=== PATIENT | female | born 1965 | race Hispanic/Latino ===

== ENCOUNTER 2017-01-29 19:14 | Observation (INO) | payer MEDICAID ==
[2017-01-29 19:27] VITALS: BMI 24.7
[2017-01-29] MEDS ORDERED: Albuterol-Ipratrop 3 mg / 0.5 (3 ml) UD IH STA (19:57)
[2017-01-29] MEDS ORDERED: Sodium Chloride 0.9% 1,000 ML IV STA (19:57)
--- NOTE | 2017-01-29 20:02 | ED PDOC ---
Arrival/HPI - General Chief Complaint: Abdominal Pain Time Seen by Provider: 01/29/17 19:22 Historian: Patient - History of Present Illness Narrative History of Present Illness (Text): 01/29/17 19:59 Pt. to ED PMHX. Gastroparesis,Raynauds Phenomena,restless leg syndrome.copd, osteoprosis with c/o abdominal discomfort,nausea onset this evening.Pt. also describes some chest tightness.No hx. of any V/D. No fever or chills.No SOB. Past Medical History - Provider Review Nursing Documentation Reviewed: Yes - Travel History Have you recently traveled outside [place] w/in the past 3 mons?: No - Infectious Disease Hx of Infectious Diseases: None - Tetanus Immunization Tetanus Immunization: Unknown - Cardiac Hx Hypertension: Yes - Pulmonary Hx Chronic Obstructive Pulmonary Disease (COPD): Yes - Neurological Hx Neurological Disorder: Yes Hx Dizziness: Yes - HEENT Hx HEENT Disorder: Yes (TONSILLECTOMY) - Renal Hx Renal Disorder: No - Endocrine/Metabolic Hx Hypothyroidism: Yes - Hematological/Oncological Hx Blood Disorders: Yes Hx Anemia: Yes - Integumentary Hx Dermatological Disorder: No - Musculoskeletal/Rheumatological Hx Musculoskeletal Disorders: Yes Hx Falls: Yes - Gastrointestinal Hx Gastrointestinal Disorders: Yes (APPENDECTOMY,GASTRITIS,GASTROPARESIS, GASTROENTERITIS,) Hx Gastroesophageal Reflux: Yes - Genitourinary/Gynecological Hx Genitourinary Disorders: No (TUBAL LIGATION,HYSTERECTOMY) - Psychiatric Hx Psychophysiologic Disorder: Yes (RX DRUG ABUSE,ETOH ABUSE,SMOKED CIGARETTES QUIT 2 YRS AGO) Hx Anxiety: Yes Hx Depression: Yes Hx Substance Use: Yes (RX DRUG ABUSE) Other/Comment: ANEMIA - Surgical History Hx Appendectomy: Yes Hx Hysterectomy: Yes Other/Comment: tubal ligation - Anesthesia Hx Anesthesia: Yes Hx Anesthesia Reactions: No Hx Malignant Hyperthermia: No - Suicidal Assessment Feels Threatened In Home Enviroment: No Family/Social History - Physician Review Nursing Documentation Reviewed: Yes Family/Social History: No Known Family HX Smoking Status: Former Smoker Hx Alcohol Use: Yes (DRINKS DAILY 3-4 GLASSES OF WINE AND A BOTTLE OF [employer] FINISH IT IN A WEEK) Hx Substance Use: Yes (RX DRUG ABUSE) Hx Substance Use Treatment: No Allergies/Home Meds Allergies/Adverse Reactions: Allergies No Known Allergies Allergy (Verified 11/03/16 18:38) Home Medications: Home Meds Medication Instructions Recorded Confirmed Omeprazole [PrilOSEC] 20 mg PO DAILY 05/22/12 01/29/17 Alendronate [Fosamax] 70 mg PO QWK 07/01/16 01/29/17 Atorvastatin [Lipitor] 20 mg PO DAILY 07/01/16 01/29/17 Fluticasone/Salmeterol 250/50 1 puff IH BID 07/01/16 01/29/17 [Advair Diskus 250/50] Lubiprostone [Amitiza] 24 mcg PO BID 07/01/16 01/29/17 Ergocalciferol [Drisdol 50,000 50,000 units PO DAILY 11/03/16 01/29/17 Intl Units Cap] Escitalopram [Lexapro] 10 mg PO DAILY 11/03/16 01/29/17 Lorazepam [Ativan] 0.5 mg PO Q8 11/03/16 01/29/17 Metoclopramide [Reglan] 5 mg PO QID 11/03/16 01/29/17 Multivit-Min/Iron/Folic/Lutein 1 tab PO DAILY 11/03/16 01/29/17 [Centrum Silver Women Tablet] Tiotropium Pax[place] Inhaler 1 puff INH DAILY 11/03/16 01/29/17 [Spiriva Inhalation Handihaler Device] Zolpidem [Ambien] 5 mg PO HS PRN 11/03/16 01/29/17 traMADol [Ultram] 50 mg PO TID 11/03/16 01/29/17 Review of Systems - Review of Systems Constitutional: Normal Eyes: Normal ENT: Normal Respiratory: Normal Cardiovascular: Normal Gastrointestinal: Abdominal Pain, Nausea Genitourinary Female: Normal Musculoskeletal: Normal Skin: Normal Neurological: Normal Endocrine: Normal Hemo/Lymphatic: Normal Psychiatric: Normal Physical Exam Vital Signs Temp Pulse Resp BP Pulse Ox 01/30/17 01:04 73 116/85 96 01/29/17 22:57 98.1 F 85 16 129/80 100 01/29/17 19:27 97.7 F 103 H 20 120/84 97 Temperature: Afebrile Blood Pressure: Normal Pulse: Regular Respiratory Rate: Normal Appearance: Positive for: Well-Appearing, Non-Toxic, Comfortable Pain Distress: None Mental Status: Positive for: Alert and Oriented X 3 - Systems Exam Head: Present: Atraumatic, Normocephalic Pupils: Present: PERRL Extroacular Muscles: Present: EOMI Conjunctiva: Present: Normal Ears: Present: NORMAL TM Mouth: Present: Moist Mucous Membranes Neck: Present: Normal Range of Motion Respiratory/Chest: Present: Clear to Auscultation, Good Air Exchange. No: Respiratory Distress, Accessory Muscle Use Cardiovascular: Present: Regular Rate and Rhythm, Normal S1, S2. No: Murmurs Abdomen: Present: Normal Bowel Sounds. No: Tenderness, Distention, Peritoneal Signs Back: Present: Normal Inspection Upper Extremity: Present: Normal Inspection. No: Cyanosis, Edema Lower Extremity: Present: Normal Inspection. No: Edema Neurological: Present: GCS=15, CN II-XII Intact, Speech Normal, Motor Func Grossly Intact, Normal Sensory Function Skin: Present: Warm, Dry, Normal Color. No: Rashes Psychiatric: Present: Alert, Oriented x 3, Normal Insight, Normal Concentration Medical Decision Making ED Course and Treatment: 01/29/17 22:22 Reviewed radiology, CXR shows no active disease. - Lab Interpretations Lab Results: 01/29/17 20:20 01/29/17 20:20 Lab Results 01/29/17 20:20: WBC 9.6, RBC 4.77, Hgb 12.8, Hct 39.0, MCV 81.8, MCH 26.8, MCHC 32.8, RDW 13.4, Plt Count 355, MPV 9.8 01/29/17 20:20: Sodium 139, Potassium 4.2, Chloride 97 L, Carbon Dioxide 29, Anion Gap 17, BUN 19, Creatinine 1.2, Est GFR ( Amer) 57, Est GFR (Non- Af Amer) 47, Random Glucose 87, Calcium 10.5, Total Bilirubin 0.5, AST 34, ALT 22, Alkaline Phosphatase 49, Lactate Dehydrogenase 366, Total Creatine Kinase 44 , Troponin I < 0.01 D, Total Protein 8.9 H, Albumin 4.8, Globulin 4.2, Albumin/ Globulin Ratio 1.1, Lipase 52 01/29/17 20:20: PT 11.1, INR 1.03, APTT 25.7 - RAD Interpretation Radiology Orders: 01/29/17 19:57 CHEST PORTABLE [RAD] Stat 01/29/17 22:55 ABD & PELVIS W/O PO OR IV CONT [CT] Stat - EKG Interpretation EKG Interpretation (Text): EKG shows NSR at 80 BPM with normal intervals. Normal EKG. Interpreted by me. Interpreted by ED Physician: Yes Type: 12 lead EKG - Medication Orders Current Medication Orders: Discontinued Medications Albuterol/Ipratropium (Duoneb 3 Mg/0.5 Mg (3 Ml) Ud) 3 ml IH ONCE STA Stop: 01/29/17 19:58 Last Admin: 01/29/17 20:30 Dose: 3 ml Famotidine (Pepcid) 20 mg IVP STAT STA Stop: 01/29/17 19:58 Last Admin: 01/29/17 20:30 Dose: 20 mg Sodium Chloride (Sodium Chloride 0.9%) 1,000 mls @ 999 mls/hr IV .Q1H1M STA Stop: 01/29/17 20:57 Last Admin: 01/29/17 20:31 Dose: 999 mls/hr Iohexol (Omnipaque 350 100 Ml) Confirm Administered Dose 350 mg .ROUTE .STK-MED ONE Stop: 01/29/17 23:19 Ketorolac Tromethamine (Toradol) 30 mg IVP ONCE ONE Stop: 01/29/17 19:58 Last Admin: 01/29/17 20:31 Dose: 30 mg Metoclopramide HCl (Reglan) 10 mg IVP ONCE ONE Stop: 01/29/17 22:57 Last Admin: 01/29/17 23:39 Dose: 10 mg Morphine Sulfate (Morphine) 2 mg IVP STAT STA Stop: 01/29/17 22:57 Last Admin: 01/29/17 23:39 Dose: 2 mg Ondansetron HCl (Zofran Inj) 4 mg IVP ONCE ONE Stop: 01/29/17 19:58 Last Admin: 01/29/17 20:31 Dose: 4 mg ED OBSERVATION Date of observation admission: 01/29/17 Time of observation admission: 20:00 - Observation admission statement Patient is being placed in observation because:: evaluation of chest/abdominal pain - Goals of Observation Goals of observation are:: treatment of symptoms, determine etiology of symptoms - Progress Note Progress Note: 01/29/17 20:00 EKG shows NSR at 80 BPM with normal intervals. Normal EKG. Interpreted by me. 05/12/17 22:22 Reviewed radiology, CXR shows no active disease. 01/30/17 00:00 Pt in no acute distress, vital signs stable. 01/30/17 01:13 CT Abdomen and Pelvis shows: Lower thorax: There is minimal bibasilar atelectasis. ABDOMEN: Liver: There are no focal liver lesions present. Gallbladder and bile ducts: The gallbladder is contracted but otherwise normal. No calcified stones. No ductal dilation. Pancreas: The pancreas is normal. No ductal dilation. Spleen: The spleen is normal. Adrenals: The adrenal glands are normal. Kidneys and ureters: There is a 5 mm nonobstructing left upper pole renal calculus. There is no evidence of hydronephrosis. Stomach and bowel: The stomach is normal. Colonic constipation is present. There is no evidence of intestinal obstruction. No mucosal thickening. Appendix: No findings to suggest acute appendicitis. PELVIS: Bladder: The bladder is normal. No stones. Reproductive: There has been a hysterectomy. ABDOMEN and PELVIS: Intraperitoneal space: There is no evidence of free intraperitoneal fluid. There is no free intraperitoneal air. Bones/joints: No acute fracture. No dislocation. Soft tissues: Unremarkable. Vasculature: The aorta demonstrates moderate atherosclerotic calcification. No abdominal aortic aneurysm. Lymph nodes: There is no evidence of lymphadenopathy. IMPRESSION: No acute findings. 01/30/17 01:16 Case discussed with medical assistant secretary, who is aware and agrees with plan. Case discussed with Dr. Hernandez, who is aware and agrees with plan. Accepts pt in to hospitalist service. Pt will go to Telemetry observation for chest pain. Pt agreeable with plan. Disposition/Present on Arrival - Present on Arrival Any Indicators Present on Arrival: No History of DVT/PE: No History of Uncontrolled Diabetes: No Urinary Catheter: No History of Decub. Ulcer: No History Surgical Site Infection Following: None - Disposition Have Diagnosis and Disposition been Completed?: Yes Diagnosis: Chest pain, Abdominal pain Disposition: HOSPITALIZED Disposition Time: 01:31 Patient Plan: Observation Patient Problems: Current Active Problems Problem Status Onset Abdominal pain Acute Chest pain Acute Condition: STABLE Discharge Instructions (ExitCare): Chest Pain (ED)
[2017-01-29 20:35] LABS: MEAN CELL VOLUME 81.8 fL (80.0-105.0); MEAN CORPUSCULAR HEMOGLOBIN 26.8 pg (25.0-35.0); MEAN CORPUSCULAR HGB CONC 32.8 g/dl (31.0-37.0); MEAN PLATELET VOLUME 9.8 fl (7.0-11.0); RED CELL DISTRIBUTION WIDTH 13.4 % (11.5-14.5); WHITE BLOOD COUNT 9.6 10^3/ul (4.5-11.0)
[2017-01-29 20:42] LABS: ALB/GLOB RATIO 1.1 (1.1-1.8); ALKALINE PHOSPHATASE 49 U/L (38-133); ALT/SGPT 22 U/L (7-56); AST/SGOT 34 U/L (15-39); BILIRUBIN,TOTAL 0.5 mg/dL (0.2-1.3); BLOOD UREA NITROGEN 19 mg/dL (7-21); CALCIUM 10.5 mg/dL (8.4-10.5); CARBON DIOXIDE 29 mmol/L (21-33); CHLORIDE 97 mmol/L (98-107); GFR AFRICAN-AMERICAN 57; GLUCOSE,RANDOM 87 mg/dL (70-110); INR 1.03 (0.93-1.08); LIPASE 52 U/L (23-300); PARTIAL THROMBOPLASTIN TIME 25.7 Seconds (23.7-30.8); POTASSIUM 4.2 mmol/L (3.6-5.0); SODIUM 139 mmol/L (132-148); TOTAL PROTEIN 8.9 g/dL (5.8-8.3)
[2017-01-29 21:09] LABS: TROPONIN I < 0.01 ng/mL
[2017-01-29] MEDS ORDERED: Morphine 2 mg/ml ISec IVP STA (22:56)
[2017-01-29] MEDS ORDERED: Iohexol 350 MG/100 ML VIAL ONE (23:18)
--- NOTE | 2017-01-30 00:54 | CT ---
EXAM: CT Abdomen and Pelvis Without Intravenous Contrast CLINICAL HISTORY: 51 years old, female; Pain; Abdominal pain; Acute TECHNIQUE: Axial computed tomography images of the abdomen and pelvis without intravenous contrast. This CT exam was performed using one or more of the following dose reduction techniques: automated exposure control, adjustment of the mA and/or kV according to patient size, and/or use of iterative reconstruction technique. Coronal and sagittal reformatted images were created and reviewed. COMPARISON: CT - ABD PELVIS PO CONTRAST ONLY 08/10/2016 5:19:04 PM FINDINGS: Lower thorax: There is minimal bibasilar atelectasis. ABDOMEN: Liver: There are no focal liver lesions present. Gallbladder and bile ducts: The gallbladder is contracted but otherwise normal. No calcified stones. No ductal dilation. Pancreas: The pancreas is normal. No ductal dilation. Spleen: The spleen is normal. Adrenals: The adrenal glands are normal. Kidneys and ureters: There is a 5 mm nonobstructing left upper pole renal calculus. There is no evidence of hydronephrosis. Stomach and bowel: The stomach is normal. Colonic constipation is present. There is no evidence of intestinal obstruction. No mucosal thickening. Appendix: No findings to suggest acute appendicitis. PELVIS: Bladder: The bladder is normal. No stones. Reproductive: There has been a hysterectomy. ABDOMEN and PELVIS: Intraperitoneal space: There is no evidence of free intraperitoneal fluid. There is no free intraperitoneal air. Bones/joints: No acute fracture. No dislocation. Soft tissues: Unremarkable. Vasculature: The aorta demonstrates moderate atherosclerotic calcification. No abdominal aortic aneurysm. Lymph nodes: There is no evidence of lymphadenopathy. IMPRESSION: No acute findings.
[2017-01-30 02:42] VITALS: O2SAT 94
[2017-01-30] MEDS: Sodium Chloride 0.9% 1,000 ML IV SCH ×2 (02:44→11:15)
--- NOTE | 2017-01-30 02:45 | US ---
EXAM: US Abdomen Complete CLINICAL HISTORY: 51 years old, female; Pain; Abdominal pain; Generalized; Additional info: Evaluate for cholelithiasis TECHNIQUE: Real-time ultrasound of the abdomen (complete) with image documentation. COMPARISON: CT - ABD PELVIS W/O PO OR IV CONT 01/29/2017 11:55:49 PM FINDINGS: Liver: Normal echogenicity. No mass. No intrahepatic bile duct dilatation. Gallbladder: No gallstones. No wall thickening. No pericholecystic fluid. No sonographic Campos's sign. Common bile duct: No dilatation. No stones. Pancreas: Unremarkable as visualized. Kidneys: Normal echogenicity. No hydronephrosis. Spleen: No splenomegaly. Aorta: Unremarkable. No aneurysm. Inferior vena cava: Unremarkable. Free fluid: No significant free fluid. IMPRESSION: 1.No acute findings. 2.Non-acute findings are described above.
--- NOTE | 2017-01-30 03:21 | CP.PCM.HP ---
History of Present Illness - History of Present Illness History of Present Illness: The patient is a 51 year old woman with a history of rheumatoid arthritis, osteoporosis, Parkinson's disease, hypercholesterolemia, restless leg syndrome, hypothyroidism, COPD and gastroparesis, who presents with chest pain and abdominal pain. She states that the two areas are distinct and started at different times. The chest pain began approximately 30 minutes prior to her arrival to the ED. It is a constant, non-radiating, substernal "tightness". The pain is not associated with exertion, oral intake, SOB or diaphoresis. The abdominal pain is intermittent and located in both the RUQ and mid-epigastric regions. The abdominal pain is unaffected by oral intake but is associated with nausea. She denies bowel abnormalities, abdominal distention, dysuria, F/C, recent travel or recent dietary changes. Her abdominal pain began two days ago. Of note, previous records indicate that patient has a history of polysubstance abuse which she denied completely during the interview. She will be admitted to the telemetry [facility] for observation, in order to rule out ACS. Present on Admission - Present on Admission Any Indicators Present on Admission: No History of DVT/PE: No History of Uncontrolled Diabetes: No Urinary Catheter: No Review of Systems - Review of Systems All systems: reviewed and no additional remarkable complaints except - Constitutional Constitutional: As Per HPI - EENT Eyes: As Per HPI Ears: As Per HPI Nose/Mouth/Throat: As Per HPI - Cardiovascular Cardiovascular: As Per HPI - Respiratory Respiratory: As Per HPI - Gastrointestinal Gastrointestinal: As Per HPI - Genitourinary Genitourinary: As Per HPI - Musculoskeletal Musculoskeletal: As Per HPI - Neurological Neurological: As Per HPI Past Patient History - Infectious Disease Hx of Infectious Diseases: None - Tetanus Immunizations Tetanus Immunization: Unknown - Past Social History Smoking Status: Former Smoker Drugs: Denies - CARDIAC Hx Hypertension: Yes - PULMONARY Hx Chronic Obstructive Pulmonary Disease (COPD): Yes - NEUROLOGICAL Hx Neurological Disorder: Yes Hx Dizziness: Yes - HEENT Hx HEENT Problems: Yes (TONSILLECTOMY) - RENAL Hx Chronic Kidney Disease: No - ENDOCRINE/METABOLIC Hx Hypothyroidism: Yes - HEMATOLOGICAL/ONCOLOGICAL Hx Blood Disorders: Yes Hx Anemia: Yes - INTEGUMENTARY Hx Dermatological Problems: No - MUSCULOSKELETAL/RHEUMATOLOGICAL Hx Musculoskeletal Disorders: Yes Hx Falls: Yes - GASTROINTESTINAL Hx Gastrointestinal Disorders: Yes (APPENDECTOMY,GASTRITIS,GASTROPARESIS, GASTROENTERITIS,) Hx Gastroesophageal Reflux: Yes - GENITOURINARY/GYNECOLOGICAL Hx Genitourinary Disorders: No (TUBAL LIGATION,HYSTERECTOMY) - PSYCHIATRIC Hx Psychophysiologic Disorder: Yes (RX DRUG ABUSE,ETOH ABUSE,SMOKED CIGARETTES QUIT 2 YRS AGO) Hx Anxiety: Yes Hx Depression: Yes Hx Substance Use: Yes (RX DRUG ABUSE) Other/Comment: ANEMIA - SURGICAL HISTORY Hx Appendectomy: Yes Hx Hysterectomy: Yes Other/Comment: tubal ligation - ANESTHESIA Hx Anesthesia: Yes Hx Anesthesia Reactions: No Hx Malignant Hyperthermia: No Meds Allergies/Adverse Reactions: Allergies Allergy/AdvReac Type Severity Reaction Status Date / Time No Known Allergies Allergy Verified 11/03/16 18:38 Physical Exam - Constitutional Additional comments: Mildly uncomfortable appearing due to abdominal and chest pains. A&Ox4 - Head Exam Head Exam: ATRAUMATIC, NORMAL INSPECTION, NORMOCEPHALIC - Eye Exam Eye Exam: EOMI, Normal appearance, PERRL - ENT Exam ENT Exam: Mucous Membranes Moist, Normal Exam Additional comments: Anicteric sclera - Neck Exam Neck exam: Positive for: Normal Inspection - Respiratory Exam Respiratory Exam: Clear to Auscultation Bilateral, NORMAL BREATHING PATTERN - Cardiovascular Exam Cardiovascular Exam: REGULAR RHYTHM Additional comments: No reproducible chest tenderness - GI/Abdominal Exam Additional comments: Mild tenderness to palpation in the mid-epigastric and RUQ regions; No rebound tenderness or peritoneal signs. Non-distended, soft abdomen with normal bowel sounds. No flank tenderness. Results - Vital Signs Recent Vital Signs: Last Vital Signs Temp 98.1 F 01/29/17 22:57 Pulse 74 01/30/17 02:42 Resp 16 01/30/17 02:42 BP 124/89 01/30/17 02:42 Pulse Ox 94 L 01/30/17 02:42 - Labs Result Diagrams: 01/29/17 20:20 01/29/17 20:20 - Imaging and Cardiology CT scan - abdomen Status: Report reviewed by me Assessment & Plan - Assessment and Plan (Free Text) Plan: A/P: The patient is a 51 year old woman with a history of rheumatoid arthritis, osteoporosis, Parkinson's disease, hypercholesterolemia, restless leg syndrome, hypothyroidism, COPD and gastroparesis, who is being admitted to the telemetry [facility] for observation in order to rule out ACS and control her abdominal pain. 1. Chest Pain (rule out ACS): -cardiac risk factors include, chronic cigarette smoker, RA and dyslipidemia -check serial trop's and EKG's -will also check HgA1c, lipid panel and thyroid function tests -will start baby ASA and continue pt's home dose of Lipitor -order for on-call hydraulic spinner placed (Dr. Fortune) -heart healthy diet while pt's being ruled out for ACS -check urine drug screen -of note, patient had a normal MUGA scan back in Sep 2016 2. Acute Abdominal Pain: -ddx: Cholelithiasis vs GERD -CT-A/P negative for acute disease -will order a RUQ U/S to better evaluate for gallstones -Protontix 40mg IV daily -PRN IV Zofran and Morphine as needed for symptomatic relief 3. Hypothyroidism: -continue home dose of Synthroid -check thyroid function tests 4. Hypercholesterolemia: -continue home dose of Lipitor 10mg qhs -check lipid panel 5. COPD: -no acute symptoms -continue home maintenance regimen -O2 via NC as needed to keep sats > 92% DVT PPx: SCD's and SC Lovenox GI PPx: Protonix
[2017-01-30] MEDS: Morphine 2 mg/ml ISec IVP PRN ×2 (03:29→09:07)
[2017-01-30 04:15] VITALS: RESP 20
[2017-01-30] MEDS ORDERED: Levothyroxine 50 MCG TAB PO SCH (07:30)
[2017-01-30 07:53] LABS: ADD MANUAL DIFF? NO
[2017-01-30] MEDS ORDERED: Budesonide 0.5 mg/2 ml Inhal Susp UD IH SCH (08:00)
[2017-01-30] MEDS ORDERED: Arformoterol 15 mcg/2 ml Inh Sol IH SCH (08:00)
[2017-01-30 08:02] LABS: BASO # 0.05 K/mm3 (0.0-2.0); BASO % 0.6 % (0.0-3.0); EOS # 0.2 (0.0-0.7); EOS % 2.3 % (1.5-5.0); GRAN # 4.76 (1.4-6.5); GRAN % 58.1 % (50.0-68.0); HEMATOCRIT 35.4 % (36.0-48.0); LYMPH # 2.6 (1.2-3.4); MEAN CELL VOLUME 82.5 fL (80.0-105.0); MEAN CORPUSCULAR HEMOGLOBIN 26.6 pg (25.0-35.0); MEAN CORPUSCULAR HGB CONC 32.2 g/dl (31.0-37.0); MEAN PLATELET VOLUME 10.1 fl (7.0-11.0); MONO # 0.6 (0.1-0.6); PLATELET COUNT 286 10^3/uL (120.0-450.0); RED CELL DISTRIBUTION WIDTH 13.6 % (11.5-14.5); WHITE BLOOD COUNT 8.2 10^3/ul (4.5-11.0)
[2017-01-30 08:07] LABS: TROPONIN I < 0.01 ng/mL
[2017-01-30 08:17] LABS: ALB/GLOB RATIO 1.2 (1.1-1.8); ALKALINE PHOSPHATASE 47 U/L (38-133); ALT/SGPT 33 U/L (7-56); AST/SGOT 39 U/L (15-39); BILIRUBIN,TOTAL 0.6 mg/dL (0.2-1.3); BLOOD UREA NITROGEN 15 mg/dL (7-21); CALCIUM 9.3 mg/dL (8.4-10.5); CARBON DIOXIDE 26 mmol/L (21-33); CHLORIDE 106 mmol/L (98-107); CHOLESTEROL 172 mg/dL (130-200); GFR AFRICAN-AMERICAN > 60; GLUCOSE,RANDOM 88 mg/dL (70-110); MAGNESIUM 1.8 mg/dL (1.7-2.2); PHOSPHOROUS 4.1 mg/dL (2.5-4.5); POTASSIUM 4.5 mmol/L (3.6-5.0); SODIUM 142 mmol/L (132-148); TOTAL PROTEIN 7.4 g/dL (5.8-8.3)
[2017-01-30 08:27] LABS: FREE T4 0.89 ng/dL (0.78-2.19)
--- NOTE | 2017-01-30 08:53 | RAD ---
HISTORY: abdominal pain COMPARISON: 11/03/2016 FINDINGS: LUNGS: No active pulmonary disease. PLEURA: No significant pleural effusion identified, no pneumothorax apparent. CARDIOVASCULAR: Normal. OSSEOUS STRUCTURES: No significant abnormalities. VISUALIZED UPPER ABDOMEN: Normal. OTHER FINDINGS: None. IMPRESSION: No active disease. No significant interval change.
[2017-01-30 09:15] LABS: THYROID STIMULATING HORMONE 2.32 mIU/mL (0.46-4.68)
[2017-01-30] MEDS ORDERED: Ergocalciferol 50,000 Intl Units Cap PO SCH (10:00)
[2017-01-30] MEDS ORDERED: Enoxaparin 30 mg Syringe SC SCH (10:00)
[2017-01-30] MEDS ORDERED: Tiotropium 18 mcg Cap For Inhalation INH SCH (10:00)
[2017-01-30] MEDS ORDERED: Multivitamin With Minerals Tab PO SCH (10:00)
--- NOTE | 2017-01-30 10:00 | CARD ---
APPROVED REPORT EKG Measurement Heart [id number] CT [id number] [id number] <Conclusion> Normal sinus rhythm LVH by voltage No change except slower rate
[2017-01-30 11:40] VITALS: BP 118/83; PULSE 80; TEMP 97.9
[2017-01-30 14:21] LABS: TROPONIN I < 0.01 ng/mL
--- NOTE | 2017-01-30 14:31 | CON ---
DATE: 01/30/2017 REASON FOR CONSULTATION: Chest pain. HISTORY OF PRESENT ILLNESS: The patient is a 51-year-old white female who has a history of parkinson ism, history of rheumatoid arthritis, osteoporosis, COPD, hypothyroidism and gastroparesis, presented because of what she describes as chest tightness that is not radiating. The patient denies any asso ciated diaphoresis, dizziness or syncope. SOCIAL HISTORY: The patient is a former smoker who quit recently. MEDICATIONS: Ambien 5 mg at bedtime, aspirin 81 mg once a day, Ativan 2 mg intravenously q. 4 hours, Fosamax 70 mg p.o. weekly, Lipitor 20 mg once a day, Lovenox 30 mg subcutaneous once a day, Protonix 40 mg intravenously once a day, Reglan 10 mg intravenously q. 6 hours, normal saline at 100 mL an ho ur, Synthroid 50 mcg once a day, multivitamin 1 tablet once a day. PHYSICAL EXAMINATION: GENERAL: The patient is a middle-aged female who does not appear to be in any distress. VITAL SIGNS: Blood pressure 118/83, heart rate 80, temperature 97.9, respirations 20. HEENT: Normocephalic. NECK: No JVD. CHEST: Clear. HEART: S1, S2 regular. ABDOMEN: Soft. EXTREMITIES: No edema, no calf tenderness. LABORATORY DATA: Hemoglobin and hematocrit 11.4 and 35.4. White count and platelet count are within normal limits. Alcohol level is below 10. Today's SMA-7 is entirely within normal limits. Two set s of troponins are negative. Lipid profile is within normal limits. TSH level as well as free T4 ar e within normal limits. EKG revealed sinus rhythm, minimal voltage criteria for LVH. Echocardiograp h study in June of last year revealed an ejection fraction in the range of 45%-50% with mild globa l hypokinesis of the left ventricle. ASSESSMENT: 1. Chest pain, myocardial infarction is ruled out. 2. Mildly depressed left ventricular systolic function. 3. Parkinsonism. RECOMMENDATIONS: I did review the abdominal ultrasound which revealed no acute findings. I also rev iewed the x-ray, which was unremarkable except for prominent bronchovascular markings. Continue curre nt aspirin 81 mg once a day, Lipitor 20 mg once a day, Synthroid at 50 mcg once a day, start Cozaar 2 5 mg orally once a day and Lopressor 25 mg twice a day. Terrence Turcios MD cc: [id number] TT: 01/30/2017 14:30:33 Confirmation # [id number] Dictation # [id number] rn
[2017-01-30] MEDS ORDERED: Alum-Mag Hydrox-Simethicone Susp (30 mL) PO ONE (14:50)
--- NOTE | 2017-01-30 14:50 | CP.PCM.DIS ---
<Chuck Jimenez - Last Filed: 01/31/17 15:11> Provider - Provider Date of Admission: 01/30/17 02:21 Attending physician: Juanita Singh MD Primary care physician: Dr. Lomas Consults: Cardio: Devika Time Spent in preparation of Discharge (in minutes): 45 Hospital Course - Lab Results Lab Results: Most Recent Lab Values WBC 8.2 10^3/ul (4.5-11.0) 01/30/17 06:30 RBC 4.29 10^6/uL (3.5-6.1) 01/30/17 06:30 Hgb 11.4 gm/dL (12.0-16.0) L 01/30/17 06:30 Hct 35.4 % (36.0-48.0) L 01/30/17 06:30 MCV 82.5 fL (80.0-105.0) 01/30/17 06:30 MCH 26.6 pg (25.0-35.0) 01/30/17 06:30 MCHC 32.2 g/dl (31.0-37.0) 01/30/17 06:30 RDW 13.6 % (11.5-14.5) 01/30/17 06:30 Plt Count 286 10^3/uL (120.0-450.0) 01/30/17 06:30 MPV 10.1 fl (7.0-11.0) 01/30/17 06:30 Gran % 58.1 % (50.0-68.0) 01/30/17 06:30 Lymph % (Auto) 32.0 % (22.0-35.0) 01/30/17 06:30 [place] % (Auto) 7.0 % (1.0-6.0) H 01/30/17 06:30 Eos % (Auto) 2.3 % (1.5-5.0) 01/30/17 06:30 Baso % (Auto) 0.6 % (0.0-3.0) 01/30/17 06:30 Gran # 4.76 (1.4-6.5) 01/30/17 06:30 Lymph # 2.6 (1.2-3.4) 01/30/17 06:30 [place] # 0.6 (0.1-0.6) 01/30/17 06:30 Eos # 0.2 (0.0-0.7) 01/30/17 06:30 Baso # 0.05 K/mm3 (0.0-2.0) 01/30/17 06:30 PT 11.1 Seconds (9.9-11.8) 01/29/17 20:20 INR 1.03 (0.93-1.08) 01/29/17 20:20 APTT 25.7 Seconds (23.7-30.8) 01/29/17 20:20 Sodium 142 mmol/L (132-148) 01/30/17 06:30 Potassium 4.5 mmol/L (3.6-5.0) 01/30/17 06:30 Chloride 106 mmol/L (98-107) 01/30/17 06:30 Carbon Dioxide 26 mmol/L (21-33) 01/30/17 06:30 Anion Gap 15 (10-20) 01/30/17 06:30 BUN 15 mg/dL (7-21) 01/30/17 06:30 Creatinine 1.1 mg/dL (0.5-1.4) 01/30/17 06:30 Est GFR ( Amer) > 60 01/30/17 06:30 Est GFR (Non-Af Amer) 52 01/30/17 06:30 Random Glucose 88 mg/dL (70-110) 01/30/17 06:30 Calcium 9.3 mg/dL (8.4-10.5) 01/30/17 06:30 Phosphorus 4.1 mg/dL (2.5-4.5) 01/30/17 06:30 Magnesium 1.8 mg/dL (1.7-2.2) 01/30/17 06:30 Total Bilirubin 0.6 mg/dL (0.2-1.3) 01/30/17 06:30 AST 39 U/L (15-39) 01/30/17 06:30 ALT 33 U/L (7-56) 01/30/17 06:30 Alkaline Phosphatase 47 U/L (38-133) 01/30/17 06:30 Lactate Dehydrogenase 366 U/L (333-699) 01/29/17 20:20 Total Creatine Kinase 39 U/L (35-230) 01/30/17 13:50 Troponin I < 0.01 ng/mL 01/30/17 13:50 Total Protein 7.4 g/dL (5.8-8.3) 01/30/17 06:30 Albumin 4.1 g/dL (3.0-4.8) 01/30/17 06:30 Globulin 3.3 gm/dL 01/30/17 06:30 Albumin/Globulin Ratio 1.2 (1.1-1.8) 01/30/17 06:30 Triglycerides 143 mg/dL (35-160) 01/30/17 06:30 Cholesterol 172 mg/dL (130-200) 01/30/17 06:30 LDL Cholesterol Direct 86 mg/dL (0-129) 01/30/17 06:30 HDL Cholesterol 39 mg/dL (29-60) 01/30/17 06:30 Lipase 52 U/L (23-300) 01/29/17 20:20 Free T4 0.89 ng/dL (0.78-2.19) 01/30/17 06:30 TSH 3rd Generation 2.32 mIU/mL (0.46-4.68) 01/30/17 06:30 Urine Opiates Screen Positive (NEGATIVE) H 01/30/17 12:15 Urine Methadone Screen Negative (NEGATIVE) 01/30/17 12:15 Ur Barbiturates Screen Negative (NEGATIVE) 01/30/17 12:15 Ur Phencyclidine Scrn Negative (NEGATIVE) 01/30/17 12:15 Ur Amphetamines Screen Negative (NEGATIVE) 01/30/17 12:15 U Benzodiazepines Scrn Negative (NEGATIVE) 01/30/17 12:15 U Oth Cocaine Metabols Negative (NEGATIVE) 01/30/17 12:15 U Cannabinoids Screen Negative (NEGATIVE) 01/30/17 12:15 Alcohol, Quantitative < 10 mg/dL (0-10) 01/30/17 06:30 - Hospital Course Hospital Course: Upon Admission: 51yo F with PMHx of RA, Osteoporosis, Parkinson's, Hypercholesterolemia, Restless leg, Hypothyroidism, COPD, Gastroparesis here for evaluation of chest pain and abdominal pain. EKG with no acute findings. Troponins were negative x3 and ACS was ruled out. CXR - negative. CT Abd/Pelvis was negative. Abd US was negative. Cardiology consult was obtained who recommended continued current management and cleared for discharge with out-patient follow-up. Patient was deemed stable for discharge with close follow up with her PMD. Patient was given prescription for Protonix. Patient understands and agrees with plan. 1. Chest pain; ACS ruled out 2. Abd pain; Protonix 40mg Daily 3. Hx of Hypothyroidism 4. Hx of HLD 5. Hx of COPD 6. Hx of Parkinson's Upon Discharge: Patient is cleared for discharge as per Dr. Singh 1. Follow up with your Primary Care Physician within 1 week 2. You may resume your home meds 3. Take new med as directed 4. Return to the ER with any concerning symptoms New Prescription: Protonix 40mg PO Daily #30/0 Discharge Exam - Head Exam Head Exam: ATRAUMATIC, NORMAL INSPECTION, NORMOCEPHALIC - Eye Exam Eye Exam: EOMI, Normal appearance. absent: Scleral icterus - ENT Exam ENT Exam: Mucous Membranes Moist - Respiratory Exam Respiratory Exam: Clear to PA & Lateral, NORMAL BREATHING PATTERN, UNREMARKABLE. absent: Rhonchi, Wheezes - Cardiovascular Exam Cardiovascular Exam: RRR, +S1, +S2. absent: JVD - GI/Abdominal Exam GI & Abdominal Exam: Normal Bowel Sounds, Soft. absent: Distended, Firm, Guarding, Rebound, Rigid, Tenderness - Extremities Exam Extremities exam: normal inspection - Neurological Exam Neurological exam: Alert, Oriented x3 - Psychiatric Exam Psychiatric exam: Normal Affect, Normal Mood - Skin Skin Exam: Dry, Intact, Normal Color, Warm Discharge Plan - Discharge Medications Prescriptions: Pantoprazole Sodium [Protonix] 40 mg PO DAILY #30 ect - Follow Up Plan Condition: STABLE Disposition: HOME/ ROUTINE Instructions: Chest Pain (DC), Chest Pain (GEN), Heart Healthy Diet (DC), Heart Healthy Diet (GEN) Additional Instructions: Patient is cleared for discharge as per Dr. Singh 1. Follow up with your Primary Care Physician within 1 week 2. You may resume your home meds 3. Take new med as directed 4. Return to the ER with any concerning symptoms New Prescription: Protonix 40mg PO Daily #30/0 <Juanita Singh - Last Filed: 01/31/17 21:45> Provider - Provider Date of Admission: 01/30/17 02:21 Attending physician: Juanita Singh MD [place] [facility] Course - Lab Results Lab Results: Most Recent Lab Values WBC 8.2 10^3/ul (4.5-11.0) 01/30/17 06:30 RBC 4.29 10^6/uL (3.5-6.1) 01/30/17 06:30 Hgb 11.4 gm/dL (12.0-16.0) L 01/30/17 06:30 Hct 35.4 % (36.0-48.0) L 01/30/17 06:30 MCV 82.5 fL (80.0-105.0) 01/30/17 06:30 MCH 26.6 pg (25.0-35.0) 01/30/17 06:30 MCHC 32.2 g/dl (31.0-37.0) 01/30/17 06:30 RDW 13.6 % (11.5-14.5) 01/30/17 06:30 Plt Count 286 10^3/uL (120.0-450.0) 01/30/17 06:30 MPV 10.1 fl (7.0-11.0) 01/30/17 06:30 Gran % 58.1 % (50.0-68.0) 01/30/17 06:30 Lymph % (Auto) 32.0 % (22.0-35.0) 01/30/17 06:30 [place] % (Auto) 7.0 % (1.0-6.0) H 01/30/17 06:30 Eos % (Auto) 2.3 % (1.5-5.0) 01/30/17 06:30 Baso % (Auto) 0.6 % (0.0-3.0) 01/30/17 06:30 Gran # 4.76 (1.4-6.5) 01/30/17 06:30 Lymph # 2.6 (1.2-3.4) 01/30/17 06:30 [place] # 0.6 (0.1-0.6) 01/30/17 06:30 Eos # 0.2 (0.0-0.7) 01/30/17 06:30 Baso # 0.05 K/mm3 (0.0-2.0) 01/30/17 06:30 PT 11.1 Seconds (9.9-11.8) 01/29/17 20:20 INR 1.03 (0.93-1.08) 01/29/17 20:20 APTT 25.7 Seconds (23.7-30.8) 01/29/17 20:20 Sodium 142 mmol/L (132-148) 01/30/17 06:30 Potassium 4.5 mmol/L (3.6-5.0) 01/30/17 06:30 Chloride 106 mmol/L (98-107) 01/30/17 06:30 Carbon Dioxide 26 mmol/L (21-33) 01/30/17 06:30 Anion Gap 15 (10-20) 01/30/17 06:30 BUN 15 mg/dL (7-21) 01/30/17 06:30 Creatinine 1.1 mg/dL (0.5-1.4) 01/30/17 06:30 Est GFR ( Amer) > 60 01/30/17 06:30 Est GFR (Non-Af Amer) 52 01/30/17 06:30 Random Glucose 88 mg/dL (70-110) 01/30/17 06:30 Calcium 9.3 mg/dL (8.4-10.5) 01/30/17 06:30 Phosphorus 4.1 mg/dL (2.5-4.5) 01/30/17 06:30 Magnesium 1.8 mg/dL (1.7-2.2) 01/30/17 06:30 Total Bilirubin 0.6 mg/dL (0.2-1.3) 01/30/17 06:30 AST 39 U/L (15-39) 01/30/17 06:30 ALT 33 U/L (7-56) 01/30/17 06:30 Alkaline Phosphatase 47 U/L (38-133) 01/30/17 06:30 Lactate Dehydrogenase 366 U/L (333-699) 01/29/17 20:20 Total Creatine Kinase 39 U/L (35-230) 01/30/17 13:50 Troponin I < 0.01 ng/mL 01/30/17 13:50 Total Protein 7.4 g/dL (5.8-8.3) 01/30/17 06:30 Albumin 4.1 g/dL (3.0-4.8) 01/30/17 06:30 Globulin 3.3 gm/dL 01/30/17 06:30 Albumin/Globulin Ratio 1.2 (1.1-1.8) 01/30/17 06:30 Triglycerides 143 mg/dL (35-160) 01/30/17 06:30 Cholesterol 172 mg/dL (130-200) 01/30/17 06:30 LDL Cholesterol Direct 86 mg/dL (0-129) 01/30/17 06:30 HDL Cholesterol 39 mg/dL (29-60) 01/30/17 06:30 Lipase 52 U/L (23-300) 01/29/17 20:20 Free T4 0.89 ng/dL (0.78-2.19) 01/30/17 06:30 TSH 3rd Generation 2.32 mIU/mL (0.46-4.68) 01/30/17 06:30 Urine Opiates Screen Positive (NEGATIVE) H 01/30/17 12:15 Urine Methadone Screen Negative (NEGATIVE) 01/30/17 12:15 Ur Barbiturates Screen Negative (NEGATIVE) 01/30/17 12:15 Ur Phencyclidine Scrn Negative (NEGATIVE) 01/30/17 12:15 Ur Amphetamines Screen Negative (NEGATIVE) 01/30/17 12:15 U Benzodiazepines Scrn Negative (NEGATIVE) 01/30/17 12:15 U Oth Cocaine Metabols Negative (NEGATIVE) 01/30/17 12:15 U Cannabinoids Screen Negative (NEGATIVE) 01/30/17 12:15 Alcohol, Quantitative < 10 mg/dL (0-10) 01/30/17 06:30 Attending/Attestation - Attestation I have personally seen and examined this patient.: Yes I have fully participated in the care of the patient.: Yes I have reviewed all pertinent clinical information, including history, physical exam and plan: Yes Notes (Text): 01/30/17 51 year old female with multiple medical problems including chronic pain on chronic opiates who was admitted for chest pain and abdominal pain. Serial cardiac enzymes were negative and ACS was ruled out. CT abd/pelvis and US abdomen were negative. She was started on PPI. She was seen by cardiology. Patient is discharged home today to follow up with her pmd. If abdominal pain is persistent recommend to follow up with GI as outpatient. Juanita Singh MD Hospitalist.
== END 2017-01-30 16:25 | disposition home or self-care (01) ==
LOC: ED 19:14 → ERH 01-30 02:21 → 2RSO 01-30 03:16
PROVIDERS: ADMIT Internal Medicine; ATTEND Internal Medicine
DX: R07.9 Chest pain, unspecified (principal); R10.9 Unspecified abdominal pain; K31.84 Gastroparesis; J44.9 Chronic obstructive pulmonary disease, unspecified; G25.81 Restless legs syndrome; I73.00 Raynaud's syndrome without gangrene; M81.0 Age-related osteoporosis without current pathological fracture; M06.9 Rheumatoid arthritis, unspecified; G20 Parkinson's disease; E78.00 Pure hypercholesterolemia, unspecified; E03.9 Hypothyroidism, unspecified; E78.5 Hyperlipidemia, unspecified; G89.29 Other chronic pain; Z79.891 Long term (current) use of opiate analgesic; Z87.891 Personal history of nicotine dependence
CPT/HCPCS: 36415; 71010; 74176; 76700; 80053; 80061; 80320; 80324; 80345; 80346; 80349; 80353; 80358; 80361; 82550; 83036; 83615; 83690; 83735; 83992; 84100; 84439; 84443; 84484; 85025; 85027; 85610; 85730; 93005; 94640; 96360; 96374; 99285; C9113; G0378; J1650; J1885; J2060; J2270; J2405; J2765; J7040

== ENCOUNTER 2017-02-25 14:39 | Inpatient (IN) | payer MEDICAID ==
[2017-02-25 14:40] VITALS: BMI 24.7
[2017-02-25] MEDS ORDERED: Sodium Chloride 0.9% 1,000 ML IV STA (15:42)
[2017-02-25] MEDS ORDERED: Morphine 4 mg/ml ISec IVP STA ×2 (15:42→20:25)
[2017-02-25 16:38] LABS: ADD MANUAL DIFF? NO
[2017-02-25] MEDS ORDERED: Iohexol 240 (50 ml) ONE (16:47)
[2017-02-25 16:50] LABS: BASO # 0.02 K/mm3 (0.0-2.0); BASO % 0.2 % (0.0-3.0); EOS # 0.1 (0.0-0.7); EOS % 0.7 % (1.5-5.0); GRAN # 7.33 (1.4-6.5); GRAN % 81.9 % (50.0-68.0); HEMATOCRIT 39.1 % (36.0-48.0); LYMPH # 1.1 (1.2-3.4); LYMPH % 12.6 % (22.0-35.0); MEAN CELL VOLUME 81.8 fL (80.0-105.0); MEAN CORPUSCULAR HEMOGLOBIN 26.8 pg (25.0-35.0); MEAN CORPUSCULAR HGB CONC 32.7 g/dl (31.0-37.0); MEAN PLATELET VOLUME 9.8 fl (7.0-11.0); MONO # 0.4 (0.1-0.6); MONO % 4.6 % (1.0-6.0); PLATELET COUNT 358 10^3/uL (120.0-450.0); RED CELL DISTRIBUTION WIDTH 13.9 % (11.5-14.5)
[2017-02-25 16:58] LABS: INR 1.04 (0.93-1.08); PARTIAL THROMBOPLASTIN TIME 27.7 Seconds (23.7-30.8)
[2017-02-25 17:02] LABS: ALB/GLOB RATIO 1.4 (1.1-1.8); BILIRUBIN,TOTAL 0.7 mg/dL (0.2-1.3); CALCIUM 10.1 mg/dL (8.4-10.5)
--- NOTE | 2017-02-25 17:03 | ED PDOC ---
Arrival/HPI - General Chief Complaint: Abdominal Pain Time Seen by Provider: 02/25/17 15:03 Historian: Patient - History of Present Illness Narrative History of Present Illness (Text): 02/25/17 16:59 Patient with past medical history of gastroparesis and Parkinson's disease, complains of 2 day history of constant mid abdominal pain associated with nausea , vomiting, burping, inability to tolerate anything by mouth with constipation 3 days. Patient saw her PMD prior to arrival and was sent to the ER for evaluation. Patient states that she normally uses the bathroom every other day. She adds that she has had prior colonoscopy and endoscopy 2 years ago which was within normal limits. Otherwise: (-) chest pain, (-) shortness of breath, (-) urinary symptoms, (-) diarrhea, (-) fever, (-) melena, (-) hematochezia. Has history of prior abdominal surgery - appendectomy, hysterectomy. PMD Fani Juarez Past Medical History - Provider Review Nursing Documentation Reviewed: Yes - Infectious Disease Hx of Infectious Diseases: None - Tetanus Immunization Tetanus Immunization: Unknown - Cardiac Hx Hypertension: Yes - Pulmonary Hx Chronic Obstructive Pulmonary Disease (COPD): Yes - Neurological Hx Neurological Disorder: Yes Hx Dizziness: Yes - HEENT Hx HEENT Disorder: Yes (TONSILLECTOMY) - Renal Hx Renal Disorder: No - Endocrine/Metabolic Hx Hypothyroidism: Yes - Hematological/Oncological Hx Blood Disorders: Yes Hx Anemia: Yes - Integumentary Hx Dermatological Disorder: No - Musculoskeletal/Rheumatological Hx Musculoskeletal Disorders: Yes Hx Falls: Yes - Gastrointestinal Hx Gastrointestinal Disorders: Yes (APPENDECTOMY,GASTRITIS,GASTROPARESIS, GASTROENTERITIS,) Hx Gastroesophageal Reflux: Yes - Genitourinary/Gynecological Hx Genitourinary Disorders: No (TUBAL LIGATION,HYSTERECTOMY) - Psychiatric Hx Psychophysiologic Disorder: Yes (RX DRUG ABUSE,ETOH ABUSE,SMOKED CIGARETTES QUIT 2 YRS AGO) Hx Anxiety: Yes Hx Depression: Yes Hx Substance Use: Yes (RX DRUG ABUSE) Other/Comment: ANEMIA - Surgical History Hx Appendectomy: Yes Hx Hysterectomy: Yes Other/Comment: tubal ligation - Anesthesia Hx Anesthesia: Yes Hx Anesthesia Reactions: No Hx Malignant Hyperthermia: No - Suicidal Assessment Feels Threatened In Home Enviroment: No Family/Social History - Physician Review Nursing Documentation Reviewed: Yes Family/Social History: No Known Family HX Smoking Status: Former Smoker Hx Alcohol Use: Yes Hx Substance Use: Yes (RX DRUG ABUSE) Hx Substance Use Treatment: No Allergies/Home Meds Allergies/Adverse Reactions: Allergies No Known Allergies Allergy (Verified 11/03/16 18:38) Home Medications: Home Meds Medication Instructions Recorded Confirmed Alendronate [Fosamax] 70 mg PO QWK 07/01/16 01/29/17 Atorvastatin [Lipitor] 20 mg PO DAILY 07/01/16 01/29/17 Fluticasone/Salmeterol 250/50 1 puff IH BID 07/01/16 01/29/17 [Advair Diskus 250/50] Lubiprostone [Amitiza] 24 mcg PO BID 07/01/16 01/29/17 Ergocalciferol [Drisdol 50,000 50,000 units PO DAILY 11/03/16 01/29/17 Intl Units Cap] Escitalopram [Lexapro] 10 mg PO DAILY 11/03/16 01/29/17 Lorazepam [Ativan] 0.5 mg PO Q8 11/03/16 01/29/17 Metoclopramide [Reglan] 5 mg PO QID 11/03/16 01/29/17 Multivit-Min/Iron/Folic/Lutein 1 tab PO DAILY 11/03/16 01/29/17 [Centrum Silver Women Tablet] Tiotropium [place] Inhaler 1 puff INH DAILY 11/03/16 01/29/17 [Spiriva Inhalation Handihaler Device] Zolpidem [Ambien] 5 mg PO HS PRN 11/03/16 01/29/17 traMADol [Ultram] 50 mg PO TID 11/03/16 01/29/17 Review of Systems - Review of Systems Constitutional: Normal. absent: Fatigue, Weight Change, Fevers Respiratory: Normal. absent: SOB, Cough, Sputum Cardiovascular: Normal. absent: Chest Pain, Palpitations, Edema Gastrointestinal: Normal, Abdominal Pain, Constipation (chronic), Appetite Changes. absent: Hematochezia, Hematemesis Musculoskeletal: Normal. absent: Arthralgias, Back Pain, Neck Pain Skin: Normal. absent: Rash, Pruritis, Skin Lesions Neurological: Normal. absent: Headache, Dizziness, Focal Weakness Physical Exam - Physical Exam Narrative Physical Exam (Text): 02/25/17 17:03 GENERAL APPEARANCE: Patient is awake, alert, oriented x 3, in mild painful distress. SKIN: Warm, dry; (-) cyanosis. EYES: (-) conjunctival pallor, (-) scleral icterus. ENMT: Mucous membranes dry. NECK: (-) tenderness, (-) stiffness, (-) lymphadenopathy. CHEST AND RESPIRATORY: (-) rales, (-) rhonchi, (-) wheezes; breath sounds equal bilaterally. HEART AND CARDIOVASCULAR: (-) irregularity; (-) murmur, (-) gallop. ABDOMEN AND GI: (-) distention. Bowel sounds active; (+) moderate diffuse abdominal tenderness, (-) guarding, (-) rebound, (-) palpable masses, (-) CVA tenderness. EXTREMITIES: (-) deformity, (-) edema, (+) distal pulses. NEURO AND PSYCH: Mental status as above; (-) focal findings. Vital Signs Temp Pulse Resp BP Pulse Ox 02/25/17 21:00 67 16 147/79 95 02/25/17 18:00 100 H 17 140/69 96 02/25/17 16:40 90 17 139/87 96 02/25/17 14:40 98.8 F 93 H 16 142/88 96 Medical Decision Making ED Course and Treatment: 02/25/17 17:04 51 yo F with past medical history of gastroparesis and Parkinson's disease, presents with 2 day history of abdominal pain, vomiting, belching and constipation for 3 days. Based on history and exam will rule out obstruction, consider dyspepsia. Plan: -- Labs -- IV fluids -- Urinalysis -- Pepcid / Reglan / Morphine -- Patient placed in ED observation -- CT AP w/ PO and IV contrast - Lab Interpretations I have reviewed the lab results: Yes (CBC / CMP wnl, UA shows +UTI) - RAD Interpretation Narrative RAD Interpretations (Text): 02/25/17 20:28 CT A/P with PO and IV contrast: FINDINGS: LOWER THORAX: No infiltrate seen in the lung bases. ABDOMEN: LIVER: Fatty infiltration of the liver. GALLBLADDER AND BILE DUCTS: Gallbladder is mildly dilated, and its wall enhances mildly. Findings are of uncertain clinical significance. No radioopaque gallstones are seen. No evidence of pericholecystic fluid or inflammation. No evidence of significant biliary ductal dilatation. PANCREAS: No CT evidence of acute pancreatitis. SPLEEN: No acute abnormality of the spleen identified. ADRENALS: No acute abnormality of the adrenal glands identified. KIDNEYS AND URETERS: Marked scarring involving the kidneys bilaterally. Tiny, nonobstructing left renal stone. Multiple small low density lesions in the left kidney, most likely representing cysts, but too small to characterize definitively on this exam. The largest of these measures 8 mm. No acute abnormality of the kidneys identified. No evidence of hydroureteronephrosis. STOMACH AND BOWEL: Mild, diffuse wall thickening of the stomach. The stomach is incompletely distended, and this finding could represent pseudo-wall thickening due to underdistention/incomplete distension versus gastritis. Colonic diverticulosis, with no evidence of acute diverticulitis. The colon is filled with fluid and air, and is normal to top normal in caliber. No transition point is seen. Findings could represent a mild ileus. Otherwise, no significant abnormality of the bowel is identified. No evidence of a significant bowel obstruction. APPENDIX: Normal appendix is not seen, and there is a reported history of previous appendectomy. PELVIS: BLADDER: No acute abnormality of the bladder identified. REPRODUCTIVE: Uterus is surgically absent. No evidence of large adnexal masses. ABDOMEN and PELVIS: INTRAPERITONEAL SPACE: No evidence of free intraperitoneal air or fluid. BONES/JOINTS: Mild anterolisthesis of L4 over L5, most likely degenerative in etiology. No acute fractures or other acute bony abnormality visualized. SOFT TISSUES: No acute abnormality of the visualized soft tissues is seen. VASCULATURE: Atherosclerotic calcification. No evidence of abdominal aortic aneurysm or dissection. LYMPH NODES: No evidence of diffuse lymphadenopathy. IMPRESSION: - Underdistention versus wall thickening/mild gastritis involving the stomach. Recommend clinical correlation. - Mild gallbladder dilatation and gallbladder wall enhancement. Findings are of uncertain clinical significance. No pericholecystic inflammation, pericholecystic fluid or radiopaque gallstones. Recommend clinical correlation, and followup right upper quadrant ultrasound as indicated. - Colonic findings which are most likely secondary to a mild ileus. - Otherwise, no evidence of significant acute process. - Marked bilateral renal scarring. - See above for remaining findings. Dictated and Authenticated by: Maru Nelson MD 02/25/2017 8:01 PM Eastern Time ([employer]) Radiology Orders: 02/25/17 15:42 ABD PELVIS PO & IV CONTRAST [CT] Stat - Medication Orders Current Medication Orders: Arformoterol Tartrate (Brovana) [id number] [facility] Budesonide (Pulmicort Respules) 0.[id number] [facility] Escitalopram Oxalate (Lexapro) [address] [facility] Potassium Chloride 20 meq/ (Dextrose/Sodium Chloride) 1,010 mls @ 100 mls/hr IV .Q10H6M MARIALUISA Last Admin: 02/25/17 23:52 Dose: 100 mls/hr Sodium Chloride (Sodium Chloride 0.9%) 1,000 mls @ 100 mls/hr IV .Q10H MARIALUISA Levothyroxine Sodium (Synthroid) 50 mcg PO ACB MARIALUISA Lorazepam (Ativan) 0.5 mg PO Q8 MARIALUISA PRN Reason: Protocol Last Admin: 02/25/17 23:53 Dose: 0.5 mg Morphine Sulfate (Morphine) 2 mg IVP Q3 PRN PRN Reason: Pain, moderate (4-7) Ondansetron HCl (Zofran Inj) 4 mg IVP Q6 PRN PRN Reason: Nausea/Vomiting Pantoprazole Sodium (Protonix Inj) [address] [facility] Pneumococcal Polyvalent Vaccine (Pneumovax 23 Vaccine) 0.5 ml IM .ONCE ONE Stop: 02/27/17 10:01 Zolpidem Tartrate (Ambien) 5 mg PO HS PRN; Protocol PRN Reason: Insomnia Last Admin: 02/25/17 23:53 Dose: 5 mg Discontinued Medications Famotidine (Pepcid) 20 mg IVP STAT STA Stop: 02/25/17 15:43 Last Admin: 02/25/17 16:16 Dose: 20 mg Sodium Chloride (Sodium Chloride 0.9%) 1,000 mls @ 1,000 mls/hr IV .Q1H STA Stop: 02/25/17 16:41 Last Admin: 02/25/17 16:16 Dose: 1,000 mls/hr Ceftriaxone Sodium (Rocephin 1 Gram Ivpb) 1 gm in 100 mls @ 200 mls/hr IVPB STAT STA PRN Reason: Protocol Stop: 02/25/17 18:49 Last Admin: 02/25/17 18:46 Dose: 200 mls/hr Iodixanol (Visipaque 320 Mg/Ml 100 Ml) Confirm Administered Dose 100 ml IV .STK- MED ONE Stop: 02/25/17 19:15 Iohexol (Omnipaque 240 (50 Ml)) Confirm Administered Dose 50 ml .ROUTE .STK-MED ONE Stop: 02/25/17 16:48 Metoclopramide HCl (Reglan) 10 mg IVP STAT STA Stop: 02/25/17 15:43 Last Admin: 02/25/17 16:16 Dose: 10 mg Morphine Sulfate (Morphine) 4 mg IVP STAT STA Stop: 02/25/17 15:43 Last Admin: 02/25/17 16:16 Dose: 4 mg Morphine Sulfate (Morphine) 4 mg IVP STAT STA Stop: 02/25/17 20:26 Last Admin: 02/25/17 20:44 Dose: 4 mg Ondansetron HCl (Zofran Inj) 4 mg IVP STAT STA Stop: 02/25/17 20:26 Last Admin: 02/25/17 20:44 Dose: 4 mg ED OBSERVATION Date of observation admission: 02/25/17 Time of observation admission: 15:45 - Observation admission statement Patient is being placed in observation because:: Based on exam patient is admitted to be dehydrated and to order CT to rule out obstruction. - Goals of Observation Goals of observation are:: To monitor the patient's signs, symptoms, and response to treatment. - Progress Note Progress Note: 02/25/17 08:20 Labs reviewed. UA shows (+) UTI, rocephin 1 g IV ordered. Patient is laying in bed comfortably in no acute distress. Reports improvement of symptoms. Tolerating po contrast. 02/25/17 20:36 On re-evaluation, patient returned from CT and is complaining of continued pain in the mid abdomen. On exam, patient is sitting in bed in mild painful distress. Abdomen remains soft with tenderness to the mid abdomen. CT results reviewed and d/w the patient. Case d/w Dr. Parker, agrees with plan for inpatient observation. Patient agrees with current plan of care, given the opportunity to ask questions. - PA / CORE PASTER / Resident Statement / has reviewed & agrees with the documentation as recorded. Disposition/Present on Arrival - Present on Arrival Any Indicators Present on Arrival: No History of DVT/PE: No History of Uncontrolled Diabetes: No Urinary Catheter: No History of Decub. Ulcer: No History Surgical Site Infection Following: None - Disposition Have Diagnosis and Disposition been Completed?: Yes Diagnosis: Gastritis, Gastroparesis, Intractable abdominal pain, Ileus Disposition: HOSPITALIZED Disposition Time: 20:35 (Pt placed for inpatient observation. ) Patient Plan: Observation Patient Problems: Current Active Problems Problem Status Onset Gastritis Acute Gastroparesis Acute Ileus Acute Intractable abdominal pain Acute Condition: STABLE
[2017-02-25 17:09] LABS: PH,URINE 6.5 (4.7-8.0); URINE BILIRUBIN NEGATIVE (NEGATIVE); URINE BLOOD NEGATIVE (NEGATIVE); URINE GLUCOSE (UA) NEGATIVE (NEGATIVE); URINE KETONE NEGATIVE (NEGATIVE); URINE LEUKOCYTE ESTERASE SMALL Leu/uL (NEGATIVE); URINE PROTEIN 30 mg/dL (<30 mg/dL); URINE UROBILINOGEN 0.2 E.U./dL (<1 E.U./dL)
[2017-02-25 17:12] LABS: URINE APPEARANCE CLOUDY (CLEAR); URINE COLOR YELLOW (YELLOW)
[2017-02-25 17:39] LABS: URINE BACTERIA MANY (NEG); URINE EPITHELIAL CELLS MANY /hpf (0-5); URINE RBC 0 - 2 /hpf (0-2)
[2017-02-25] MEDS ORDERED: cefTRIAXone 1 gm 1 GM/100 ML BAG IVPB STA (18:20)
[2017-02-25] MEDS ORDERED: Iodixanol 320 MG/ML 100 ML BOTTLE IV ONE (19:14)
--- NOTE | 2017-02-25 20:01 | CT ---
EXAM: CT Abdomen and Pelvis With Intravenous Contrast CLINICAL HISTORY: 51 years old, female; Pain; Abdominal pain; Prior surgery; Surgery type: Hysterectomy - appendectomy; Additional info: Mid abd pain, R/O obstruction, S/P hysterectomy TECHNIQUE: Axial computed tomography images of the abdomen and pelvis with intravenous contrast. This CT exam was performed using one or more of the following dose reduction techniques: automated exposure control, adjustment of the mA and/or kV according to patient size, and/or use of iterative reconstruction technique. Coronal and sagittal reformatted images were created and reviewed. CONTRAST: 94 mL of visipaque administered intravenously. EXAM DATE/TIME: 02/25/2017 3:42 PM COMPARISON: Prior CT abdomen and pelvis of 01/29/2017 FINDINGS: LOWER THORAX: No infiltrate seen in the lung bases. ABDOMEN: LIVER: Fatty infiltration of the liver. GALLBLADDER AND BILE DUCTS: Gallbladder is mildly dilated, and its wall enhances mildly. Findings are of uncertain clinical significance. No radioopaque gallstones are seen. No evidence of pericholecystic fluid or inflammation. No evidence of significant biliary ductal dilatation. PANCREAS: No CT evidence of acute pancreatitis. SPLEEN: No acute abnormality of the spleen identified. ADRENALS: No acute abnormality of the adrenal glands identified. KIDNEYS AND URETERS: Marked scarring involving the kidneys bilaterally. Tiny, nonobstructing left renal stone. Multiple small low density lesions in the left kidney, most likely representing cysts, but too small to characterize definitively on this exam. The largest of these measures 8 mm. No acute abnormality of the kidneys identified. No evidence of hydroureteronephrosis. STOMACH AND BOWEL: Mild, diffuse wall thickening of the stomach. The stomach is incompletely distended, and this finding could represent pseudo-wall thickening due to underdistention/incomplete distension versus gastritis. Colonic diverticulosis, with no evidence of acute diverticulitis. The colon is filled with fluid and air, and is normal to top normal in caliber. No transition point is seen. Findings could represent a mild ileus. Otherwise, no significant abnormality of the bowel is identified. No evidence of a significant bowel obstruction. APPENDIX: Normal appendix is not seen, and there is a reported history of previous appendectomy. PELVIS: BLADDER: No acute abnormality of the bladder identified. REPRODUCTIVE: Uterus is surgically absent. No evidence of large adnexal masses. ABDOMEN and PELVIS: INTRAPERITONEAL SPACE: No evidence of free intraperitoneal air or fluid. BONES/JOINTS: Mild anterolisthesis of L4 over L5, most likely degenerative in etiology. No acute fractures or other acute bony abnormality visualized. SOFT TISSUES: No acute abnormality of the visualized soft tissues is seen. VASCULATURE: Atherosclerotic calcification. No evidence of abdominal aortic aneurysm or dissection. LYMPH NODES: No evidence of diffuse lymphadenopathy. IMPRESSION: - Underdistention versus wall thickening/mild gastritis involving the stomach. Recommend clinical correlation. - Mild gallbladder dilatation and gallbladder wall enhancement. Findings are of uncertain clinical significance. No pericholecystic inflammation, pericholecystic fluid or radiopaque gallstones. Recommend clinical correlation, and followup right upper quadrant ultrasound as indicated. - Colonic findings which are most likely secondary to a mild ileus. - Otherwise, no evidence of significant acute process. - Marked bilateral renal scarring. - See above for remaining findings.
--- NOTE | 2017-02-25 22:03 | CP.PCM.HP ---
History of Present Illness - History of Present Illness History of Present Illness: 51 F with h/o gastroperesis, chronic constipation, Reynods disease, chronic muscle spasms, parkinson's disease, copd was sent in from PMD's office for evaluation of epigastric pain. Pain started yesterday afternoon, accompanied by nausea and vomiting, stabbing type, denied diarrhea, denied sick contacts, denied eating some bad food, denied fever or chills. In ER the labs had been to her baseline, CT abd/pelvis with contrast showed distended gb, slight dilated small and large bowel loops, with no point of obstruction. PMH as above PSH Appendicectomy, hysterctomy, tonsillectomy Allergies NKDA Meds reviewed for gastroperesis, muscle spasm, htn pill form Reynods, Family history not contributory Social Lives with family, stopped smoking 2.5 yrs back prior smoked 1/2 PPD for many yrs, denies alcohol/ illicit drugs Present on Admission - Present on Admission Any Indicators Present on Admission: No Review of Systems - Review of Systems All systems: reviewed and no additional remarkable complaints except (HPI) Past Patient History - Infectious Disease Hx of Infectious Diseases: None - Tetanus Immunizations Tetanus Immunization: Unknown - Past Social History Smoking Status: Former Smoker Alcohol: None Drugs: Denies Home Situation {Lives}: With Family - CARDIAC Hx Hypertension: Yes - PULMONARY Hx Chronic Obstructive Pulmonary Disease (COPD): Yes - NEUROLOGICAL Hx Neurological Disorder: Yes Hx Dizziness: Yes - HEENT Hx HEENT Problems: Yes (TONSILLECTOMY) - RENAL Hx Chronic Kidney Disease: No - ENDOCRINE/METABOLIC Hx Hypothyroidism: Yes - HEMATOLOGICAL/ONCOLOGICAL Hx Blood Disorders: Yes Hx Anemia: Yes - INTEGUMENTARY Hx Dermatological Problems: No - MUSCULOSKELETAL/RHEUMATOLOGICAL Hx Musculoskeletal Disorders: Yes Hx Falls: Yes - GASTROINTESTINAL Hx Gastrointestinal Disorders: Yes (APPENDECTOMY,GASTRITIS,GASTROPARESIS, GASTROENTERITIS,) Hx Gastroesophageal Reflux: Yes - GENITOURINARY/GYNECOLOGICAL Hx Genitourinary Disorders: No (TUBAL LIGATION,HYSTERECTOMY) - PSYCHIATRIC Hx Psychophysiologic Disorder: Yes (RX DRUG ABUSE,ETOH ABUSE,SMOKED CIGARETTES QUIT 2 YRS AGO) Hx Anxiety: Yes Hx Depression: Yes Hx Substance Use: Yes (RX DRUG ABUSE) Other/Comment: ANEMIA - SURGICAL HISTORY Hx Appendectomy: Yes Hx Hysterectomy: Yes Other/Comment: tubal ligation - ANESTHESIA Hx Anesthesia: Yes Hx Anesthesia Reactions: No Hx Malignant Hyperthermia: No Meds Allergies/Adverse Reactions: Allergies Allergy/AdvReac Type Severity Reaction Status Date / Time No Known Allergies Allergy Verified 11/03/16 18:38 Physical Exam - Additional Findings Additional findings: * HEENT LAYLA * Neck Supple * Chest Clear * CVS Regular, no gallop or rub * PA soft, mild tenderness in RUQ/Epigastric area, bs normal * Ext no edema, turgor on the lower side suggesting mild dehydration, redness in tips of fingers * CLOUD [employer]OMATION TESTER awake oriented x3, no fnd, rest tremor in both upper ext Results - Vital Signs Recent Vital Signs: Last Vital Signs Temp 98.8 F 02/25/17 14:40 Pulse 67 02/25/17 21:00 Resp 16 02/25/17 21:00 BP 147/79 02/25/17 21:00 Pulse Ox 95 02/25/17 21:00 - Labs Result Diagrams: 02/25/17 16:00 02/25/17 16:00 Labs: Laboratory Results - last 24 hr 02/25/17 02/25/17 02/25/17 16:00 16:00 16:00 WBC 9.0 RBC 4.78 Hgb 12.8 Hct 39.1 MCV 81.8 MCH 26.8 MCHC 32.7 RDW 13.9 Plt Count 358 MPV 9.8 Gran % 81.9 H Lymph % (Auto) 12.6 L [place] % (Auto) 4.6 Eos % (Auto) 0.7 L Baso % (Auto) 0.2 Gran # 7.33 H Lymph # 1.1 L [place] # 0.4 Eos # 0.1 Baso # 0.02 PT 11.2 INR 1.04 APTT 27.7 Sodium 138 Potassium 4.0 Chloride 99 Carbon Dioxide 27 Anion Gap 16 BUN 20 Creatinine 1.2 Est GFR ( Amer) 57 Est GFR (Non-Af Amer) 47 Random Glucose 91 Calcium 10.1 Total Bilirubin 0.7 AST 36 ALT 30 Alkaline Phosphatase 59 Total Protein 8.0 Albumin 4.7 Globulin 3.3 Albumin/Globulin Ratio 1.4 Lipase 26 Urine Color Urine Appearance Urine pH Ur Specific [place] Urine Protein Urine Glucose (UA) Urine Ketones Urine Blood Urine Nitrate Urine Bilirubin Urine Urobilinogen Ur Leukocyte Esterase Urine RBC Urine WBC Ur Epithelial Cells Urine Bacteria 02/25/17 17:02 WBC RBC Hgb Hct MCV MCH MCHC RDW Plt Count MPV Gran % Lymph % (Auto) [place] % (Auto) Eos % (Auto) Baso % (Auto) Gran # Lymph # [place] # Eos # Baso # PT INR APTT Sodium Potassium Chloride Carbon Dioxide Anion Gap BUN Creatinine Est GFR ( Amer) Est GFR (Non-Af Amer) Random Glucose Calcium Total Bilirubin AST ALT Alkaline Phosphatase Total Protein Albumin Globulin Albumin/Globulin Ratio Lipase Urine Color Yellow Urine Appearance Cloudy Urine pH 6.5 Ur Specific [place] 1.010 Urine Protein 30 H Urine Glucose (UA) Negative Urine Ketones Negative Urine Blood Negative Urine Nitrate Positive H Urine Bilirubin Negative Urine Urobilinogen 0.2 Ur Leukocyte Esterase Small H Urine RBC 0 - 2 Urine WBC 10 - 15 Ur Epithelial Cells Many Urine Bacteria Many Assessment & Plan - Assessment and Plan (Free Text) Assessment: * Epigastric/RUQ pain/tenderness DD of cholectystis more likely, gastritis, peptic ulcer disease, unlikely entritis, colitis * H/o Parkinson's disease * H/o Reynods disease * H/o depression/anxiety * Mild clinical dehydration * Ex smoking, copd Plan: * NPO except meds * Confirm home meds * GB usg, HIDA * Surgery consult * Gi prophylaxis * IVF * See orders for detail.
--- NOTE | 2017-02-25 23:23 | CP.PCM.CON ---
Addendum entered and electronically signed by Effie Leo DO 02/27/17 17:34: Pt started on CLD, advance as tolerated No further surgical intervention needed at this time d/w Dr. Villa Leo, PGY-2 Original Note: <Eagle Pastrana - Last Filed: 02/25/17 23:16> History of Present Illness - History of Present Illness History of Present Illness: General Surgery Consult Note for Dr. Driver CC: Nausea X 1 day This is a 51 F with PMH of COPD, hypertension, hypothyroidism, restless leg syndrome, gastroparesis, anxiety, and osteoporosis who is presenting with a 1 day history of nausea. She reports that yesterday morning she ate cereal for breakfast she had abdominal pain and subsequently vomitted the cereal, the emesis was described as appearing like her food it was non bloody non bilious. Her last BM was 3 days ago it was non bloody normal caliber stool. She reports she normally has a BM every other day, last time she passed gas was yesterday. She denies any fevers or chills at home, she denies chest pain or SOB. The patient is an unreliable historian. She reported no medical problems to me however upon questioning her about her medication list she provided me with more details. CT abd with oral contrast done in the ED showed Dilated loops of bowel with liquid and gas throughout without a transition point described as being suggestive of an ileus. PMHx: COPD, HTN, Restless leg syndrome, Gastroparesis, Anxiety, Osteoporosis PSHx: Hysterectomy 2015, Appendectomy, Tonsillectomy Family Hx: CAD, DM on both maternal and paternal first degree relatives. Grandfather - Mouth/Throat Cancer Social Hx: lives with bobby. Quit Tob 2 years ago, former 1/2 ppd. Occasional ETOH, last use past weekend. Denies any Drugs Review of Systems - Constitutional Constitutional: Anorexia, Chills - EENT Eyes: absent: Blurred Vision, Change in Vision Ears: absent: Ear Discharge, Ear Pain Nose/Mouth/Throat: absent: Nasal Discharge, Nasal Trauma - Cardiovascular Cardiovascular: absent: Chest Pain, Dyspnea - Respiratory Respiratory: absent: Dyspnea, Hemoptysis - Gastrointestinal Gastrointestinal: Abdominal Pain, Nausea, Vomiting. absent: Diarrhea, Hematochezia, Melena - Musculoskeletal Musculoskeletal: Back Pain - Integumentary Integumentary: absent: Lesions, New Lesions - Psychiatric Psychiatric: Anxiety Past Patient History - Infectious Disease Hx of Infectious Diseases: None - Tetanus Immunizations Tetanus Immunization: Unknown - Past Social History Smoking Status: Former Smoker Alcohol: None Drugs: Denies Home Situation {Lives}: With Family - CARDIAC Hx Hypertension: Yes - PULMONARY Hx Chronic Obstructive Pulmonary Disease (COPD): Yes - NEUROLOGICAL Hx Neurological Disorder: Yes Hx Dizziness: Yes - HEENT Hx HEENT Problems: Yes (TONSILLECTOMY) - RENAL Hx Chronic Kidney Disease: No - ENDOCRINE/METABOLIC Hx Endocrine Disorders: Yes Hx Hypothyroidism: Yes - HEMATOLOGICAL/ONCOLOGICAL Hx Blood Disorders: Yes Hx Anemia: Yes - INTEGUMENTARY Hx Dermatological Problems: No - MUSCULOSKELETAL/RHEUMATOLOGICAL Hx Musculoskeletal Disorders: Yes Hx Falls: Yes - GASTROINTESTINAL Hx Gastrointestinal Disorders: Yes (APPENDECTOMY,GASTRITIS,GASTROPARESIS, GASTROENTERITIS,) Hx Gastroesophageal Reflux: Yes - GENITOURINARY/GYNECOLOGICAL Hx Genitourinary Disorders: No (TUBAL LIGATION,HYSTERECTOMY) - PSYCHIATRIC Hx Psychophysiologic Disorder: Yes (RX DRUG ABUSE,ETOH ABUSE,SMOKED CIGARETTES QUIT 2 YRS AGO) Hx Anxiety: Yes Hx Depression: Yes Other/Comment: ANEMIA - SURGICAL HISTORY Hx Appendectomy: Yes Hx Hysterectomy: Yes Other/Comment: tubal ligation - ANESTHESIA Hx Anesthesia: Yes Hx Anesthesia Reactions: No Hx Malignant Hyperthermia: No Meds Allergies/Adverse Reactions: Allergies Allergy/AdvReac Type Severity Reaction Status Date / Time No Known Allergies Allergy Verified 11/03/16 18:38 - Medications Medications: Current Medications Arformoterol Tartrate (Brovana) 15 mcg IH [id number] [facility] Budesonide (Pulmicort Respules) 0.5 mg IH [id number] [facility] Escitalopram Oxalate (Lexapro) 10 mg PO DAILY [facility] Potassium Chloride 20 meq/ (Dextrose/Sodium Chloride) 1,010 mls @ 100 mls/hr IV .Q10H6M [facility] Levothyroxine Sodium (Synthroid) 50 mcg PO ACB [facility] Lorazepam (Ativan) 0.5 mg PO Q8 [facility] PRN Reason: Protocol Morphine Sulfate (Morphine) 2 mg IVP Q3 PRN PRN Reason: Pain, moderate (4-7) Ondansetron HCl (Zofran Inj) 4 mg IVP Q6 PRN PRN Reason: Nausea/Vomiting Pantoprazole Sodium (Protonix Inj) 40 mg IVP DAILY [facility] Zolpidem Tartrate (Ambien) 5 mg PO HS PRN; Protocol PRN Reason: Insomnia Physical Exam - Constitutional Appears: Non-toxic, No Acute Distress - Head Exam Head Exam: ATRAUMATIC, NORMOCEPHALIC - Eye Exam Eye Exam: EOMI - ENT Exam ENT Exam: Mucous Membranes Moist - Respiratory Exam Respiratory Exam: NORMAL BREATHING PATTERN - Cardiovascular Exam Cardiovascular Exam: REGULAR RHYTHM - GI/Abdominal Exam GI & Abdominal Exam: Soft. absent: Distended, Firm, Guarding, Hernia, Rebound, Rigid Additional comments: Nontender to palpation in all 4 quadrants - Extremities Exam Extremities exam: Positive for: normal inspection - Neurological Exam Neurological exam: Alert - Psychiatric Exam Psychiatric exam: Flat Affect - Skin Skin Exam: Dry, Intact Results - Vital Signs Recent Vital Signs: Last Vital Signs Temp 98.8 F 02/25/17 14:40 Pulse 67 02/25/17 21:00 Resp 16 02/25/17 21:00 BP 147/79 02/25/17 21:00 Pulse Ox 95 02/25/17 21:00 - Labs Result Diagrams: 02/25/17 16:00 02/25/17 16:00 Labs: Laboratory Results - last 24 hr 02/25/17 02/25/17 02/25/17 16:00 16:00 16:00 WBC 9.0 RBC 4.78 Hgb 12.8 Hct 39.1 MCV 81.8 MCH 26.8 MCHC 32.7 RDW 13.9 Plt Count 358 MPV 9.8 Gran % 81.9 H Lymph % (Auto) 12.6 L [place] % (Auto) 4.6 Eos % (Auto) 0.7 L Baso % (Auto) 0.2 Gran # 7.33 H Lymph # 1.1 L [place] # 0.4 Eos # 0.1 Baso # 0.02 PT 11.2 INR 1.04 APTT 27.7 Sodium 138 Potassium 4.0 Chloride 99 Carbon Dioxide 27 Anion Gap 16 BUN 20 Creatinine 1.2 Est GFR ( Amer) 57 Est GFR (Non-Af Amer) 47 Random Glucose 91 Calcium 10.1 Total Bilirubin 0.7 AST 36 ALT 30 Alkaline Phosphatase 59 Total Protein 8.0 Albumin 4.7 Globulin 3.3 Albumin/Globulin Ratio 1.4 Lipase 26 Urine Color Urine Appearance Urine pH Ur Specific [place] Urine Protein Urine Glucose (UA) Urine Ketones Urine Blood Urine Nitrate Urine Bilirubin Urine Urobilinogen Ur Leukocyte Esterase Urine RBC Urine WBC Ur Epithelial Cells Urine Bacteria 02/25/17 17:02 WBC RBC Hgb Hct MCV MCH MCHC RDW Plt Count MPV Gran % Lymph % (Auto) [place] % (Auto) Eos % (Auto) Baso % (Auto) Gran # Lymph # [place] # Eos # Baso # PT INR APTT Sodium Potassium Chloride Carbon Dioxide Anion Gap BUN Creatinine Est GFR ( Amer) Est GFR (Non-Af Amer) Random Glucose Calcium Total Bilirubin AST ALT Alkaline Phosphatase Total Protein Albumin Globulin Albumin/Globulin Ratio Lipase Urine Color Yellow Urine Appearance Cloudy Urine pH 6.5 Ur Specific [place] 1.010 Urine Protein 30 H Urine Glucose (UA) Negative Urine Ketones Negative Urine Blood Negative Urine Nitrate Positive H Urine Bilirubin Negative Urine Urobilinogen 0.2 Ur Leukocyte Esterase Small H Urine RBC 0 - 2 Urine WBC 10 - 15 Ur Epithelial Cells Many Urine Bacteria Many - Imaging and Cardiology CT scan - abdomen Status: Image reviewed by me, Report reviewed by me Assessment & Plan - Assessment and Plan (Free Text) Assessment: This is a 51F with astroperesis, chronic constipation, Reynods disease, chronic muscle spasms, parkinson's disease, copd who is presenting with nausea and vomiting and abdominal pain with a CT showing gas and fluid filled bowel suggestive of ilues. Vital Signs Stable Labs WNL Recommend NPO overnight IVF Recommend hold opiates as it could be the cause and/or exacerbate existing ileus. Continue medical management per primary team Will re-evaluate in the morning. Will discuss with Dr. Villa Pastrana PGY-1 <Nilesh Driver - Last Filed: 02/28/17 22:41> Meds - Medications Medications: Current Medications Arformoterol Tartrate (Brovana) 15 mcg IH [id number] [facility] Last Admin: 02/28/17 21:00 Dose: 15 mcg Budesonide (Pulmicort Respules) 0.5 mg IH [id number] [facility] Last Admin: 02/28/17 21:00 Dose: 0.5 mg Carbidopa/Levodopa (Sinemet) 1 tab PO TID [facility] Last Admin: 02/28/17 17:38 Dose: 1 tab Escitalopram Oxalate (Lexapro) 10 mg PO DAILY [facility] Last Admin: 02/28/17 09:44 Dose: 10 mg Ceftriaxone Sodium (Rocephin 1 Gram Ivpb) 1 gm in 100 mls @ 100 mls/hr IVPB DAILY [facility] PRN Reason: Protocol Last Admin: 02/28/17 09:43 Dose: 100 mls/hr Sodium Chloride (Sodium Chloride 0.9%) 1,000 mls @ 50 mls/hr IV .Q20H [facility] Last Admin: 02/28/17 14:07 Dose: 50 mls/hr Ketorolac Tromethamine (Toradol) 15 mg IVP Q6 PRN PRN Reason: PAIN MOD [4-7] Last Admin: 02/28/17 22:34 Dose: 15 mg Levothyroxine Sodium (Synthroid) 50 mcg PO ACB [facility] Last Admin: 02/28/17 08:00 Dose: 50 mcg Lorazepam (Ativan) 0.5 mg PO Q8 [place] PRN Reason: Protocol Last Admin: 02/28/17 21:49 Dose: 0.5 mg Metoclopramide HCl (Reglan) 10 mg IVPB Q12 [facility] Last Admin: 02/28/17 21:48 Dose: 10 mg Ondansetron HCl (Zofran Inj) 4 mg IVP Q6H PRN PRN Reason: Nausea/Vomiting Last Admin: 02/28/17 17:40 Dose: 4 mg Pantoprazole Sodium (Protonix Inj) 40 mg IVP DAILY [facility] Last Admin: 02/28/17 09:42 Dose: 40 mg Zolpidem Tartrate (Ambien) 5 mg PO HS PRN; Protocol PRN Reason: Insomnia Last Admin: 02/27/17 23:08 Dose: 5 mg Results - Vital Signs Recent Vital Signs: Last Vital Signs Temp 98.4 F 02/28/17 17:00 Pulse 71 02/28/17 17:00 Resp 16 02/28/17 17:00 BP 134/92 H 02/28/17 19:00 Pulse Ox 97 02/28/17 17:00 - Labs Result Diagrams: 02/28/17 11:51 02/28/17 12:45 Labs: Laboratory Results - last 24 hr 02/28/17 02/28/17 02/28/17 11:51 11:51 11:51 WBC 8.0 RBC 4.94 Hgb 13.5 Hct 40.7 MCV 82.4 MCH 27.3 MCHC 33.2 RDW 14.0 Plt Count 353 MPV 9.6 Gran % 72.1 H Lymph % (Auto) 20.1 L [place] % (Auto) 5.6 Eos % (Auto) 1.7 Baso % (Auto) 0.5 Gran # 5.78 Lymph # 1.6 [place] # 0.5 Eos # 0.1 Baso # 0.04 Sodium Potassium Chloride Carbon Dioxide Anion Gap BUN Creatinine Est GFR ( Amer) Est GFR (Non-Af Amer) Random Glucose Lactic Acid 1.7 Calcium Total Bilirubin AST ALT Alkaline Phosphatase C-React Prot High Sens 3.16 H Total Protein Albumin Globulin Albumin/Globulin Ratio 02/28/17 12:45 WBC RBC Hgb Hct MCV MCH MCHC RDW Plt Count MPV Gran % Lymph % (Auto) [place] % (Auto) Eos % (Auto) Baso % (Auto) Gran # Lymph # [place] # Eos # Baso # Sodium 140 Potassium 4.6 Chloride 102 Carbon Dioxide 26 Anion Gap 17 BUN 7 Creatinine 0.9 Est GFR ( Amer) > 60 Est GFR (Non-Af Amer) > 60 Random Glucose 101 Lactic Acid Calcium 10.3 Total Bilirubin 0.5 AST 44 H ALT 14 Alkaline Phosphatase 52 C-React Prot High Sens Total Protein 8.9 H Albumin 5.0 H Globulin 4.0 Albumin/Globulin Ratio 1.3 Attending/Attestation - Attestation I have personally seen and examined this patient.: Yes I have fully participated in the care of the patient.: Yes I have reviewed all pertinent clinical information: Yes Notes (Text): 02/28/17 22:40 Pt was seen and examined at bedside on 02/26/2017 Agree with above note and assessment Pt with ileus, constipation No need for surgical intervention at present. Plan d.w pt in detail Risk and benefit explained in detail
[2017-02-25] MEDS ORDERED: Sodium Chloride 0.9% 1,000 ML IV SCH (23:30)
[2017-02-25] MEDS: Potassium Chloride 20 MEQ in Dextrose 5%/0.45% NS 1,000 ML IV SCH (23:52)
[2017-02-26] MEDS: Morphine 2 mg/ml ISec IVP PRN ×3 (01:41→09:44)
[2017-02-26 06:56] LABS: ADD MANUAL DIFF? NO
[2017-02-26 07:10] LABS: BASO # 0.03 K/mm3 (0.0-2.0); BASO % 0.4 % (0.0-3.0); EOS # 0.2 (0.0-0.7); EOS % 3.1 % (1.5-5.0); GRAN # 3.49 (1.4-6.5); GRAN % 52.3 % (50.0-68.0); LYMPH # 2.3 (1.2-3.4); LYMPH % 33.7 % (22.0-35.0); MEAN CELL VOLUME 82.4 fL (80.0-105.0); MEAN CORPUSCULAR HEMOGLOBIN 26.1 pg (25.0-35.0); MEAN CORPUSCULAR HGB CONC 31.6 g/dl (31.0-37.0); MONO # 0.7 (0.1-0.6); MONO % 10.5 % (1.0-6.0); PLATELET COUNT 323 10^3/uL (120.0-450.0); RED CELL DISTRIBUTION WIDTH 14.1 % (11.5-14.5); WHITE BLOOD COUNT 6.7 10^3/ul (4.5-11.0)
[2017-02-26 07:23] LABS: ALB/GLOB RATIO 1.4 (1.1-1.8); ALKALINE PHOSPHATASE 51 U/L (38-133); ALT/SGPT 25 U/L (7-56); AST/SGOT 27 U/L (15-39); BILIRUBIN,TOTAL 0.6 mg/dL (0.2-1.3); BLOOD UREA NITROGEN 14 mg/dL (7-21); CALCIUM 9.2 mg/dL (8.4-10.5); CARBON DIOXIDE 26 mmol/L (21-33); CHLORIDE 104 mmol/L (95-110); GFR AFRICAN-AMERICAN > 60; GLUCOSE,RANDOM 87 mg/dL (70-110); POTASSIUM 4.2 mmol/L (3.6-5.0); SODIUM 140 mmol/L (132-148); TOTAL PROTEIN 7.5 g/dL (5.8-8.3)
[2017-02-26] MEDS: Budesonide 0.5 mg/2 ml Inhal Susp UD IH SCH ×2 (09:15→20:25)
[2017-02-26] MEDS: Arformoterol 15 mcg/2 ml Inh Sol IH SCH ×2 (09:15→20:25)
[2017-02-26] MEDS: Levothyroxine 50 MCG TAB PO SCH (09:46)
[2017-02-26] MEDS ORDERED: Fluticasone-Salmeterol 250-50mcg Diskus IH SCH (10:00)
--- NOTE | 2017-02-26 10:45 | CON ---
DATE: 02/26/2017 I examined the patient this morning. She is a 51-year-old white female, a patient of from the [facility]. The patient has a past medical history of gastroparesis verified by gastric emptying study. She also has history of Parkinson's disease. The patient was seen in PMD office complaining about nausea and vomiting, a day and a half prior to admission. The patient denied intake of tainted food. Also, she denied hematemesis or rectal bleeding. The patient also denied contact with patients with a viral illness. No one apparently has a gastroenteritis type of illness at home. PHYSICAL EXAMINATION: VITAL SIGNS: I reviewed this patient's vital signs. HEENT: Noncontributory. LUNGS: Clear to auscultation. HEART: Regular rhythm. ABDOMEN: Significant for being mildly protuberant. She has irregular bowel sounds. Palpation of the periumbilical area as well as over the distribution of the colon revealed some mild abdominal discomfort. Report of the CT scan as well as review of the images significant for hepatic steatosis, thick walled gallbladder, marked scarring around the kidneys. As far as the stomach and bowel is concerned, she had thickening of the wall of the stomach, colonic diverticulosis and there is some fluid, air-fluid levels in the colon, which is suggestive of a mild ileus. I reviewed this patient's laboratory data. CBC is noncontributory as well as the coagulation. Chemistry is also noncontributory. OVERALL ASSESSMENT: This is a 51-year-old white female admitted with complaints of abdominal distention with some nausea and vomiting, probably secondary to a gastroenteritis. The patient indicates history of gastroparesis. She is currently on domperidone , was treated by Dr. Reyes from the [facility]. Also indicated a history of Parkinson's disease. This is being treated by her neurologist with [facility]. As far as current clinical status is concerned, I am not sure of the reason for antibiotics, but I think IV fluids plus intravenous PPI is reasonable at this point in time and p.r.n. analgesics low dose. If the patient can handle it, possibly ice chips. I see that Dr. Redd ordered biliary scan for possible gallbladder disease. I think this is reasonable. Samson Moore DO, PhD cc: [id number] TT: 02/26/2017 10:45:07 Confirmation # [id number] Dictation # [id number] en MTDD
--- NOTE | 2017-02-26 10:59 | US ---
HISTORY: RUQ pain COMPARISON: None. TECHNIQUE: Sonographic evaluation of the right upper quadrant of the abdomen. FINDINGS: LIVER: Measures cm in length. Normal echogenicity of the liver parenchyma. No mass. No intrahepatic bile duct dilatation. GALLBLADDER: Unremarkable. No gallstones. COMMON BILE DUCT: Measures mm. No stones. No dilatation. PANCREAS: Unremarkable as visualized. No mass. No ductal dilatation. RIGHT KIDNEY: Measures cm in length. Normal echogenicity. No calculus, mass, or hydronephrosis. AORTA: No aneurysmal dilatation. IVC: Unremarkable. OTHER FINDINGS: None . IMPRESSION: Normal exam
--- NOTE | 2017-02-26 11:48 | NM ---
PROCEDURE: Nuclear Medicine Hepatobiliary Scan HISTORY: RUQ pain, distended gb COMPARISON: 10/29/2016 abdominal ultrasound. February 25, 2017. CT abdomen and pelvis. TECHNIQUE: 5.2 mCi of technetium 99m Mebrofenin was administered intravenously. Planar images of the abdomen were obtained at 5 min intervals to 60 mins. Delayed images were also obtained. FINDINGS: LIVER: Timely and homogenous uptake. COMMON BILE DUCT: identified at 15 mins. GALLBLADDER: identified at 15 mins. SMALL BOWEL: Identified at 30 mins. IMPRESSION: Normal Hepatobiliary Scan. The cystic duct is patent.
--- NOTE | 2017-02-26 13:07 | CP.PCM.PN ---
<Ahmet Puentes - Last Filed: 02/26/17 13:08> Subjective - Date & Time of Evaluation Date of Evaluation: 02/26/17 Time of Evaluation: 13:00 - Subjective Subjective: Medicine progress note. Attending: Dr. Singh. Pt seen and examined at bedside. No acute distress. Admitted overnight. No fevers, chills, syncope, chest pain, sob. HIDA/US neg, will advance diet. Objective - Vital Signs/Intake and Output Vital Signs (last 24 hours): Temp Pulse Resp BP Pulse Ox 98 F 67 18 110/82 95 02/26/17 08:10 02/26/17 08:10 02/26/17 08:10 02/26/17 08:10 02/26/17 08:10 Intake and Output: 02/26/17 02/26/17 06:59 18:59 Intake Total 0 Balance 0 - Medications Medications: Current Medications Arformoterol Tartrate (Brovana) 15 mcg IH [id number] [facility] Last Admin: 02/26/17 09:15 Dose: Not Given Budesonide (Pulmicort Respules) 0.5 mg IH [id number] [facility] Last Admin: 02/26/17 09:15 Dose: Not Given Escitalopram Oxalate (Lexapro) 10 mg PO DAILY [facility] Last Admin: 02/26/17 09:44 Dose: 10 mg Potassium Chloride 20 meq/ (Dextrose/Sodium Chloride) 1,010 mls @ 100 mls/hr IV .Q10H6M [facility] Last Admin: 02/25/17 23:52 Dose: 100 mls/hr Sodium Chloride (Sodium Chloride 0.9%) 1,000 mls @ 100 mls/hr IV .Q10H [facility] Levothyroxine Sodium (Synthroid) 50 mcg PO ACB [facility] Last Admin: 02/26/17 09:46 Dose: 50 mcg Lorazepam (Ativan) 0.5 mg PO Q8 [facility] PRN Reason: Protocol Last Admin: 02/25/17 23:53 Dose: 0.5 mg Morphine Sulfate (Morphine) 2 mg IVP Q3 PRN PRN Reason: Pain, moderate (4-7) Last Admin: 02/26/17 09:44 Dose: 2 mg Ondansetron HCl (Zofran Inj) 4 mg IVP Q6 PRN PRN Reason: Nausea/Vomiting Last Admin: 02/26/17 09:46 Dose: 4 mg Pantoprazole Sodium (Protonix Inj) 40 mg IVP DAILY [facility] Last Admin: 02/26/17 09:45 Dose: 40 mg Pneumococcal Polyvalent Vaccine (Pneumovax 23 Vaccine) 0.5 ml IM .ONCE ONE Stop: 02/27/17 10:01 Zolpidem Tartrate (Ambien) 5 mg PO HS PRN; Protocol PRN Reason: Insomnia Last Admin: 02/25/17 23:53 Dose: 5 mg - Labs Labs: 02/26/17 06:30 02/26/17 06:30 PT 11.2 Seconds (9.9-11.8) 02/25/17 16:00 INR 1.04 (0.93-1.08) 02/25/17 16:00 APTT 27.7 Seconds (23.7-30.8) 02/25/17 16:00 - Constitutional Appears: Non-toxic, No Acute Distress - Head Exam Head Exam: ATRAUMATIC, NORMAL INSPECTION, NORMOCEPHALIC - Eye Exam Eye Exam: EOMI - ENT Exam ENT Exam: Mucous Membranes Moist - Neck Exam Neck Exam: Full ROM, Normal Inspection - Respiratory Exam Respiratory Exam: NORMAL BREATHING PATTERN. absent: Respiratory Distress - Cardiovascular Exam Cardiovascular Exam: +S1, +S2 - GI/Abdominal Exam GI & Abdominal Exam: Tenderness, Normal Bowel Sounds. absent: Organomegaly Additional comments: Tenderness epigastric - Extremities Exam Extremities Exam: Full ROM, Normal Inspection - Neurological Exam Neurological Exam: Alert, Awake, Oriented x3 - Psychiatric Exam Psychiatric exam: Normal Affect, Normal Mood - Skin Skin Exam: Dry, Intact, Normal Color, Warm Assessment and Plan - Assessment and Plan (Free Text) Assessment: This is a 51 yo female with pmh of gastroparesis, chronic constipation, Raynaud' s muscle spasms, Parkinson's, COPD presenting with epigastric pain x 1 day 1. Epigastric pain -US and HIDA scan negative -CT scan shows mild ileus with mild GB dilation -lipase normal -metabolic profile wnl today -gastritis in the differential -morphine 2 mg iv q 6 prn pain -zofran 4 q 6 -continue IVF -advance to clear liquids 2. hx of COPD -continue brovana -continue pulmicort .5 mg q 12. 3. hx of anxiety -continue lexapro 10 mg po daily -continue ativan 4. hx of hypothyroid -continue synthroid 50 mcg daily 5. GI/DVT ppx -protonix -SCDs discussed with Dr. Singh <Juanita Singh - Last Filed: 02/26/17 20:31> Objective - Vital Signs/Intake and Output Vital Signs (last 24 hours): Temp Pulse Resp BP Pulse Ox 98.6 F 85 20 107/77 93 L 02/26/17 16:00 02/26/17 16:00 02/26/17 16:00 02/26/17 16:00 02/26/17 16:00 Intake and Output: 02/26/17 02/27/17 18:59 06:59 Intake Total 240 Balance 240 - Medications Medications: Current Medications Arformoterol Tartrate (Brovana) 15 mcg IH [id number] [facility] Last Admin: 02/26/17 20:25 Dose: 15 mcg Budesonide (Pulmicort Respules) 0.5 mg IH [id number] [facility] Last Admin: 02/26/17 20:25 Dose: 0.5 mg Escitalopram Oxalate (Lexapro) 10 mg PO DAILY [facility] Last Admin: 02/26/17 09:44 Dose: 10 mg Potassium Chloride 20 meq/ (Dextrose/Sodium Chloride) 1,010 mls @ 100 mls/hr IV .Q10H6M [facility] Last Admin: 02/26/17 17:41 Dose: 100 mls/hr Sodium Chloride (Sodium Chloride 0.9%) 1,000 mls @ 100 mls/hr IV .Q10H [facility] Ceftriaxone Sodium (Rocephin 1 Gram Ivpb) 1 gm in 100 mls @ 100 mls/hr IVPB DAILY [facility] PRN Reason: Protocol Ketorolac Tromethamine (Toradol) 15 mg IVP Q6 PRN PRN Reason: PAIN MOD [4-7] Last Admin: 02/26/17 18:31 Dose: 15 mg Levothyroxine Sodium (Synthroid) 50 mcg PO ACB [facility] Last Admin: 02/26/17 09:46 Dose: 50 mcg Lorazepam (Ativan) 0.5 mg PO Q8 [facility] PRN Reason: Protocol Last Admin: 02/26/17 14:51 Dose: 0.5 mg Ondansetron HCl (Zofran Inj) 4 mg IVP Q6 PRN PRN Reason: Nausea/Vomiting Last Admin: 02/26/17 14:47 Dose: 4 mg Pantoprazole Sodium (Protonix Inj) 40 mg IVP DAILY [facility] Last Admin: 02/26/17 09:45 Dose: 40 mg Pneumococcal Polyvalent Vaccine (Pneumovax 23 Vaccine) 0.5 ml IM .ONCE ONE Stop: 02/27/17 10:01 Zolpidem Tartrate (Ambien) 5 mg PO HS PRN; Protocol PRN Reason: Insomnia Last Admin: 02/25/17 23:53 Dose: 5 mg - Labs Labs: 02/26/17 06:30 02/26/17 06:30 PT 11.2 Seconds (9.9-11.8) 02/25/17 16:00 INR 1.04 (0.93-1.08) 02/25/17 16:00 APTT 27.7 Seconds (23.7-30.8) 02/25/17 16:00 Attending/Attestation - Attestation I have personally seen and examined this patient.: Yes I have fully participated in the care of the patient.: Yes I have reviewed all pertinent clinical information, including history, physical exam and plan: Yes Notes (Text): 02/26/17 20:26 51 year old female with past medical history of gastroparesis, COPD and Parkinson's disease who presented with abdominal pain with nausea and vomiting. CT abd/pelvis showed mild ileus and mild gallbladder distension. HIDA scan and US abdomen was negative. GI and surgery evaluation were appreciated. She did not tolerate liquid diet this afternoon so her diet is scaled back to NPO for now. Continue with iv fluids, protonix and analgesics. Will stop morphine due to ileus. Can try toradol prn for short duration if needed for pain if patient is not able to tolerate po. Ucx grew gram negative rods. Will start ceftriaxone. Juanita Singh MD Hospitalist.
[2017-02-26] MEDS ORDERED: Morphine 2 mg/ml ISec IVP PRN (15:35)
[2017-02-26] MEDS: Potassium Chloride 20 MEQ in Dextrose 5%/0.45% NS 1,000 ML IV SCH (17:41)
[2017-02-26] MEDS ORDERED: Morphine 2 mg/ml ISec IVP SCH (18:00)
--- NOTE | 2017-02-27 06:24 | PN ---
DATE: 02/27/2017 SUBJECTIVE: I examined the patient this morning. She is a 51-year-old white female admitted for a change in mental status and abdominal pain plus nausea and vomiting. Note that the patient has a past medical history of gastroparesis and Parkinson's disease. I asked the patient multiple questions this morning. The patient is basically staring into space, not answering any questions, oblivious to my presence. I reviewed this issue with the nurse on the floor. According to the notes documented by nursing, the patient was awake and alert, earlier in the evening. There was no abdominal pain noted. This is from the previous notes. She was able to handle some part of liquid diet. PHYSICAL EXAMINATION: VITAL SIGNS: I reviewed this patient's vital signs. HEENT: Unable to be done. LUNGS: Decreased breath sounds basilar. HEART: Regular rhythm. ABDOMEN: Soft. No tenderness elicited. I reviewed this patient's laboratory data. Basically noncontributory to the current problem. The patient had a positive urine, gram-negative rods 100,000 CFUs per mL. The patient had a nuclear scan yesterday, which indicated cystic duct was patent with a normal hepatobiliary scan. OVERALL ASSESSMENT: A 51-year-old white female admitted with nausea, vomiting, abdominal pain, some diarrhea. Admitted with problem with symptoms suggestive of gastroenteritis. Again, the patient is not talking this morning so she could not really elaborate. At least at the current time point, maintain the orders written by the house staff and hospitalist. Samson Moore DO, PhD cc: [id number] TT: 02/27/2017 06:22:59 Confirmation # [id number] Dictation # [id number] MEE
[2017-02-27] MEDS: Arformoterol 15 mcg/2 ml Inh Sol IH SCH ×2 (07:46→19:55)
[2017-02-27] MEDS: Budesonide 0.5 mg/2 ml Inhal Susp UD IH SCH ×2 (07:46→19:55)
[2017-02-27 08:01] LABS: ADD MANUAL DIFF? NO
[2017-02-27 08:09] LABS: BASO # 0.03 K/mm3 (0.0-2.0); BASO % 0.4 % (0.0-3.0); EOS # 0.2 (0.0-0.7); EOS % 2.9 % (1.5-5.0); GRAN # 4.56 (1.4-6.5); GRAN % 65.1 % (50.0-68.0); HEMATOCRIT 37.1 % (36.0-48.0); LYMPH # 1.7 (1.2-3.4); MEAN CELL VOLUME 82.4 fL (80.0-105.0); MEAN CORPUSCULAR HEMOGLOBIN 26.2 pg (25.0-35.0); MEAN CORPUSCULAR HGB CONC 31.8 g/dl (31.0-37.0); MEAN PLATELET VOLUME 9.6 fl (7.0-11.0); MONO # 0.5 (0.1-0.6); MONO % 7.6 % (1.0-6.0); PLATELET COUNT 310 10^3/uL (120.0-450.0); RED CELL DISTRIBUTION WIDTH 13.8 % (11.5-14.5)
[2017-02-27 08:19] LABS: ALB/GLOB RATIO 1.4 (1.1-1.8); ALKALINE PHOSPHATASE 50 U/L (38-133); ALT/SGPT 32 U/L (7-56); AST/SGOT 28 U/L (15-39); BILIRUBIN,TOTAL 0.4 mg/dL (0.2-1.3); BLOOD UREA NITROGEN 9 mg/dL (7-21); CALCIUM 9.1 mg/dL (8.4-10.5); CARBON DIOXIDE 23 mmol/L (21-33); CHLORIDE 104 mmol/L (95-110); GFR AFRICAN-AMERICAN > 60; GLUCOSE,RANDOM 84 mg/dL (70-110); MAGNESIUM 1.9 mg/dL (1.7-2.2); PHOSPHOROUS 3.6 mg/dL (2.5-4.5); POTASSIUM 4.1 mmol/L (3.6-5.0); SODIUM 138 mmol/L (132-148); TOTAL PROTEIN 7.5 g/dL (5.8-8.3)
[2017-02-27] MEDS: cefTRIAXone 1 gm 1 GM/100 ML BAG IVPB SCH (09:00)
[2017-02-27] MEDS: Levothyroxine 50 MCG TAB PO SCH (09:01)
[2017-02-27] MEDS: Carbidopa/Levodopa 25/250 PO SCH ×3 (09:01→17:23)
[2017-02-27] MEDS ORDERED: Pneumococcal 23-Valent Vaccine IM ONE (10:00)
--- NOTE | 2017-02-27 15:13 | CP.PCM.PN ---
Subjective - Date & Time of Evaluation Date of Evaluation: 02/27/17 Time of Evaluation: 09:10 - Subjective Subjective: Patient seen and examined at bedside. Labs, vitals and notes reviewed. Case discussed with GI attending. Patient still nauseous and has some generalized abdominal discomfort. No vomiting. Denies any new complaints. Objective - Vital Signs/Intake and Output Vital Signs (last 24 hours): Temp Pulse Resp BP Pulse Ox 98.1 F 76 19 141/97 H 98 02/27/17 06:00 02/27/17 06:00 02/27/17 06:00 02/27/17 06:00 02/27/17 06:00 Intake and Output: 02/27/17 02/27/17 06:59 18:59 Intake Total 360 Balance 360 - Medications Medications: Current Medications Arformoterol Tartrate (Brovana) 15 mcg IH [id number] [facility] Last Admin: 02/27/17 07:46 Dose: 15 mcg Budesonide (Pulmicort Respules) 0.5 mg IH [id number] [facility] Last Admin: 02/27/17 07:46 Dose: 0.5 mg Carbidopa/Levodopa (Sinemet) 1 tab PO TID [facility] Last Admin: 02/27/17 14:28 Dose: 1 tab Escitalopram Oxalate (Lexapro) 10 mg PO DAILY [facility] Last Admin: 02/27/17 08:59 Dose: 10 mg Sodium Chloride (Sodium Chloride 0.9%) 1,000 mls @ 100 mls/hr IV .Q10H [facility] Last Admin: 02/27/17 05:17 Dose: 100 mls/hr Ceftriaxone Sodium (Rocephin 1 Gram Ivpb) 1 gm in 100 mls @ 100 mls/hr IVPB DAILY [facility] PRN Reason: Protocol Last Admin: 02/27/17 09:00 Dose: 100 mls/hr Ketorolac Tromethamine (Toradol) 15 mg IVP Q6 PRN PRN Reason: PAIN MOD [4-7] Last Admin: 02/27/17 09:02 Dose: 15 mg Levothyroxine Sodium (Synthroid) 50 mcg PO ACB [facility] Last Admin: 02/27/17 09:01 Dose: 50 mcg Lorazepam (Ativan) 0.5 mg PO Q8 [facility] PRN Reason: Protocol Last Admin: 02/27/17 14:27 Dose: 0.5 mg Ondansetron HCl (Zofran Inj) 4 mg IVP Q6H PRN PRN Reason: Nausea/Vomiting Pantoprazole Sodium (Protonix Inj) 40 mg IVP DAILY [facility] Last Admin: 02/27/17 08:59 Dose: 40 mg Zolpidem Tartrate (Ambien) 5 mg PO HS PRN; Protocol PRN Reason: Insomnia Last Admin: 02/26/17 22:24 Dose: 5 mg - Labs Labs: 02/27/17 07:45 02/27/17 07:45 PT 11.2 Seconds (9.9-11.8) 02/25/17 16:00 INR 1.04 (0.93-1.08) 02/25/17 16:00 APTT 27.7 Seconds (23.7-30.8) 02/25/17 16:00 - Constitutional Appears: Well, Non-toxic, No Acute Distress - Head Exam Head Exam: ATRAUMATIC, NORMAL INSPECTION - Eye Exam Eye Exam: Normal appearance, PERRL - ENT Exam ENT Exam: Mucous Membranes Dry - Neck Exam Neck Exam: Full ROM - Respiratory Exam Respiratory Exam: Clear to Ausculation Bilateral, NORMAL BREATHING PATTERN - Cardiovascular Exam Cardiovascular Exam: RRR, +S1, +S2 - GI/Abdominal Exam GI & Abdominal Exam: Soft, Tenderness, Normal Bowel Sounds Additional comments: - rebound, - guarding - Rectal Exam Rectal Exam: Deferred - Extremities Exam Extremities Exam: Full ROM, Normal Inspection - Back Exam Back Exam: NORMAL INSPECTION - Neurological Exam Neurological Exam: Alert, Oriented x3 Additional comments: + parkinson tremor - Psychiatric Exam Psychiatric exam: Normal Affect, Normal Mood - Skin Skin Exam: Dry, Normal Color, Warm Assessment and Plan - Assessment and Plan (Free Text) Plan: 51 y/o woman with h/o Parkinson's disease, gastroparesis, chronic constipation, Raynaud's muscle spasms as well as COPD presented with epigastric pain, nausea/ vomiting for 1 day. Patient has been on IV fluids, anti-emetic and PPIs and GI follow up has been ongoing. 1. Epigastric pain possible2/2 Gastroenteritis with mild ileus - Continue IV fluids, Clear liquid diet, antiemetics/ analgesic prn - Continue NF Domperidone 2.COPD -continue brovana -continue pulmicort .5 mg q 12. 3.anxiety -continue lexapro 10 mg po daily -continue ativan 4. hx of hypothyroid -continue synthroid 50 mcg daily 5. GI/DVT ppx -Continue protonix -Continue SCDs
[2017-02-28] MEDS: Arformoterol 15 mcg/2 ml Inh Sol IH SCH ×2 (07:59→21:00)
[2017-02-28] MEDS: Budesonide 0.5 mg/2 ml Inhal Susp UD IH SCH ×2 (07:59→21:00)
[2017-02-28] MEDS: Levothyroxine 50 MCG TAB PO SCH (08:00)
--- NOTE | 2017-02-28 08:41 | PN ---
DATE: 02/28/2017 I examined the patient this morning. She is a 51-year-old white female with complaints of nausea and vomiting and abdominal pain. As indicated previously, the patient has a history of gastroparesis and Parkinson disease. This morning the patient was awake and alert, exhibiting a resting tremor in her right hand as we were talking. This is contrary to her mental status yesterday where she was out of it and not speaking, probably as a result of Parkinson disease. In a prolonged discussion at bedside, the patient indicated previously she was on domperidone for gastroparesis prescribed by Dr. Juarez of the [facility]. Due to expense issues, the patient is unable to afford the domperidone, which has to be purchased from [facility]. Note that initially she stated she was on domperidone. Now, she indicates she has been on Reglan 10 mg orally 4 times daily for a time period, questionable. The patient indicated she was unable to handle an advance of diet yesterday. Subsequently moved back to a liquid consistency, which apparently she has no problem with. She is passing some flatus. I talked at length about abdominal distention, bowel movements. The abdomen is less distended, pain is less, discomfort more in the epigastric area. PHYSICAL EXAMINATION: VITAL SIGNS: I reviewed this patient's vital signs. HEENT: Noncontributory. LUNGS: Clear to auscultation at the apex, decreased breath sounds basilar. HEART: Regular rhythm. ABDOMEN: Significant for mild protuberance. She has irregular bowel sounds, tender in the epigastric area, left upper quadrant. I reviewed this patient's laboratory data to date, basically noncontributory. I reviewed the respective progress notes. I discussed the case with Dr. Basurto yesterday. OVERALL ASSESSMENT: This is a 51-year-old white female with history of Parkinson's and gastroparesis. She was admitted with complaints of abdominal pain, diarrhea, nausea and vomiting, probably secondary to gastroenteritis with some component of motility disorder. Note that there was a colonic ileus on admission. Review of the CT images indicates normal colonic caliber, no evidence of colitis, no evidence of fecal impaction. However, she did have stool in her rectum. I did discuss with her the possibility of using a glycerin suppository to decrease the degree of abdominal distention caused by air in the colon. She will get this some time later this morning. The gastroparesis issue in her case is significant. Again, this has been verified by gastric emptying study at [facility]. Initially, she indicated she had been on domperidone. However, subsequently today indicated because of expenses unable to order the medication again from [facility]. She has been on Reglan 10 mg orally 4 times daily for an undetermined time period. She will continue with this until she is able to afford domperidone. Note that use of Reglan in this particular case is problematic since it will have an adverse effect on her Parkinson's symptoms including possibility of tardive dyskinesia. Note that she does have resting tremor on exam today. This was not appreciated when she was admitted. I reviewed the issue of the gastroparesis problem and the use of Reglan with the pharmacy this morning as well as the nurse on the oncology floor. Use of oral Reglan in this particular case would be problematic given her gastroparesis issue. IV would probably work; however, it may exacerbate her Parkinson's issues. I elected to use the Reglan formulation of 10 mg subQ q.12 , which would be less problematic regarding the issues discussed above. The pharmacy ended these in this patient's formulary. At least for now, if the patient should stay on 10 mg subQ b.i.d., possibly continue this on the outside if this was agreeable to Dr. Juarez, her outside gastrointestinal specialty sales consultant. As of today, we will continue her on a full liquid diet. If symptoms permit, may consider advance to soft. Samson Moore DO, PhD cc: [id number] TT: 02/28/2017 08:40:47 Confirmation # [id number] Dictation # [id number] MEE
[2017-02-28] MEDS: cefTRIAXone 1 gm 1 GM/100 ML BAG IVPB SCH (09:43)
[2017-02-28] MEDS: Carbidopa/Levodopa 25/250 PO SCH ×3 (09:44→17:38)
[2017-02-28 11:52] LABS: ADD MANUAL DIFF? NO
[2017-02-28 11:56] LABS: BASO # 0.04 K/mm3 (0.0-2.0); BASO % 0.5 % (0.0-3.0); EOS # 0.1 (0.0-0.7); EOS % 1.7 % (1.5-5.0); GRAN # 5.78 (1.4-6.5); GRAN % 72.1 % (50.0-68.0); HEMATOCRIT 40.7 % (36.0-48.0); LYMPH # 1.6 (1.2-3.4); LYMPH % 20.1 % (22.0-35.0); MEAN CELL VOLUME 82.4 fL (80.0-105.0); MEAN CORPUSCULAR HEMOGLOBIN 27.3 pg (25.0-35.0); MEAN CORPUSCULAR HGB CONC 33.2 g/dl (31.0-37.0); MEAN PLATELET VOLUME 9.6 fl (7.0-11.0); MONO # 0.5 (0.1-0.6); MONO % 5.6 % (1.0-6.0); PLATELET COUNT 353 10^3/uL (120.0-450.0)
[2017-02-28 12:53] LABS: ALB/GLOB RATIO 1.3 (1.1-1.8); ALKALINE PHOSPHATASE 52 U/L (38-133); ALT/SGPT 14 U/L (7-56); AST/SGOT 44 U/L (15-39); BILIRUBIN,TOTAL 0.5 mg/dL (0.2-1.3); BLOOD UREA NITROGEN 7 mg/dL (7-21); CALCIUM 10.3 mg/dL (8.4-10.5); CARBON DIOXIDE 26 mmol/L (21-33); CHLORIDE 102 mmol/L (98-107); GFR AFRICAN-AMERICAN > 60; GLUCOSE,RANDOM 101 mg/dL (70-110); POTASSIUM 4.6 mmol/L (3.6-5.0); SODIUM 140 mmol/L (132-148); TOTAL PROTEIN 8.9 g/dL (5.8-8.3)
--- NOTE | 2017-02-28 13:18 | CP.PCM.PN ---
Subjective - Date & Time of Evaluation Date of Evaluation: 02/28/17 Time of Evaluation: 10:40 - Subjective Subjective: patient seen and examined at the bedside with the resident. Awake and alert and still has complaints of nausea but not as much vomiting. Labs, vitals, notes and orders reviewed. She denies any new complaints. Objective - Vital Signs/Intake and Output Vital Signs (last 24 hours): Temp Pulse Resp BP Pulse Ox 98.0 F 54 L 17 147/89 94 L 02/28/17 06:00 02/28/17 06:00 02/28/17 06:00 02/28/17 06:00 02/28/17 06:00 Intake and Output: 02/28/17 02/28/17 06:59 18:59 Intake Total 540 Balance 540 - Medications Medications: Current Medications Arformoterol Tartrate (Brovana) 15 mcg IH [id number] [facility] Last Admin: 02/28/17 07:59 Dose: 15 mcg Budesonide (Pulmicort Respules) 0.5 mg IH [id number] [facility] Last Admin: 02/28/17 07:59 Dose: 0.5 mg Carbidopa/Levodopa (Sinemet) 1 tab PO TID [facility] Last Admin: 02/28/17 09:44 Dose: 1 tab Escitalopram Oxalate (Lexapro) 10 mg PO DAILY [facility] Last Admin: 02/28/17 09:44 Dose: 10 mg Ceftriaxone Sodium (Rocephin 1 Gram Ivpb) 1 gm in 100 mls @ 100 mls/hr IVPB DAILY [facility] PRN Reason: Protocol Last Admin: 02/28/17 09:43 Dose: 100 mls/hr Sodium Chloride (Sodium Chloride 0.9%) 1,000 mls @ 50 mls/hr IV .Q20H [facility] Ketorolac Tromethamine (Toradol) 15 mg IVP Q6 PRN PRN Reason: PAIN MOD [4-7] Last Admin: 02/28/17 08:00 Dose: 15 mg Levothyroxine Sodium (Synthroid) 50 mcg PO ACB [facility] Last Admin: 02/28/17 08:00 Dose: 50 mcg Lorazepam (Ativan) 0.5 mg PO Q8 [facility] PRN Reason: Protocol Last Admin: 02/28/17 06:28 Dose: 0.5 mg Metoclopramide HCl (Reglan) 10 mg IVPB Q12 [facility] Last Admin: 02/28/17 09:42 Dose: 10 mg Ondansetron HCl (Zofran Inj) 4 mg IVP Q6H PRN PRN Reason: Nausea/Vomiting Last Admin: 02/28/17 07:59 Dose: 4 mg Pantoprazole Sodium (Protonix Inj) 40 mg IVP DAILY [facility] Last Admin: 02/28/17 09:42 Dose: 40 mg Zolpidem Tartrate (Ambien) 5 mg PO HS PRN; Protocol PRN Reason: Insomnia Last Admin: 02/27/17 23:08 Dose: 5 mg - Labs Labs: 02/28/17 11:51 02/28/17 12:45 PT 11.2 Seconds (9.9-11.8) 02/25/17 16:00 INR 1.04 (0.93-1.08) 02/25/17 16:00 APTT 27.7 Seconds (23.7-30.8) 02/25/17 16:00 - Constitutional Appears: Well, Non-toxic, No Acute Distress - Head Exam Head Exam: ATRAUMATIC, NORMAL INSPECTION - Eye Exam Eye Exam: Normal appearance, PERRL - ENT Exam ENT Exam: Mucous Membranes Moist, Normal Exam - Neck Exam Neck Exam: Full ROM, Normal Inspection - Respiratory Exam Respiratory Exam: Clear to Ausculation Bilateral, NORMAL BREATHING PATTERN - Cardiovascular Exam Cardiovascular Exam: RRR, +S1, +S2 - GI/Abdominal Exam GI & Abdominal Exam: Soft, Normal Bowel Sounds Additional comments: Minimal generalized tenderness, no rebound, no guarding - Rectal Exam Rectal Exam: Deferred - Extremities Exam Extremities Exam: Full ROM, Normal Capillary Refill, Normal Inspection - Back Exam Back Exam: Full ROM, NORMAL INSPECTION - Neurological Exam Neurological Exam: Alert, Oriented x3 Additional comments: + parkinson tremor - Psychiatric Exam Psychiatric exam: Normal Mood - Skin Skin Exam: Normal Color, Warm Assessment and Plan - Assessment and Plan (Free Text) Plan: 51 y/o woman with h/o Parkinson's disease, gastroparesis, chronic constipation, Raynaud's muscle spasms as well as COPD presented with epigastric pain, nausea/ vomiting for 1 day. Patient has been on IV fluids, anti-emetic PPIs for his GI symptoms. She continues to have nausea and reglan has been added to her regimen today. She is also on Rocephin for her E.Coli UTI. GI follow up has been ongoing. 1. Epigastric pain possible2/2 Gastroenteritis with mild ileus/ Metabolic abnormality - Continue IV fluids, Clear liquid diet, antiemetics/ analgesic prn - Continue Reglan regimen 2. E.Coli UTI - Continue Rocephin. 3.COPD -continue brovana -continue pulmicort .5 mg q 12. 4.Anxiety -continue lexapro 10 mg po daily -continue ativan 5.Hypothyroidism -continue synthroid 50 mcg daily 6. Parkinson's Disease - Continue Sinemet regimen 7. GI/DVT ppx -Continue protonix -Continue SCDs
[2017-02-28] MEDS: Sodium Chloride 0.9% 1,000 ML IV SCH (14:07)
[2017-03-01 08:19] VITALS: RESP 18; O2SAT 95
--- NOTE | 2017-03-01 09:12 | PN ---
DATE: 03/01/2017 I examined the patient this morning. She is a 51-year-old white female admitted with a gastroenteritis type condition associated with ileus, nausea, vomiting, abdominal pain, diarrhea. The patient has made some progress over the past couple of days on the current therapeutic regimen. Yesterday, she was initiated on Reglan subQ route to help with her gastroparesis issue. Note that she initially was on domperidone; however, due to expenses, could not afford it. Currently she has been taking Reglan 4 times daily at home. This is contrary to what she told me on initial admission. The patient indicates some decrease in abdominal pain today, rated roughly 4 to 5/10, and she is passing gas. She is able to handle some degree of clear liquids, and I suggested dietary advance. PHYSICAL EXAMINATION: VITAL SIGNS: I reviewed this patient's vital signs. HEENT: Noncontributory. LUNGS: Decreased breath sounds basilar. HEART: Regular rhythm. ABDOMEN: Significant for being less distended. No tenderness elicited below the level of the umbilicus. She is mildly tender in the area slightly above the umbilicus and epigastric area. She has hypoactive bowel sounds. LABORATORY DATA: I reviewed the respective labs and a progress note from Dr. Basurto as of yesterday. OVERALL ASSESSMENT: This is a 51-year-old white female with a gastroenteritis type condition, improving on the current regimen. She has 2 confounding factors. 1. Gastroparesis documented by gastric emptying study at [facility]. Due to the lack of availability of domperidone which lacks significant side effects, only option in her particular case is to use Reglan or erythromycin. Reglan will cause less nausea than erythromycin, but may be somewhat problematic related to her Parkinson's disease. In this particular case, had no choice. She must purchase domperidone when she leaves the hospital as an outpatient. This will alleviate any potential side effects related to her Parkinson's disease. At least for the current time period, since she made some progress on b.i.d. Reglan subQ, would advance to 10 mg subQ q. 8 hours and check response. Note that she had been on Reglan 10 four times daily p.o. at home. 2. The patient has Parkinson's disease. On examination this morning, she still has a slight resting tremor. She is receiving medications for that. Again, as indicated above, use of Reglan in this case may be problematic, but that is no other alternative in this particular case. Diet-mitchell, increase diet to full liquids. I advised her to intake very small volumes throughout the day as tolerated. Samson Moore DO, PhD cc: [id number] TT: 03/01/2017 09:11:59 Confirmation # [id number] Dictation # [id number] [id number]
[2017-03-01 09:31] LABS: ADD MANUAL DIFF? NO
[2017-03-01] MEDS: cefTRIAXone 1 gm 1 GM/100 ML BAG IVPB SCH (09:32)
[2017-03-01] MEDS: Levothyroxine 50 MCG TAB PO SCH (09:33)
[2017-03-01] MEDS: Sodium Chloride 0.9% 1,000 ML IV SCH (09:33)
[2017-03-01] MEDS: Carbidopa/Levodopa 25/250 PO SCH ×3 (09:33→17:24)
[2017-03-01 09:40] LABS: BASO # 0.04 K/mm3 (0.0-2.0); BASO % 0.5 % (0.0-3.0); EOS # 0.2 (0.0-0.7); EOS % 2.5 % (1.5-5.0); GRAN # 4.71 (1.4-6.5); GRAN % 62.7 % (50.0-68.0); HEMATOCRIT 41.5 % (36.0-48.0); LYMPH # 2.1 (1.2-3.4); LYMPH % 27.6 % (22.0-35.0); MEAN CELL VOLUME 82.5 fL (80.0-105.0); MEAN CORPUSCULAR HEMOGLOBIN 26.6 pg (25.0-35.0); MEAN CORPUSCULAR HGB CONC 32.3 g/dl (31.0-37.0); MONO # 0.5 (0.1-0.6); MONO % 6.7 % (1.0-6.0); PLATELET COUNT 348 10^3/uL (120.0-450.0); RED CELL DISTRIBUTION WIDTH 14.2 % (11.5-14.5); WHITE BLOOD COUNT 7.5 10^3/ul (4.5-11.0)
[2017-03-01 09:54] LABS: ALB/GLOB RATIO 1.3 (1.1-1.8); ALKALINE PHOSPHATASE 48 U/L (38-133); ALT/SGPT 25 U/L (7-56); AST/SGOT 29 U/L (15-39); BILIRUBIN,TOTAL 0.5 mg/dL (0.2-1.3); BLOOD UREA NITROGEN 8 mg/dL (7-21); CALCIUM 10.3 mg/dL (8.4-10.5); CARBON DIOXIDE 25 mmol/L (21-33); CHLORIDE 103 mmol/L (98-107); GFR AFRICAN-AMERICAN > 60; GLUCOSE,RANDOM 94 mg/dL (70-110); MAGNESIUM 1.9 mg/dL (1.7-2.2); PHOSPHOROUS 4.6 mg/dL (2.5-4.5); POTASSIUM 4.4 mmol/L (3.6-5.0); SODIUM 141 mmol/L (132-148); TOTAL PROTEIN 8.5 g/dL (5.8-8.3)
--- NOTE | 2017-03-01 11:05 | CP.PCM.PN ---
<Ahmet Puentes - Last Filed: 03/01/17 11:07> Subjective - Date & Time of Evaluation Date of Evaluation: 03/01/17 Time of Evaluation: 11:00 - Subjective Subjective: Medicine progress note. Attending: Dr. Gramajo Pt seen and examined at bedside. No acute distress. On reglan regimen for gastroparesis. Still with a lot of nausea, not eating a lot. Will monitor for tolerating diet. No fevers, chills, vomiting, cp, sob. Objective - Vital Signs/Intake and Output Vital Signs (last 24 hours): Temp Pulse Resp BP Pulse Ox 97.9 F 45 L 18 143/90 95 03/01/17 08:18 03/01/17 08:18 03/01/17 08:18 03/01/17 08:18 03/01/17 08:18 Intake and Output: 03/01/17 03/01/17 06:59 18:59 Intake Total 540 120 Balance 540 120 - Medications Medications: Current Medications Arformoterol Tartrate (Brovana) 15 mcg IH [id number] [facility] Last Admin: 02/28/17 21:00 Dose: 15 mcg Budesonide (Pulmicort Respules) 0.5 mg IH [id number] [facility] Last Admin: 02/28/17 21:00 Dose: 0.5 mg Carbidopa/Levodopa (Sinemet) 1 tab PO TID [facility] Last Admin: 03/01/17 09:33 Dose: 1 tab Escitalopram Oxalate (Lexapro) 10 mg PO DAILY [facility] Last Admin: 03/01/17 09:28 Dose: 10 mg Ceftriaxone Sodium (Rocephin 1 Gram Ivpb) 1 gm in 100 mls @ 100 mls/hr IVPB DAILY [facility] PRN Reason: Protocol Last Admin: 03/01/17 09:32 Dose: 100 mls/hr Sodium Chloride (Sodium Chloride 0.9%) 1,000 mls @ 50 mls/hr IV .Q20H [facility] Last Admin: 03/01/17 09:33 Dose: 50 mls/hr Ketorolac Tromethamine (Toradol) 15 mg IVP Q6 PRN PRN Reason: PAIN MOD [4-7] Last Admin: 03/01/17 09:34 Dose: 15 mg Levothyroxine Sodium (Synthroid) 50 mcg PO ACB [facility] Last Admin: 03/01/17 09:33 Dose: 50 mcg Lorazepam (Ativan) 0.5 mg PO Q8 [facility] PRN Reason: Protocol Last Admin: 03/01/17 05:50 Dose: 0.5 mg Metoclopramide HCl (Reglan) 10 mg SC Q8H [facility] Stop: 03/04/17 23:59 Ondansetron HCl (Zofran Inj) 4 mg IVP Q6H PRN PRN Reason: Nausea/Vomiting Last Admin: 02/28/17 17:40 Dose: 4 mg Pantoprazole Sodium (Protonix Inj) 40 mg IVP DAILY [facility] Last Admin: 03/01/17 09:29 Dose: 40 mg Zolpidem Tartrate (Ambien) 5 mg PO HS PRN; Protocol PRN Reason: Insomnia Last Admin: 02/28/17 23:00 Dose: 5 mg - Labs Labs: 03/01/17 09:20 03/01/17 09:20 PT 11.2 Seconds (9.9-11.8) 02/25/17 16:00 INR 1.04 (0.93-1.08) 02/25/17 16:00 APTT 27.7 Seconds (23.7-30.8) 02/25/17 16:00 - Constitutional Appears: Non-toxic, No Acute Distress - Head Exam Head Exam: ATRAUMATIC, NORMAL INSPECTION, NORMOCEPHALIC - Eye Exam Eye Exam: EOMI - ENT Exam ENT Exam: Mucous Membranes Moist - Neck Exam Neck Exam: Full ROM, Normal Inspection - Respiratory Exam Respiratory Exam: NORMAL BREATHING PATTERN. absent: Respiratory Distress - Cardiovascular Exam Cardiovascular Exam: +S1, +S2 - GI/Abdominal Exam GI & Abdominal Exam: Tenderness, Normal Bowel Sounds Additional comments: Mildly tender to palpation - Extremities Exam Extremities Exam: Full ROM, Normal Inspection - Neurological Exam Neurological Exam: Alert, Awake, Oriented x3 Additional comments: Resting tremor - Psychiatric Exam Psychiatric exam: Flat Affect - Skin Skin Exam: Dry, Intact, Normal Color, Warm Assessment and Plan - Assessment and Plan (Free Text) Assessment: This is a 51 year old woman with history of Parkinson's disease, gastroparesis, chronic constipation, Raynaud's muscle spasms as well as COPD presenting with epigastric pain, nausea/vomiting for 1 day. Patient has been on IV fluids, anti- emetic PPIs for her GI symptoms. She continues to have nausea and reglan has been added to her regimen 1. Epigastric pain possible 2/2 Gastroenteritis with mild ileus/ Metabolic abnormality - Continue IV fluids, full liquid diet, antiemetics/ analgesic prn - Continue Reglan regimen -GI consult. Dr. Moore. recs appreciated. 2. E.Coli UTI - Continue Rocephin. 3.COPD -continue brovana -continue pulmicort .5 mg q 12. 4.Anxiety -continue lexapro 10 mg po daily -continue ativan 5.Hypothyroidism -continue synthroid 50 mcg daily 6. Parkinson's Disease - Continue Sinemet regimen 7. GI/DVT ppx -Continue protonix -Continue SCDs dw Dr. Gramajo <Clarita Gramajo - Last Filed: 03/02/17 16:41> Objective - Vital Signs/Intake and Output Vital Signs (last 24 hours): Temp Pulse Resp BP Pulse Ox 98.2 F 51 L 18 144/90 95 03/02/17 08:49 03/02/17 08:49 03/02/17 08:49 03/02/17 08:49 03/02/17 08:49 Intake and Output: 03/02/17 03/02/17 06:59 18:59 Intake Total 1220 120 Balance 1220 120 - Labs Labs: 03/02/17 07:00 03/02/17 07:00 PT 11.2 Seconds (9.9-11.8) 02/25/17 16:00 INR 1.04 (0.93-1.08) 02/25/17 16:00 APTT 27.7 Seconds (23.7-30.8) 02/25/17 16:00 Attending/Attestation - Attestation I have personally seen and examined this patient.: Yes I have fully participated in the care of the patient.: Yes I have reviewed all pertinent clinical information, including history, physical exam and plan: Yes Notes (Text): 03/02/17 16:40 Attending note; Patient seen and examined with resident. Patient is a 51-year-old female admitted with gastroparesis. Currently on Reglan. GI evaluation appreciated. Advance diet as tolerated. Possible discharge home tomorrow. Follow-up with PMD Dr. cano. Follow-up with GI .
[2017-03-01] MEDS: Budesonide 0.5 mg/2 ml Inhal Susp UD IH SCH ×2 (11:25→19:51)
[2017-03-01] MEDS: Arformoterol 15 mcg/2 ml Inh Sol IH SCH ×2 (11:25→19:51)
[2017-03-02 07:20] LABS: ADD MANUAL DIFF? NO
[2017-03-02 07:22] LABS: BASO # 0.04 K/mm3 (0.0-2.0); BASO % 0.4 % (0.0-3.0); EOS # 0.2 (0.0-0.7); EOS % 2.3 % (1.5-5.0); GRAN # 6.57 (1.4-6.5); HEMATOCRIT 37.3 % (36.0-48.0); LYMPH # 1.8 (1.2-3.4); LYMPH % 19.7 % (22.0-35.0); MEAN CELL VOLUME 80.9 fL (80.0-105.0); MEAN CORPUSCULAR HEMOGLOBIN 26.7 pg (25.0-35.0); MEAN PLATELET VOLUME 10.1 fl (7.0-11.0); MONO # 0.6 (0.1-0.6); MONO % 6.6 % (1.0-6.0); PLATELET COUNT 295 10^3/uL (120.0-450.0); RED CELL DISTRIBUTION WIDTH 14.1 % (11.5-14.5); WHITE BLOOD COUNT 9.3 10^3/ul (4.5-11.0)
[2017-03-02 07:39] LABS: ALB/GLOB RATIO 1.3 (1.1-1.8); ALKALINE PHOSPHATASE 49 U/L (38-133); ALT/SGPT 28 U/L (7-56); AST/SGOT 26 U/L (15-39); BILIRUBIN,TOTAL 0.5 mg/dL (0.2-1.3); BLOOD UREA NITROGEN 10 mg/dL (7-21); CALCIUM 9.9 mg/dL (8.4-10.5); CARBON DIOXIDE 22 mmol/L (21-33); CHLORIDE 104 mmol/L (98-107); GFR AFRICAN-AMERICAN > 60; GLUCOSE,RANDOM 85 mg/dL (70-110); MAGNESIUM 1.7 mg/dL (1.7-2.2); PHOSPHOROUS 4.7 mg/dL (2.5-4.5); SODIUM 139 mmol/L (132-148); TOTAL PROTEIN 7.8 g/dL (5.8-8.3)
[2017-03-02 07:40] LABS: POTASSIUM 4.1 mmol/L (3.6-5.0)
[2017-03-02] MEDS: Arformoterol 15 mcg/2 ml Inh Sol IH SCH (07:46)
[2017-03-02] MEDS: Budesonide 0.5 mg/2 ml Inhal Susp UD IH SCH (07:46)
[2017-03-02] MEDS: Levothyroxine 50 MCG TAB PO SCH (07:53)
[2017-03-02 08:50] VITALS: BP 144/90; PULSE 51; TEMP 98.2
[2017-03-02] MEDS: Carbidopa/Levodopa 25/250 PO SCH (09:32)
--- NOTE | 2017-03-02 11:54 | PN ---
DATE: 03/02/2017 I examined the patient this morning. She is a 51-year-old white female who has complaints of nausea, vomiting, abdominal pain due to gastroenteritis, possibly compounded by some symptoms of a motility disorder. The patient indicated she had made significant progress yesterday. She is able to eat ihsan e portion of 3 meals throughout the day, less pain, less nausea and vomiting, and she is actually pas sing bowel movements and flatus. The abdomen is decompressed. No hematemesis or rectal bleeding. PHYSICAL EXAMINATION: VITAL SIGNS: Reviewed. HEENT: Noncontributory. LUNGS: Decreased breath sounds at bases, otherwise clear. HEART: Regular rhythm. ABDOMEN: Soft, mild epigastric tenderness. Very mild tenderness in periumbilical, however, signific antly improved. I reviewed this patient's laboratory data. Basically, hematology noncontributory. Chemistry noncont ributory as well. OVERALL ASSESSMENT: This is a 51-year-old white female with complaints of nausea, vomiting, abdomina l pain, significantly improved on the current therapeutic regimen. The patient was able to handle se veral meals yesterday and therefore, might be a candidate to go home today with diet advanced as connie rated. The patient has Parkinson disease. She also has a gastric emptying disorder. The patient's Reglan w as advanced to 10 mg subQ q. 8 hours, which significantly improved results. Note that on the outside , this patient is taking 10 mg of Reglan 4 times daily. Due to the motility disorder, it is question able how well the p.o. route is working. We might consider subQ route on the outside as well. I reviewed the issue of domperidone with this patient that this can only be obtained from [facility]. Re glan as it stands will be problematic for her Parkinson's. By the way, she had a resting tremor this morning. Domperidone has significantly less central nervous system effects; therefore, I advised he r if at all possible to try and access this medication, if not on her own or through some sort of a p lexy that is available. from the [facility] in [place] might assist her with this process. Again, as indicated above, the patient might be able to go home today. We did advance the diet as sh e can tolerate, on the current therapeutic regimen. Samson Moore DO cc: [id number] TT: 03/02/2017 11:53:33 Confirmation # [id number] Dictation # [id number] rn
--- NOTE | 2017-03-02 12:41 | CP.PCM.DIS ---
<Ahmet Puentes - Last Filed: 03/02/17 12:59> Provider - Provider Date of Admission: 02/26/17 16:02 Attending physician: Clarita Gramajo MD Primary care physician: Basia Mohr MD Consults: [employer] Time Spent in preparation of Discharge (in minutes): 45 Hospital Course - Lab Results Lab Results: Most Recent Lab Values WBC 9.3 10^3/ul (4.5-11.0) D 03/02/17 07:00 RBC 4.61 10^6/uL (3.5-6.1) 03/02/17 07:00 Hgb 12.3 gm/dL (12.0-16.0) 03/02/17 07:00 Hct 37.3 % (36.0-48.0) 03/02/17 07:00 MCV 80.9 fL (80.0-105.0) 03/02/17 07:00 MCH 26.7 pg (25.0-35.0) 03/02/17 07:00 MCHC 33.0 g/dl (31.0-37.0) 03/02/17 07:00 RDW 14.1 % (11.5-14.5) 03/02/17 07:00 Plt Count 295 10^3/uL (120.0-450.0) 03/02/17 07:00 MPV 10.1 fl (7.0-11.0) 03/02/17 07:00 Gran % 71.0 % (50.0-68.0) H 03/02/17 07:00 Lymph % (Auto) 19.7 % (22.0-35.0) L 03/02/17 07:00 [place] % (Auto) 6.6 % (1.0-6.0) H 03/02/17 07:00 Eos % (Auto) 2.3 % (1.5-5.0) 03/02/17 07:00 Baso % (Auto) 0.4 % (0.0-3.0) 03/02/17 07:00 Gran # 6.57 (1.4-6.5) H 03/02/17 07:00 Lymph # 1.8 (1.2-3.4) 03/02/17 07:00 [place] # 0.6 (0.1-0.6) 03/02/17 07:00 Eos # 0.2 (0.0-0.7) 03/02/17 07:00 Baso # 0.04 K/mm3 (0.0-2.0) 03/02/17 07:00 PT 11.2 Seconds (9.9-11.8) 02/25/17 16:00 INR 1.04 (0.93-1.08) 02/25/17 16:00 APTT 27.7 Seconds (23.7-30.8) 02/25/17 16:00 Sodium 139 mmol/L (132-148) 03/02/17 07:00 Potassium 4.1 mmol/L (3.6-5.0) 03/02/17 07:00 Chloride 104 mmol/L (98-107) 03/02/17 07:00 Carbon Dioxide 22 mmol/L (21-33) 03/02/17 07:00 Anion Gap 17 (10-20) 03/02/17 07:00 BUN 10 mg/dL (7-21) 03/02/17 07:00 Creatinine 1.1 mg/dL (0.5-1.4) 03/02/17 07:00 Est GFR ( Amer) > 60 03/02/17 07:00 Est GFR (Non-Af Amer) 52 03/02/17 07:00 Random Glucose 85 mg/dL (70-110) 03/02/17 07:00 Lactic Acid 1.7 mmol/L (0.7-2.1) 02/28/17 11:51 Calcium 9.9 mg/dL (8.4-10.5) 03/02/17 07:00 Phosphorus 4.7 mg/dL (2.5-4.5) H 03/02/17 07:00 Magnesium 1.7 mg/dL (1.7-2.2) 03/02/17 07:00 Total Bilirubin 0.5 mg/dL (0.2-1.3) 03/02/17 07:00 AST 26 U/L (15-39) 03/02/17 07:00 ALT 28 U/L (7-56) 03/02/17 07:00 Alkaline Phosphatase 49 U/L (38-133) 03/02/17 07:00 C-React Prot High Sens 3.16 mg/L (1.00-3.00) H 02/28/17 11:51 Total Protein 7.8 g/dL (5.8-8.3) 03/02/17 07:00 Albumin 4.4 g/dL (3.0-4.8) 03/02/17 07:00 Globulin 3.4 gm/dL 03/02/17 07:00 Albumin/Globulin Ratio 1.3 (1.1-1.8) 03/02/17 07:00 Lipase 26 U/L (23-300) 02/25/17 16:00 Urine Color Yellow (YELLOW) 02/25/17 17:02 Urine Appearance Cloudy (CLEAR) 02/25/17 17:02 Urine pH 6.5 (4.7-8.0) 02/25/17 17:02 Ur Specific [place] 1.010 (1.005-1.035) 02/25/17 17:02 Urine Protein 30 mg/dL (<30 mg/dL) H 02/25/17 17:02 Urine Glucose (UA) Negative mg/dL (NEGATIVE) 02/25/17 17:02 Urine Ketones Negative mg/dL (NEGATIVE) 02/25/17 17:02 Urine Blood Negative (NEGATIVE) 02/25/17 17:02 Urine Nitrate Positive (NEGATIVE) H 02/25/17 17:02 Urine Bilirubin Negative (NEGATIVE) 02/25/17 17:02 Urine Urobilinogen 0.2 E.U./dL (<1 E.U./dL) 02/25/17 17:02 Ur Leukocyte Esterase Small Ameya/uL (NEGATIVE) H 02/25/17 17:02 Urine RBC 0 - 2 /hpf (0-2) 02/25/17 17:02 Urine WBC 10 - 15 /hpf (0-6) 02/25/17 17:02 Ur Epithelial Cells Many /hpf (0-5) 02/25/17 17:02 Urine Bacteria Many (NEG) 02/25/17 17:02 - Hospital Course Hospital Course: Admit date- 02/25 DC date- 03/02 Attending: Dr. Gramajo Discharge dx. 1. Gastroparesis 2. UTI 3. COPD 4. Anxiety 5. Hypothyroidism 6. Parkinson's HPI: see h/p Lab data: see labs Procedures- none No complications - stable for dc Hospital course This is a 51 yo female with past medical hx of gastroperesis, chronic constipation, Raynaud's disease, chronic muscle spasms, Parkinson's disease, COPD was sent in from PMD's office for evaluation of epigastric pain. Pain started yesterday afternoon, accompanied by nausea and vomiting, stabbing type , denied diarrhea, denied sick contacts, denied eating any bad food, denied fever or chills. In ER the labs had been to her baseline, CT abd/pelvis with contrast showed distended gallbladder, slight dilated small and large bowel loops, with no point of obstruction. 1. Epigastric pain possible 2/2 Gastroenteritis/gastroparesis with mild ileus/ Metabolic abnormality - Continue IV fluids, advanced diet, antiemetics/ analgesic prn - Continue Reglan regimen -GI consult. Dr. Moore. recs appreciated. 2. E.Coli UTI - Continue Rocephin. 3.COPD -continue brovana -continue pulmicort .5 mg q 12. 4.Anxiety -continue lexapro 10 mg po daily -continue ativan 5.Hypothyroidism -continue synthroid 50 mcg daily 6. Parkinson's Disease - Continue Sinemet regimen 7. GI/DVT ppx -Continue protonix -Continue SCDs DC instructions Please return if condition worsens. Please eat more frequent meals each day, 6 meals. Please take dromperidone as soon as available instead of reglan. Please f /u with PMD. DC meds 1. albuterol inhaler/nebulizer 2. spiriva 3. advair 4. reglan 5. protonix 6. lexapro 7. ambien 8. sinemet 9. synthroid 10. fosamax 11. lipitor 12. vitamin d 13. multivitamins - Date & Time of H&P Date of H&P: 02/25/17 Time of H&P: 21:51 Discharge Exam - Head Exam Head Exam: ATRAUMATIC, NORMAL INSPECTION, NORMOCEPHALIC - Eye Exam Eye Exam: EOMI - ENT Exam ENT Exam: Mucous Membranes Moist - Neck Exam Neck exam: Full Rom, Normal Inspection - Respiratory Exam Respiratory Exam: NORMAL BREATHING PATTERN, UNREMARKABLE - Cardiovascular Exam Cardiovascular Exam: +S1, +S2 - GI/Abdominal Exam GI & Abdominal Exam: Normal Bowel Sounds - Extremities Exam Extremities exam: full ROM, normal inspection - Neurological Exam Neurological exam: Alert, CN II-XII Intact, Oriented x3 - Psychiatric Exam Psychiatric exam: Flat Affect - Skin Skin Exam: Dry, Intact, Normal Color, Warm Discharge Plan - Discharge Medications Prescriptions: Albuterol 0.042% [Albuterol 0.042% Inhal Lilian (1.25mg/3ml) UD] 3 ml IH Q6 PRN #1 lilian PRN Reason: Shortness Of Breath Albuterol HFA [Ventolin HFA 90 mcg/actuation (8 g)] 1 puff IH Q6 PRN #1 inhaler PRN Reason: Shortness Of Breath Metoclopramide [Reglan] 10 mg SC Q8H #20 vial Pantoprazole [Protonix Inj] 40 mg PO DAILY #30 vial - Follow Up Plan Condition: STABLE Disposition: HOME/ ROUTINE Instructions: Gastritis (DC), Gastroparesis (DC) Additional Instructions: PT instructed to eat six small meals a day. PT discharged home. Instructed to follow up with primary doctor in two weeks. PT instructed to follow up with GI doctor as needed. PT instructed to return to ED if PT experiences any pain, unrelenting nausea/vomiting, vertigo, shortness of breath, chest pain. Referrals: Basia Mohr MD [Primary Care Provider] - Follow up with primary <Clarita Gramajo - Last Filed: 03/02/17 16:45> Provider - Provider Date of Admission: 02/26/17 16:02 Attending physician: Clarita Gramajo MD Primary care physician: Basia Mohr MD Hospital Course - Lab Results Lab Results: Most Recent Lab Values WBC 9.3 10^3/ul (4.5-11.0) D 03/02/17 07:00 RBC 4.61 10^6/uL (3.5-6.1) 03/02/17 07:00 Hgb 12.3 gm/dL (12.0-16.0) 03/02/17 07:00 Hct 37.3 % (36.0-48.0) 03/02/17 07:00 MCV 80.9 fL (80.0-105.0) 03/02/17 07:00 MCH 26.7 pg (25.0-35.0) 03/02/17 07:00 MCHC 33.0 g/dl (31.0-37.0) 03/02/17 07:00 RDW 14.1 % (11.5-14.5) 03/02/17 07:00 Plt Count 295 10^3/uL (120.0-450.0) 03/02/17 07:00 MPV 10.1 fl (7.0-11.0) 03/02/17 07:00 Gran % 71.0 % (50.0-68.0) H 03/02/17 07:00 Lymph % (Auto) 19.7 % (22.0-35.0) L 03/02/17 07:00 [place] % (Auto) 6.6 % (1.0-6.0) H 03/02/17 07:00 Eos % (Auto) 2.3 % (1.5-5.0) 03/02/17 07:00 Baso % (Auto) 0.4 % (0.0-3.0) 03/02/17 07:00 Gran # 6.57 (1.4-6.5) H 03/02/17 07:00 Lymph # 1.8 (1.2-3.4) 03/02/17 07:00 Mil[place] # 0.6 (0.1-0.6) 03/02/17 07:00 Eos # 0.2 (0.0-0.7) 03/02/17 07:00 Baso # 0.04 K/mm3 (0.0-2.0) 03/02/17 07:00 PT 11.2 Seconds (9.9-11.8) 02/25/17 16:00 INR 1.04 (0.93-1.08) 02/25/17 16:00 APTT 27.7 Seconds (23.7-30.8) 02/25/17 16:00 Sodium 139 mmol/L (132-148) 03/02/17 07:00 Potassium 4.1 mmol/L (3.6-5.0) 03/02/17 07:00 Chloride 104 mmol/L (98-107) 03/02/17 07:00 Carbon Dioxide 22 mmol/L (21-33) 03/02/17 07:00 Anion Gap 17 (10-20) 03/02/17 07:00 BUN 10 mg/dL (7-21) 03/02/17 07:00 Creatinine 1.1 mg/dL (0.5-1.4) 03/02/17 07:00 Est GFR ( Amer) > 60 03/02/17 07:00 Est GFR (Non-Af Amer) 52 03/02/17 07:00 Random Glucose 85 mg/dL (70-110) 03/02/17 07:00 Lactic Acid 1.7 mmol/L (0.7-2.1) 02/28/17 11:51 Calcium 9.9 mg/dL (8.4-10.5) 03/02/17 07:00 Phosphorus 4.7 mg/dL (2.5-4.5) H 03/02/17 07:00 Magnesium 1.7 mg/dL (1.7-2.2) 03/02/17 07:00 Total Bilirubin 0.5 mg/dL (0.2-1.3) 03/02/17 07:00 AST 26 U/L (15-39) 03/02/17 07:00 ALT 28 U/L (7-56) 03/02/17 07:00 Alkaline Phosphatase 49 U/L (38-133) 03/02/17 07:00 C-React Prot High Sens 3.16 mg/L (1.00-3.00) H 02/28/17 11:51 Total Protein 7.8 g/dL (5.8-8.3) 03/02/17 07:00 Albumin 4.4 g/dL (3.0-4.8) 03/02/17 07:00 Globulin 3.4 gm/dL 03/02/17 07:00 Albumin/Globulin Ratio 1.3 (1.1-1.8) 03/02/17 07:00 Lipase 26 U/L (23-300) 02/25/17 16:00 Urine Color Yellow (YELLOW) 02/25/17 17:02 Urine Appearance Cloudy (CLEAR) 02/25/17 17:02 Urine pH 6.5 (4.7-8.0) 02/25/17 17:02 Ur Specific [place] 1.010 (1.005-1.035) 02/25/17 17:02 Urine Protein 30 mg/dL (<30 mg/dL) H 02/25/17 17:02 Urine Glucose (UA) Negative mg/dL (NEGATIVE) 02/25/17 17:02 Urine Ketones Negative mg/dL (NEGATIVE) 02/25/17 17:02 Urine Blood Negative (NEGATIVE) 02/25/17 17:02 Urine Nitrate Positive (NEGATIVE) H 02/25/17 17:02 Urine Bilirubin Negative (NEGATIVE) 02/25/17 17:02 Urine Urobilinogen 0.2 E.U./dL (<1 E.U./dL) 02/25/17 17:02 Ur Leukocyte Esterase Small Ameya/uL (NEGATIVE) H 02/25/17 17:02 Urine RBC 0 - 2 /hpf (0-2) 02/25/17 17:02 Urine WBC 10 - 15 /hpf (0-6) 02/25/17 17:02 Ur Epithelial Cells Many /hpf (0-5) 02/25/17 17:02 Urine Bacteria Many (NEG) 02/25/17 17:02 Attending/Attestation - Attestation I have personally seen and examined this patient.: Yes I have fully participated in the care of the patient.: Yes I have reviewed all pertinent clinical information, including history, physical exam and plan: Yes Notes (Text): 03/02/17 16:42 Attending note; Patient seen and examined with resident. Patient is a 51-year-old female admitted with gastroparesis. Treated with Reglan. GI evaluation with DR. moore appreciated. Currently tolerating regular diet. Advised to take small frequent meals. Patient also trying to get domperidone. Follow-up with PMD Dr. cano. Follow-up with GI . Diagnosis; Gastroparesis Parkinson's Anxiety COPD Hypothyroidism 03/02/17 16:45
== END 2017-03-02 16:08 | disposition home or self-care (01) | DRG 182 ==
LOC: ED 14:39 → EROBSV 15:45 → ERH 21:06 → 3RNO 22:38 → OBSVTOIN 02-26 16:02
PROVIDERS: ADMIT Internal Medicine; ATTEND Internal Medicine
DX: K31.84 Gastroparesis (principal); N39.0 Urinary tract infection, site not specified; G20 Parkinson's disease; K56.7 Ileus, unspecified; J44.9 Chronic obstructive pulmonary disease, unspecified; I10 Essential (primary) hypertension; Z79.51 Long term (current) use of inhaled steroids; F41.9 Anxiety disorder, unspecified; E03.9 Hypothyroidism, unspecified; B96.20 Unspecified Escherichia coli [E. coli] as the cause of diseases classified elsewhere; E86.0 Dehydration; G25.81 Restless legs syndrome; I73.00 Raynaud's syndrome without gangrene; K21.9 Gastro-esophageal reflux disease without esophagitis; K29.00 Acute gastritis without bleeding; M81.0 Age-related osteoporosis without current pathological fracture; Z79.83 Long term (current) use of bisphosphonates; Z79.899 Other long term (current) drug therapy; Z80.8 Family history of malignant neoplasm of other organs or systems; Z82.49 Family history of ischemic heart disease and other diseases of the circulatory system; Z83.3 Family history of diabetes mellitus; Z87.891 Personal history of nicotine dependence; Z90.49 Acquired absence of other specified parts of digestive tract; Z90.710 Acquired absence of both cervix and uterus; Z98.51 Tubal ligation status; Z87.898 Personal history of other specified conditions; R42 Dizziness and giddiness; D64.9 Anemia, unspecified; F32.89 Other specified depressive episodes; K27.9 Peptic ulcer, site unspecified, unspecified as acute or chronic, without hemorrhage or perforation

== ENCOUNTER 2017-03-14 03:38 | Inpatient (IN) | payer MEDICAID ==
[2017-03-14 03:49] VITALS: BMI 23.8
[2017-03-14] MEDS ORDERED: Morphine 2 mg/ml ISec IVP STA (03:59)
[2017-03-14] MEDS ORDERED: Pantoprazole 40 MG in Sodium Chloride 0.9% 100 ML IV STA (03:59)
[2017-03-14] MEDS ORDERED: Sodium Chloride 0.9% 1,000 ML IV STA (03:59)
--- NOTE | 2017-03-14 04:00 | ED PDOC ---
Arrival/HPI - General Chief Complaint: Abdominal Pain Time Seen by Provider: 03/14/17 03:42 Historian: Patient - History of Present Illness Narrative History of Present Illness (Text): 03/14/17 03:57 Shanti Barnes is a 51 year old female, whose past medical history includes gastroparesis, chronic constipation, Raynaud's disease, Parkinson's disease, and COPD, who presents to the Emergency department complaining of upper abdominal pain tonight. Patient reports associated nausea, vomiting, and light-headedness. Patient states symptoms are similar in quality to previous episode of abdominal pain 2 weeks ago for which she was seen in the Emergency department on 02/25/2017 and admitted to the hospital for further evaluation. Patient denies any fever, chills, chest pain, shortness of breath, vomiting, diarrhea, urinary symptoms, back pain, neck pain, headache, dizziness, or any other complaints. Time/Duration: Other (tonight) Symptom Onset: Gradual Symptom Course: Unchanged Activities at Onset: Rest, Light Context: Home Past Medical History - Provider Review Nursing Documentation Reviewed: Yes - Infectious Disease Hx of Infectious Diseases: None - Tetanus Immunization Tetanus Immunization: Unknown - Cardiac Hx Hypertension: Yes - Pulmonary Hx Chronic Obstructive Pulmonary Disease (COPD): Yes - Neurological Hx Neurological Disorder: Yes Hx Dizziness: Yes Hx Parkinson's Disease: Yes - HEENT Hx HEENT Disorder: Yes (TONSILLECTOMY) - Renal Hx Renal Disorder: No - Endocrine/Metabolic Hx Hypothyroidism: Yes - Hematological/Oncological Hx Blood Disorders: Yes Hx Anemia: Yes - Integumentary Hx Dermatological Disorder: No - Musculoskeletal/Rheumatological Hx Musculoskeletal Disorders: Yes Hx Falls: Yes - Gastrointestinal Hx Gastrointestinal Disorders: Yes (APPENDECTOMY,GASTRITIS,GASTROPARESIS, GASTROENTERITIS,) Hx Gastroesophageal Reflux: Yes - Genitourinary/Gynecological Hx Genitourinary Disorders: No (TUBAL LIGATION,HYSTERECTOMY) - Psychiatric Hx Psychophysiologic Disorder: Yes (RX DRUG ABUSE,ETOH ABUSE,SMOKED CIGARETTES QUIT 2 YRS AGO) Hx Anxiety: Yes Hx Depression: Yes Hx Substance Use: Yes (RX DRUG ABUSE) Other/Comment: ANEMIA - Surgical History Hx Appendectomy: Yes Hx Hysterectomy: Yes Other/Comment: tubal ligation - Anesthesia Hx Anesthesia: Yes Hx Anesthesia Reactions: No Hx Malignant Hyperthermia: No - Suicidal Assessment Feels Threatened In Home Enviroment: No Family/Social History - Physician Review Nursing Documentation Reviewed: Yes Family/Social History: Unknown Family HX Smoking Status: Former Smoker Hx Alcohol Use: Yes Hx Substance Use: Yes (RX DRUG ABUSE) Hx Substance Use Treatment: No Allergies/Home Meds Allergies/Adverse Reactions: Allergies No Known Allergies Allergy (Verified 03/14/17 03:58) Home Medications: Home Meds Medication Instructions Recorded Confirmed Alendronate [Fosamax] 70 mg PO QWK 07/01/16 03/14/17 Atorvastatin [Lipitor] 20 mg PO DAILY 07/01/16 03/14/17 Fluticasone/Salmeterol 250/50 1 puff IH BID 07/01/16 03/14/17 [Advair Diskus 250/50] Ergocalciferol [Drisdol 50,000 50,000 units PO DAILY 11/03/16 03/14/17 Intl Units Cap] Escitalopram [Lexapro] 10 mg PO DAILY 11/03/16 03/14/17 Tiotropium [place] Inhaler 1 puff INH DAILY 11/03/16 03/14/17 [Spiriva Inhalation Handihaler Device] Review of Systems - Physician Review All systems were reviewed & negative as marked: Yes - Review of Systems Constitutional: Normal. absent: Fevers Eyes: Normal ENT: Normal Respiratory: Normal. absent: SOB, Cough Cardiovascular: Normal. absent: Chest Pain Gastrointestinal: Abdominal Pain, Nausea, Vomiting. absent: Diarrhea Genitourinary Female: Normal. absent: Dysuria, Frequency, Hematuria, Urine Output Changes Musculoskeletal: Normal. absent: Neck Pain Skin: Normal. absent: Rash Neurological: Normal. absent: Headache, Dizziness Endocrine: Normal Hemo/Lymphatic: Normal Psychiatric: Normal Physical Exam Vital Signs Reviewed: Yes Vital Signs Temp Pulse Resp BP Pulse Ox 03/14/17 06:19 88 18 146/86 99 03/14/17 03:51 98.1 F 95 H 18 152/99 H 97 Temperature: Afebrile Blood Pressure: Normal Pulse: Regular Respiratory Rate: Normal Appearance: Positive for: Well-Appearing, Non-Toxic, Comfortable Pain Distress: None Mental Status: Positive for: Alert and Oriented X 3 - Systems Exam Head: Present: Atraumatic, Normocephalic Pupils: Present: PERRL Extroacular Muscles: Present: EOMI Conjunctiva: Present: Normal Mouth: Present: Moist Mucous Membranes Neck: Present: Normal Range of Motion Respiratory/Chest: Present: Clear to Auscultation, Good Air Exchange. No: Respiratory Distress, Accessory Muscle Use Cardiovascular: Present: Regular Rate and Rhythm, Normal S1, S2. No: Murmurs Abdomen: Present: Tenderness (LUQ tenderness), Normal Bowel Sounds. No: Distention, Peritoneal Signs Upper Extremity: Present: Normal Inspection. No: Cyanosis, Edema Lower Extremity: Present: Normal Inspection. No: Edema Neurological: Present: GCS=15, CN II-XII Intact, Speech Normal Skin: Present: Warm, Dry, Normal Color. No: Rashes Psychiatric: Present: Alert, Oriented x 3, Normal Insight, Normal Concentration Medical Decision Making ED Course and Treatment: 03/14/17 03:57 Impression: 51 year old female complaining of upper abdominal pain, nausea, vomiting, and light-headedness. Plan: -- CT Abdomen and Pelvis w/o contrast -- EKG -- Labs, VBG, amylase, lipase, cardiac enzymes, blood cultures -- Urinalysis -- IV fluids -- Zofran -- Protonix -- Morphine -- Reassess and disposition Prior Visits: Notes and results from previous visits were reviewed. On 02/25/2017, pt was seen in the Emergency department for mid abdominal pain with nausea, vomiting, constipation, belching, and decreased PO intake. Pt was admitted to the hospital for further evaluation. Progress Notes: 03/14/17 04:30 Reviewed EKG, NSR at [address]-segment elevations or depressions, no T-wave inversions, normal intervals. 03/14/17 05:[address] Hernandez, who is aware and agrees with plan. Accepts pt in to hospitalist service. Pt will go to [facility] observation for abdominal pain. Pt is no acute distress. Discussed results and hospital observation plan with pt , who is aware and verbalizes agreement. - Lab Interpretations Microbiology Results: Microbiology Results 03/14/17 04:00 Blood-Venous Blood Culture - Preliminary NO GROWTH AFTER 24 HOURS 03/14/17 03:30 Blood-Venous Blood Culture - Preliminary NO GROWTH AFTER 24 HOURS Lab Results: 03/15/17 06:45 03/15/17 06:45 Lab Results 03/15/17 06:45: Sodium 138, Chloride 101, Potassium 4.2, Carbon Dioxide 27, Anion Gap 14, BUN 6 L, Creatinine 1.0, Est GFR ( Amer) > 60, Est GFR (Non -Af Amer) 58, Random Glucose 86, Calcium 9.4, Total Bilirubin 0.6, AST 33, ALT 22, Alkaline Phosphatase 58, Total Protein 7.4, Albumin 4.3, Globulin 3.2, Albumin/Globulin Ratio 1.3 03/15/17 06:45: WBC 7.2 D, RBC 4.39, Hgb 11.3 L, Hct 36.0, MCV 82.0, MCH 25.7, MCHC 31.4, RDW 14.3, Plt Count 311, MPV 9.9, Gran % 53.7, Lymph % (Auto) 33.9, [place] % (Auto) 8.6 H, Eos % (Auto) 3.2, Baso % (Auto) 0.6, Gran # 3.87, Lymph # 2.4, [place] # 0.6, Eos # 0.2, Baso # 0.04 03/14/17 04:00: pO2 56 H, VBG pH 7.37, VBG pCO2 46.0, VBG HCO3 26.6, VBG Total CO2 28.0, VBG O2 Sat (Calc) 91.6 H, VBG Base Excess 0.8, VBG Potassium 3.6, Sodium 139.0, Chloride 103.0, Glucose 98, Lactate 1.0, FiO2 21.0, Venous Blood Potassium 3.6 03/14/17 04:00: Sodium 139, Chloride 103, Potassium 3.4 L, Carbon Dioxide 23, Anion Gap 16, BUN 10, Creatinine 1.0, Est GFR ( Amer) > 60, Est GFR (Non- Af Amer) 58, Random Glucose 94, Calcium 9.6, Total Bilirubin 0.3, AST 31, ALT 16 , Alkaline Phosphatase 48, Lactate Dehydrogenase 408, Total Creatine Kinase 70, Troponin I < 0.01, Total Protein 7.7, Albumin 4.4, Globulin 3.3, Albumin/ Globulin Ratio 1.3, Amylase 136 H, Lipase 59 03/14/17 04:00: Urine Color Yellow, Urine Appearance Clear, Urine pH 7.0, Ur Specific [place] 1.010, Urine Protein Negative, Urine Glucose (UA) Negative, Urine Ketones Negative, Urine Blood Negative, Urine Nitrate Negative, Urine Bilirubin Negative, Urine Urobilinogen 0.2, Ur Leukocyte Esterase Negative 03/14/17 04:00: PT 10.5, INR 0.97, APTT 24.8 03/14/17 04:00: WBC 10.4, RBC 3.95, Hgb 10.2 L, Hct 31.9 L, MCV 80.8, MCH 25.8, MCHC 32.0, RDW 14.0, Plt Count 284, MPV 9.9, Gran % 69.4 H, Lymph % (Auto) 22.9 , [place] % (Auto) 6.1 H, Eos % (Auto) 1.4 L, Baso % (Auto) 0.2, Gran # 7.19 H, Lymph # 2.4, [place] # 0.6, Eos # 0.1, Baso # 0.02 I have reviewed the lab results: Yes - RAD Interpretation Radiology Orders: 03/14/17 03:59 ABD & PELVIS W/O PO OR IV CONT [CT] Stat Outsole Beveler: Radiologist - EKG Interpretation Interpreted by ED Physician: Yes Type: 12 lead EKG - Medication Orders Current Medication Orders: Acetaminophen (Tylenol 325mg Tab) 650 mg PO Q6H PRN PRN Reason: Pain, moderate (4-7) Last Admin: 03/15/17 13:22 Dose: 650 mg Re-Assess: MAR Pain/Vitals Document 03/15/17 14:22 TAV (Rec: 03/15/17 18:02 TAV [id number]) Pain Reassessment Is This A Pain ReAssessment? Yes Presence of Pain Presence of Pain No Pain Scale Used Pain Scale Used Numeric Location Pain Location Body Site Abdomen Description Constant Intensity 9 Pain Behavior Guarding Irritability Aggravating Factors Changing Position Aggravating Factors Changing Position Albuterol Sulfate (Albuterol 0.042% Inhal Lilian (1.25mg/3ml) Ud) 1.25 mg IH Q6 PRN PRN Reason: Shortness of Breath Arformoterol Tartrate (Brovana) 15 mcg IH [id number] MARIALUISA Budesonide (Pulmicort Respules) 0.5 mg IH [id number] MARIALUISA Last Admin: 03/15/17 19:55 Dose: 0.5 mg Carbidopa/Levodopa (Sinemet) 1 tab PO TID MARIALUISA Last Admin: 03/15/17 18:01 Dose: 1 tab Lactated Ringer's (Lactated Ringer's) 1,000 mls @ 100 mls/hr IV .Q10H [facility] Last Admin: 03/15/17 13:38 Dose: 100 mls/hr Erythromycin 170 mg/ Sodium (Chloride) 100 mls @ 100 mls/hr IVPB Q8 [facility] Last Admin: 03/15/17 23:45 Dose: 100 mls/hr Lactulose (Enulose) 10 gm PO TID [facility] Last Admin: 03/15/17 18:01 Dose: 10 gm Ondansetron HCl (Zofran Inj) 4 mg IVP Q4H PRN PRN Reason: Nausea/Vomiting Last Admin: 03/15/17 20:48 Dose: 4 mg Pantoprazole Sodium (Protonix Inj) 40 mg IVP DAILY [facility] Last Admin: 03/15/17 10:18 Dose: 40 mg Polyethylene Glycol (Miralax) 17 gm PO BID [facility] Last Admin: 03/15/17 18:01 Dose: 17 gm Sodium Phosphate (Fleet Enema) 135 ml RC Q8 [facility] Last Admin: 03/15/17 21:30 Dose: 135 ml Tiotropium [place] (Spiriva) 18 mcg INH DAILY [facility] Last Admin: 03/14/17 10:13 Dose: 18 mcg Discontinued Medications Carbidopa/Levodopa (Sinemet) 1 tab PO TID [facility] Last Admin: 03/14/17 17:18 Dose: 1 tab Carbidopa/Levodopa (Sinemet) 1 tab PO ONCE ONE Stop: 03/15/17 10:41 Last Admin: 03/15/17 10:47 Dose: 1 tab Pantoprazole Sodium 40 mg/ (Sodium Chloride) 100 mls @ 400 mls/hr IV STAT STA Stop: 03/14/17 04:13 Last Admin: 03/14/17 04:26 Dose: 400 mls/hr Sodium Chloride (Sodium Chloride 0.9%) 1,000 mls @ 100 mls/hr IV .Q10H STA Stop: 03/14/17 13:58 Last Admin: 03/14/17 04:22 Dose: 100 mls/hr Erythromycin 170 mg/ Sodium (Chloride) 100 mls @ 100 mls/hr IVPB STAT STA Stop: 03/15/17 16:05 Last Admin: 03/15/17 17:43 Dose: 100 mls/hr Metoclopramide HCl (Reglan) 5 mg IVP ACHS MARIALUISA Last Admin: 03/15/17 10:32 Dose: 5 mg Morphine Sulfate (Morphine) 2 mg IVP STAT STA Stop: 03/14/17 04:00 Last Admin: 03/14/17 04:20 Dose: 2 mg Morphine Sulfate (Morphine) Confirm Administered Dose 2 mg .ROUTE .STK-MED ONE Stop: 03/14/17 04:18 Last Admin: 03/14/17 04:28 Dose: Morphine Sulfate (Morphine) 1 mg IVP ONCE ONE Stop: 03/14/17 09:16 Last Admin: 03/14/17 10:14 Dose: 1 mg Re-Assess: MAR Pain Assessment Document 03/14/17 11:14 SD (Rec: 03/14/17 11:41 SD [id number]) Pain Reassessment Is this a pain reassessment? Yes Sleep Is patient sleeping during reassessment? Yes Ondansetron HCl (Zofran Inj) 4 mg IVP STAT STA Stop: 03/14/17 04:00 Last Admin: 03/14/17 04:19 Dose: 4 mg Ondansetron HCl (Zofran Inj) Confirm Administered Dose 4 mg .ROUTE .STK-MED ONE Stop: 03/14/17 04:19 Last Admin: 03/14/17 04:28 Dose: Pantoprazole Sodium (Protonix Inj) Confirm Administered Dose 40 mg .ROUTE .STK- MED ONE Stop: 03/14/17 04:28 Last Admin: 03/14/17 04:28 Dose: Potassium Chloride (K-Dur 20 Meq Er Tab) 40 meq PO STAT STA Stop: 03/14/17 06:45 Last Admin: 03/14/17 06:53 Dose: 40 meq Sodium Phosphate (Fleet Enema) 135 ml RC ONCE ONE Stop: 03/14/17 09:17 Last Admin: 03/14/17 10:13 Dose: 135 ml Tramadol HCl (Ultram) 50 mg PO STAT STA Stop: 03/14/17 19:47 Last Admin: 03/14/17 20:06 Dose: 50 mg Zolpidem Tartrate (Ambien) 5 mg PO HS ONE PRN Reason: Protocol Stop: 03/14/17 19:47 Last Admin: 03/14/17 23:00 Dose: 5 mg Zolpidem Tartrate (Ambien) 5 mg PO STAT STA PRN Reason: Protocol Stop: 03/15/17 23:30 Last Admin: 03/15/17 23:44 Dose: 5 mg - Aixaibchristiano Statement The provider has reviewed the documentation as recorded by the Aixaibchristiano Blackburn All medical record entries made by the Aixaibchristiano were at my direction and personally dictated by me. I have reviewed the chart and agree that the record accurately reflects my personal performance of the history, physical exam, medical decision making, and the department course for this patient. I have also personally directed, reviewed, and agree with the discharge instructions and disposition. Disposition/Present on Arrival - Present on Arrival Any Indicators Present on Arrival: No History of DVT/PE: No History of Uncontrolled Diabetes: No Urinary Catheter: No History of Decub. Ulcer: No History Surgical Site Infection Following: None - Disposition Have Diagnosis and Disposition been Completed?: Yes Diagnosis: Gastroparesis, Intractable abdominal pain Disposition: HOSPITALIZED Disposition Time: 05:35 Condition: FAIR
[2017-03-14] MEDS ORDERED: Morphine 2 mg/ml ISec ONE (04:17)
[2017-03-14 04:29] LABS: ADD MANUAL DIFF? NO
[2017-03-14 04:38] LABS: VENOUS BLOOD GAS BASE EXCESS 0.8 mmol/L (0.0-2.0); VENOUS BLOOD PH 7.37 (7.32-7.43)
[2017-03-14 04:39] LABS: BASO # 0.02 K/mm3 (0.0-2.0); BASO % 0.2 % (0.0-3.0); EOS # 0.1 (0.0-0.7); EOS % 1.4 % (1.5-5.0); GRAN # 7.19 (1.4-6.5); GRAN % 69.4 % (50.0-68.0); HEMATOCRIT 31.9 % (36.0-48.0); LYMPH # 2.4 (1.2-3.4); LYMPH % 22.9 % (22.0-35.0); MEAN CELL VOLUME 80.8 fL (80.0-105.0); MEAN CORPUSCULAR HEMOGLOBIN 25.8 pg (25.0-35.0); MEAN PLATELET VOLUME 9.9 fl (7.0-11.0); MONO # 0.6 (0.1-0.6); MONO % 6.1 % (1.0-6.0); PLATELET COUNT 284 10^3/uL (120.0-450.0); URINE BILIRUBIN NEGATIVE (NEGATIVE); URINE BLOOD NEGATIVE (NEGATIVE); URINE GLUCOSE (UA) NEGATIVE (NEGATIVE); URINE KETONE NEGATIVE (NEGATIVE); URINE LEUKOCYTE ESTERASE NEGATIVE Leu/uL (NEGATIVE); URINE PROTEIN NEGATIVE mg/dL (<30 mg/dL); URINE UROBILINOGEN 0.2 E.U./dL (<1 E.U./dL); WHITE BLOOD COUNT 10.4 10^3/ul (4.5-11.0)
[2017-03-14 04:40] LABS: URINE APPEARANCE CLEAR (CLEAR); URINE COLOR YELLOW (YELLOW)
[2017-03-14 04:41] LABS: ALB/GLOB RATIO 1.3 (1.1-1.8); ALKALINE PHOSPHATASE 48 U/L (38-133); ALT/SGPT 16 U/L (7-56); AMYLASE 136 U/L (35-125); AST/SGOT 31 U/L (15-39); BILIRUBIN,TOTAL 0.3 mg/dL (0.2-1.3); BLOOD UREA NITROGEN 10 mg/dL (7-21); CALCIUM 9.6 mg/dL (8.4-10.5); CARBON DIOXIDE 23 mmol/L (21-33); CHLORIDE 103 mmol/L (98-107); GFR AFRICAN-AMERICAN > 60; GLUCOSE,RANDOM 94 mg/dL (70-110); LIPASE 59 U/L (23-300); POTASSIUM 3.4 mmol/L (3.6-5.0); SODIUM 139 mmol/L (132-148); TOTAL PROTEIN 7.7 g/dL (5.8-8.3)
[2017-03-14 04:43] LABS: INR 0.97 (0.93-1.08); PARTIAL THROMBOPLASTIN TIME 24.8 Seconds (23.7-30.8)
[2017-03-14 04:59] LABS: TROPONIN I < 0.01 ng/mL
[2017-03-14] MEDS ORDERED: Albuterol 0.042% Inhal Sol (1.25 mg/3 mL) UD IH PRN (05:54)
--- NOTE | 2017-03-14 06:00 | CP.PCM.HP ---
History of Present Illness - History of Present Illness History of Present Illness: cc: abdominal pain HPI: Patient is a 51yo female with past medical history of COPD, hypertension, hypothyroidism, restless leg syndrome, gastroparesis, anxiety, parkinsons disease and osteoporosis who presenting c/o abdominal pain. She reported that the abdominal pain localizes to the epigastric and is associated with nausea however denies vomiting. She reports that her last bowel movement was on Wednesday and at that time was regular. She states she has had good appetite on Wednesday and that the pain started in the afternoon around 1pm. She had been to [facility] 2 weeks prior for the same symptoms. A CT abd/pelvis done at that time was concerning for a mild ileus. Repeat CT abd/pelvis is presently pending. She denies chest pain, palpitations, SOB, vomiting, fever, chills, cough. 12point ROS as per HPI above, otherwise negative PMHx: COPD, HTN, Restless leg syndrome, Gastroparesis, Anxiety, Osteoporosis, Parkinsons PSHx: Hysterectomy 2014, Appendectomy, Tonsillectomy Allergies: NKDA Family Hx: CAD, DM on both maternal and paternal first degree relatives; Grandfather: oral cancer Social Hx: Former tobacco use (quit 2 yrs prior, 1/2ppd); Occasional alcohol use ; Denies illicit drug use; lives with fiance Present on Admission - Present on Admission Any Indicators Present on Admission: No Past Patient History - Infectious Disease Hx of Infectious Diseases: None - Tetanus Immunizations Tetanus Immunization: Unknown - Past Social History Smoking Status: Former Smoker - CARDIAC Hx Hypertension: Yes - PULMONARY Hx Chronic Obstructive Pulmonary Disease (COPD): Yes - NEUROLOGICAL Hx Neurological Disorder: Yes Hx Dizziness: Yes Hx Parkinson's Disease: Yes - HEENT Hx HEENT Problems: Yes (TONSILLECTOMY) - RENAL Hx Chronic Kidney Disease: No - ENDOCRINE/METABOLIC Hx Hypothyroidism: Yes - HEMATOLOGICAL/ONCOLOGICAL Hx Blood Disorders: Yes Hx Anemia: Yes - INTEGUMENTARY Hx Dermatological Problems: No - MUSCULOSKELETAL/RHEUMATOLOGICAL Hx Musculoskeletal Disorders: Yes Hx Falls: Yes - GASTROINTESTINAL Hx Gastrointestinal Disorders: Yes (APPENDECTOMY,GASTRITIS,GASTROPARESIS, GASTROENTERITIS,) Hx Gastroesophageal Reflux: Yes - GENITOURINARY/GYNECOLOGICAL Hx Genitourinary Disorders: No (TUBAL LIGATION,HYSTERECTOMY) - PSYCHIATRIC Hx Psychophysiologic Disorder: Yes (RX DRUG ABUSE,ETOH ABUSE,SMOKED CIGARETTES QUIT 2 YRS AGO) Hx Anxiety: Yes Hx Depression: Yes Hx Substance Use: Yes (RX DRUG ABUSE) Other/Comment: ANEMIA - SURGICAL HISTORY Hx Appendectomy: Yes Hx Hysterectomy: Yes Other/Comment: tubal ligation - ANESTHESIA Hx Anesthesia: Yes Hx Anesthesia Reactions: No Hx Malignant Hyperthermia: No Meds Allergies/Adverse Reactions: Allergies Allergy/AdvReac Type Severity Reaction Status Date / Time No Known Allergies Allergy Verified 03/14/17 03:58 Physical Exam - Constitutional Appears: Non-toxic, No Acute Distress - Head Exam Head Exam: ATRAUMATIC, NORMAL INSPECTION, NORMOCEPHALIC - Eye Exam Eye Exam: EOMI, PERRL - ENT Exam ENT Exam: Mucous Membranes Moist - Neck Exam Neck exam: Positive for: Normal Inspection - Respiratory Exam Respiratory Exam: Clear to Auscultation Bilateral. absent: Rales, Rhonchi, Wheezes - Cardiovascular Exam Cardiovascular Exam: RRR, +S1, +S2. absent: Gallop, Rubs, Systolic Murmur - GI/Abdominal Exam GI & Abdominal Exam: Distended, Soft, Tenderness (epigastric tenderness). absent: Firm, Guarding, Rebound - Extremities Exam Extremities exam: Positive for: normal inspection. Negative for: calf tenderness, pedal edema, tenderness - Back Exam Back exam: NORMAL INSPECTION - Neurological Exam Neurological exam: Alert, Oriented x3 Additional comments: bilateral hand tremors - Psychiatric Exam Psychiatric exam: Normal Affect, Normal Mood - Skin Skin Exam: Dry, Intact, Normal Color, Warm Results - Vital Signs Recent Vital Signs: Last Vital Signs Temp 98.1 F 03/14/17 03:51 Pulse 95 H 03/14/17 03:51 Resp 18 03/14/17 03:51 BP 152/99 H 03/14/17 03:51 Pulse Ox 97 03/14/17 03:51 - Labs Result Diagrams: 03/14/17 04:00 03/14/17 04:00 Labs: Laboratory Results - last 24 hr 03/14/17 03/14/17 03/14/17 04:00 04:00 04:00 WBC 10.4 RBC 3.95 Hgb 10.2 L Hct 31.9 L MCV 80.8 MCH 25.8 MCHC 32.0 RDW 14.0 Plt Count 284 MPV 9.9 Gran % 69.4 H Lymph % (Auto) 22.9 [place] % (Auto) 6.1 H Eos % (Auto) 1.4 L Baso % (Auto) 0.2 Gran # 7.19 H Lymph # 2.4 [place] # 0.6 Eos # 0.1 Baso # 0.02 PT 10.5 INR 0.97 APTT 24.8 pO2 VBG pH VBG pCO2 VBG HCO3 VBG Total CO2 VBG O2 Sat (Calc) VBG Base Excess VBG Potassium Sodium Chloride Glucose Lactate FiO2 Potassium Carbon Dioxide Anion Gap BUN Creatinine Est GFR ( Amer) Est GFR (Non-Af Amer) Random Glucose Calcium Total Bilirubin AST ALT Alkaline Phosphatase Lactate Dehydrogenase Total Creatine Kinase Troponin I Total Protein Albumin Globulin Albumin/Globulin Ratio Amylase Lipase Venous Blood Potassium Urine Color Yellow Urine Appearance Clear Urine pH 7.0 Ur Specific [place] 1.010 Urine Protein Negative Urine Glucose (UA) Negative Urine Ketones Negative Urine Blood Negative Urine Nitrate Negative Urine Bilirubin Negative Urine Urobilinogen 0.2 Ur Leukocyte Esterase Negative 03/14/17 03/14/17 04:00 04:00 WBC RBC Hgb Hct MCV MCH MCHC RDW Plt Count MPV Gran % Lymph % (Auto) [place] % (Auto) Eos % (Auto) Baso % (Auto) Gran # Lymph # [place] # Eos # Baso # PT INR APTT pO2 56 H VBG pH 7.37 VBG pCO2 46.0 VBG HCO3 26.6 VBG Total CO2 28.0 VBG O2 Sat (Calc) 91.6 H VBG Base Excess 0.8 VBG Potassium 3.6 Sodium 139 139.0 Chloride 103 103.0 Glucose 98 Lactate 1.0 FiO2 21.0 Potassium 3.4 L Carbon Dioxide 23 Anion Gap 16 BUN 10 Creatinine 1.0 Est GFR ( Amer) > 60 Est GFR (Non-Af Amer) 58 Random Glucose 94 Calcium 9.6 Total Bilirubin 0.3 AST 31 ALT 16 Alkaline Phosphatase 48 Lactate Dehydrogenase 408 Total Creatine Kinase 70 Troponin I < 0.01 Total Protein 7.7 Albumin 4.4 Globulin 3.3 Albumin/Globulin Ratio 1.3 Amylase 136 H Lipase 59 Venous Blood Potassium 3.6 Urine Color Urine Appearance Urine pH Ur Specific [place] Urine Protein Urine Glucose (UA) Urine Ketones Urine Blood Urine Nitrate Urine Bilirubin Urine Urobilinogen Ur Leukocyte Esterase Assessment & Plan - Assessment and Plan (Free Text) Plan: 51yo female with history of COPD, hypertension, hypothyroidism, restless leg syndrome, gastroparesis, anxiety, and osteoporosis who presenting c/o abdominal pain 1. Abdominal pain -CT abd/pelvis from 2 weeks prior revealed mild ileus -Abd US and HIDA scan done on prior admission were negative for GB pathology -Lipase within normal limits -Repeat Abd/pelvis CT still pending read -Zofran 4mg q4h PRN for nausea/vomiting -Strict NPO -Surgery consult - Dr. Driver -IVF hydration with NS @ 100cc/hr 2. COPD -Continue home inhalers 3. Hypothyroidism/Parkinsons/Hypertension/Anxiety/osteoporosis -Oral medications held at this time pending advancement of diet per surgical recommendations 4. GI/DVT -Protonix/SCD's Patient seen and case discussed with attending, Dr. Hernandez - Date & Time Date: 03/14/17 Time: 06:11
--- NOTE | 2017-03-14 06:37 | CT ---
EXAM: CT Abdomen and Pelvis Without Intravenous Contrast CLINICAL HISTORY: 51 years old, female; Pain; Abdominal pain; Patient HX: Abd pain TECHNIQUE: Axial computed tomography images of the abdomen and pelvis without intravenous contrast. This CT exam was performed using one or more of the following dose reduction techniques: automated exposure control, adjustment of the mA and/or kV according to patient size, and/or use of iterative reconstruction technique. Coronal and sagittal reformatted images were created and reviewed. COMPARISON: CT - ABD PELVIS PO IV CONTRAST 02/25/2017 7:14:36 PM FINDINGS: Limitations: Lack of intravenous contrast. Motion artifact - mild. Lower thorax: Minimal atelectasis/scarring. Small cyst or bulla RIGHT lower lobe. ABDOMEN: Liver: Unremarkable. Gallbladder and bile ducts: No calcified stones. No ductal dilation. Pancreas: Unremarkable. No ductal dilation. Spleen: No splenomegaly. Adrenals: No mass. Kidneys and ureters: Scarring of kidneys. Few small renal calculi/calcifications. No hydronephrosis. Stomach and bowel: Mild to moderate stool and air distention of cecum, ascending, transverse colon. No definite transition point. Few scattered diverticula within colon. No associated inflammatory stranding. No definite mural thickening. Appendix: No findings to suggest acute appendicitis. PELVIS: Bladder: Unremarkable. No stones. Reproductive: Hysterectomy. ABDOMEN and PELVIS: Intraperitoneal space: No significant fluid collection. No free air. Bones/joints: Degenerative anterolisthesis of lower lumbar spine. Degenerative changes of spine. No acute fracture. Soft tissues: Unremarkable. Vasculature: Mild atherosclerotic disease. Lymph nodes: No pathologically enlarged lymph nodes. IMPRESSION: 1. Colonic distention, likely ileus. 2. Incidental/non-acute findings are described above.
[2017-03-14] MEDS ORDERED: Potassium Chloride 20 mEq ER Tab PO STA (06:44)
--- NOTE | 2017-03-14 07:58 | CP.PCM.CON ---
<Eagle Pastrana - Last Filed: 03/14/17 07:53> History of Present Illness - History of Present Illness History of Present Illness: General Surgery Consult Note for Dr. Driver CC: Nausea X 1 day This is a 51 F with PMH of COPD, hypertension, hypothyroidism, restless leg syndrome, gastroparesis, anxiety, and osteoporosis who is presenting with a 1 day history of nausea. She reports nausea but no vomiting. Her last BM was yesterday it was non bloody normal caliber stool. She reports she normally has a BM every other day, last time she passed gas was yesterday. She denies any fevers or chills at home, she denies chest pain or SOB. CT abd without oral contrast done in the ED showed Dilated loops of bowel with gas throughout without a transition point, there is stool throughout the colon consistent with constipation vs ileus. PMHx: COPD, HTN, Restless leg syndrome, Gastroparesis, Anxiety, Osteoporosis PSHx: Hysterectomy 2015, Appendectomy, Tonsillectomy Family Hx: CAD, DM on both maternal and paternal first degree relatives. Grandfather - Mouth/Throat Cancer Social Hx: lives with bobby. Quit Tob 2 years ago, former 1/2 ppd. Occasional ETOH, last use past weekend. Denies any Drugs Review of Systems - Constitutional Constitutional: absent: Chills, Fever - EENT Eyes: absent: Blind Spots, Blurred Vision Ears: absent: Ear Discharge, Ear Pain - Cardiovascular Cardiovascular: absent: Chest Pain, Dyspnea - Respiratory Respiratory: absent: Dyspnea - Gastrointestinal Gastrointestinal: Abdominal Pain, Bloating, Nausea. absent: Diarrhea, Loose Stools, Vomiting Past Patient History - Infectious Disease Hx of Infectious Diseases: None - Tetanus Immunizations Tetanus Immunization: Unknown - Past Social History Smoking Status: Former Smoker - CARDIAC Hx Hypertension: Yes - PULMONARY Hx Chronic Obstructive Pulmonary Disease (COPD): Yes - NEUROLOGICAL Hx Neurological Disorder: Yes Hx Dizziness: Yes Hx Parkinson's Disease: Yes - HEENT Hx HEENT Problems: Yes (TONSILLECTOMY) - RENAL Hx Chronic Kidney Disease: No - ENDOCRINE/METABOLIC Hx Hypothyroidism: Yes - HEMATOLOGICAL/ONCOLOGICAL Hx Blood Disorders: Yes Hx Anemia: Yes - INTEGUMENTARY Hx Dermatological Problems: No - MUSCULOSKELETAL/RHEUMATOLOGICAL Hx Musculoskeletal Disorders: Yes Hx Falls: Yes - GASTROINTESTINAL Hx Gastrointestinal Disorders: Yes (APPENDECTOMY,GASTRITIS,GASTROPARESIS, GASTROENTERITIS,) Hx Gastroesophageal Reflux: Yes - GENITOURINARY/GYNECOLOGICAL Hx Genitourinary Disorders: No (TUBAL LIGATION,HYSTERECTOMY) - PSYCHIATRIC Hx Psychophysiologic Disorder: Yes (RX DRUG ABUSE,ETOH ABUSE,SMOKED CIGARETTES QUIT 2 YRS AGO) Hx Anxiety: Yes Hx Depression: Yes Hx Substance Use: Yes (RX DRUG ABUSE) Other/Comment: ANEMIA - SURGICAL HISTORY Hx Appendectomy: Yes Hx Hysterectomy: Yes Other/Comment: tubal ligation - ANESTHESIA Hx Anesthesia: Yes Hx Anesthesia Reactions: No Hx Malignant Hyperthermia: No Meds Allergies/Adverse Reactions: Allergies Allergy/AdvReac Type Severity Reaction Status Date / Time No Known Allergies Allergy Verified 03/14/17 03:58 - Medications Medications: Current Medications Albuterol Sulfate (Albuterol 0.042% Inhal Lilian (1.25mg/3ml) Ud) 1.25 mg IH Q6 PRN PRN Reason: Shortness of Breath Arformoterol Tartrate (Brovana) 15 mcg IH [id number] [facility] Budesonide (Pulmicort Respules) 0.5 mg IH [id number] [facility] Lactated Ringer's (Lactated Ringer's) 1,000 mls @ 100 mls/hr IV .Q10H [facility] Lactulose (Enulose) 10 gm PO TID [facility] Ondansetron HCl (Zofran Inj) 4 mg IVP Q4H PRN PRN Reason: Nausea/Vomiting Pantoprazole Sodium (Protonix Inj) 40 mg IVP DAILY [facility] Polyethylene Glycol (Miralax) 17 gm PO BID [facility] Sodium Phosphate (Fleet Enema) 135 ml RC Q8 [facility] Tiotropium [place] (Spiriva) 18 mcg INH DAILY [facility] Physical Exam - Constitutional Appears: Non-toxic, No Acute Distress - Head Exam Head Exam: ATRAUMATIC, NORMOCEPHALIC - Eye Exam Eye Exam: EOMI - ENT Exam ENT Exam: Mucous Membranes Moist - Respiratory Exam Respiratory Exam: NORMAL BREATHING PATTERN - Cardiovascular Exam Cardiovascular Exam: REGULAR RHYTHM - GI/Abdominal Exam GI & Abdominal Exam: Soft. absent: Distended, Firm, Guarding, Hernia, Pulsatile Mass, Rebound, Rigid, Tenderness - Extremities Exam Extremities exam: Positive for: normal inspection - Neurological Exam Neurological exam: Alert - Psychiatric Exam Psychiatric exam: Normal Affect, Normal Mood - Skin Skin Exam: Dry, Intact, Normal Color Results - Vital Signs Recent Vital Signs: Last Vital Signs Temp 98.1 F 03/14/17 03:51 Pulse 88 03/14/17 06:19 Resp 18 03/14/17 06:19 BP 146/86 03/14/17 06:19 Pulse Ox 99 03/14/17 06:19 - Labs Result Diagrams: 03/14/17 04:00 03/14/17 04:00 Assessment & Plan - Assessment and Plan (Free Text) Assessment: This is a 51F with astroperesis, chronic constipation, Reynods disease, chronic muscle spasms, parkinson's disease, copd who is presenting with nausea and vomiting and abdominal pain with a CT showing large volume stool in colon Vital Signs Stable Labs WNL Recommend NPO except meds IVF Miralax, fleets enemas, Lactulose Protonix Zofran Recommend hold opiates as it could be the cause and/or exacerbate existing ileus. Continue medical management per primary team Will discuss with Dr. Villa Pastrana PGY-4 <Nilesh Driver - Last Filed: 03/15/17 22:27> Meds - Medications Medications: Current Medications Acetaminophen (Tylenol 325mg Tab) 650 mg PO Q6H PRN PRN Reason: Pain, moderate (4-7) Last Admin: 03/15/17 13:22 Dose: 650 mg Albuterol Sulfate (Albuterol 0.042% Inhal Lilian (1.25mg/3ml) Ud) 1.25 mg IH Q6 PRN PRN Reason: Shortness of Breath Arformoterol Tartrate (Brovana) 15 mcg IH [id number] [facility] Budesonide (Pulmicort Respules) 0.5 mg IH [id number] [facility] Last Admin: 03/15/17 19:55 Dose: 0.5 mg Carbidopa/Levodopa (Sinemet) 1 tab PO TID [facility] Last Admin: 03/15/17 18:01 Dose: 1 tab Lactated Ringer's (Lactated Ringer's) 1,000 mls @ 100 mls/hr IV .Q10H [facility] Last Admin: 03/15/17 13:38 Dose: 100 mls/hr Erythromycin 170 mg/ Sodium (Chloride) 100 mls @ 100 mls/hr IVPB Q8 [facility] Lactulose (Enulose) 10 gm PO TID [facility] Last Admin: 03/15/17 18:01 Dose: 10 gm Ondansetron HCl (Zofran Inj) 4 mg IVP Q4H PRN PRN Reason: Nausea/Vomiting Last Admin: 03/15/17 20:48 Dose: 4 mg Pantoprazole Sodium (Protonix Inj) 40 mg IVP DAILY [facility] Last Admin: 03/15/17 10:18 Dose: 40 mg Polyethylene Glycol (Miralax) 17 gm PO BID [facility] Last Admin: 03/15/17 18:01 Dose: 17 gm Sodium Phosphate (Fleet Enema) 135 ml RC Q8 [facility] Last Admin: 03/15/17 21:30 Dose: 135 ml Tiotropium [place] (Spiriva) 18 mcg INH DAILY [facility] Last Admin: 03/14/17 10:13 Dose: 18 mcg Results - Vital Signs Recent Vital Signs: Last Vital Signs Temp 97.4 F L 03/15/17 17:28 Pulse 53 L 03/15/17 17:28 Resp 20 03/15/17 17:28 BP 134/97 H 03/15/17 17:28 Pulse Ox 95 03/15/17 17:28 - Labs Result Diagrams: 03/15/17 06:45 03/15/17 06:45 Attending/Attestation - Attestation I have personally seen and examined this patient.: Yes I have fully participated in the care of the patient.: Yes I have reviewed all pertinent clinical information: Yes Notes (Text): 03/15/17 22:27 Pt was seen and examined at bedside on 03/14/17 Agree with above note and assessment. Pt with Chronic constipation and abdominal pain Fleet enema NPO, IVF Plan d.w pt in detail Risk and benefit explained in detail.
[2017-03-14] MEDS ORDERED: Arformoterol 15 mcg/2 ml Inh Sol IH SCH (08:00)
[2017-03-14] MEDS ORDERED: Morphine 2 mg/ml ISec IVP ONE (09:15)
[2017-03-14] MEDS: POLYETHYLENE GLYCOL 3350 17 GM/Dose PACKET PO SCH ×2 (10:13→17:18)
[2017-03-14] MEDS: Tiotropium 18 mcg Cap For Inhalation INH SCH (10:13)
[2017-03-14] MEDS: Lactated Ringer's 1,000 ML IV SCH ×2 (10:14→20:17)
[2017-03-14] MEDS: Budesonide 0.5 mg/2 ml Inhal Susp UD IH SCH (21:00)
--- NOTE | 2017-03-15 01:14 | CARD ---
APPROVED REPORT EKG Measurement Heart [id number] [place] [id number] [id number] <Conclusion> Normal sinus rhythm Normal ECG
[2017-03-15 07:00] LABS: ADD MANUAL DIFF? NO
[2017-03-15 07:11] LABS: BASO # 0.04 K/mm3 (0.0-2.0); BASO % 0.6 % (0.0-3.0); EOS # 0.2 (0.0-0.7); EOS % 3.2 % (1.5-5.0); GRAN # 3.87 (1.4-6.5); GRAN % 53.7 % (50.0-68.0); LYMPH # 2.4 (1.2-3.4); LYMPH % 33.9 % (22.0-35.0); MEAN CORPUSCULAR HEMOGLOBIN 25.7 pg (25.0-35.0); MEAN CORPUSCULAR HGB CONC 31.4 g/dl (31.0-37.0); MEAN PLATELET VOLUME 9.9 fl (7.0-11.0); MONO # 0.6 (0.1-0.6); MONO % 8.6 % (1.0-6.0); PLATELET COUNT 311 10^3/uL (120.0-450.0); RED CELL DISTRIBUTION WIDTH 14.3 % (11.5-14.5); WHITE BLOOD COUNT 7.2 10^3/ul (4.5-11.0)
[2017-03-15] MEDS: Budesonide 0.5 mg/2 ml Inhal Susp UD IH SCH ×2 (07:24→19:55)
[2017-03-15 07:32] LABS: ALB/GLOB RATIO 1.3 (1.1-1.8); ALKALINE PHOSPHATASE 58 U/L (38-133); ALT/SGPT 22 U/L (7-56); AST/SGOT 33 U/L (15-39); BILIRUBIN,TOTAL 0.6 mg/dL (0.2-1.3); BLOOD UREA NITROGEN 6 mg/dL (7-21); CALCIUM 9.4 mg/dL (8.4-10.5); CARBON DIOXIDE 27 mmol/L (21-33); CHLORIDE 101 mmol/L (98-107); GFR AFRICAN-AMERICAN > 60; GLUCOSE,RANDOM 86 mg/dL (70-110); POTASSIUM 4.2 mmol/L (3.6-5.0); SODIUM 138 mmol/L (132-148); TOTAL PROTEIN 7.4 g/dL (5.8-8.3)
--- NOTE | 2017-03-15 08:12 | CP.PCM.PN ---
<Nitin Beverly - Last Filed: 03/15/17 08:08> Subjective - Date & Time of Evaluation Date of Evaluation: 03/15/17 Time of Evaluation: 06:35 - Subjective Subjective: General Surgery Pt S&E, NAEO. Still with abdominal soreness. Only watery discharge after enemas. Pt did ok with ultram for pain. Objective - Vital Signs/Intake and Output Vital Signs (last 24 hours): Temp Pulse Resp BP Pulse Ox 98.1 F 75 20 168/107 H 98 03/14/17 12:45 03/14/17 12:45 03/14/17 12:45 03/14/17 12:45 03/14/17 08:00 Intake and Output: 03/15/17 03/15/17 06:59 18:59 Intake Total 420 Balance 420 - Medications Medications: Current Medications Acetaminophen (Tylenol 325mg Tab) 650 mg PO Q6H PRN PRN Reason: Pain, moderate (4-7) Last Admin: 03/15/17 05:33 Dose: 650 mg Albuterol Sulfate (Albuterol 0.042% Inhal Lilian (1.25mg/3ml) Ud) 1.25 mg IH Q6 PRN PRN Reason: Shortness of Breath Arformoterol Tartrate (Brovana) 15 mcg IH [id number] [facility] Budesonide (Pulmicort Respules) 0.5 mg IH [id number] [facility] Last Admin: 03/15/17 07:24 Dose: 0.5 mg Carbidopa/Levodopa (Sinemet) 1 tab PO TID [facility] Last Admin: 03/14/17 17:18 Dose: 1 tab Lactated Ringer's (Lactated Ringer's) 1,000 mls @ 100 mls/hr IV .Q10H [facility] Last Admin: 03/14/17 20:17 Dose: 100 mls/hr Lactulose (Enulose) 10 gm PO TID [facility] Last Admin: 03/14/17 17:18 Dose: 10 gm Ondansetron HCl (Zofran Inj) 4 mg IVP Q4H PRN PRN Reason: Nausea/Vomiting Last Admin: 03/15/17 05:33 Dose: 4 mg Pantoprazole Sodium (Protonix Inj) 40 mg IVP DAILY [facility] Last Admin: 03/14/17 10:14 Dose: 40 mg Polyethylene Glycol (Miralax) 17 gm PO BID [facility] Last Admin: 03/14/17 17:18 Dose: 17 gm Sodium Phosphate (Fleet Enema) 135 ml RC Q8 [facility] Last Admin: 03/15/17 05:45 Dose: Not Given Tiotropium [place] (Spiriva) 18 mcg INH DAILY [facility] Last Admin: 03/14/17 10:13 Dose: 18 mcg - Labs Labs: 03/15/17 06:45 03/15/17 06:45 PT 10.5 Seconds (9.9-11.8) 03/14/17 04:00 INR 0.97 (0.93-1.08) 03/14/17 04:00 APTT 24.8 Seconds (23.7-30.8) 03/14/17 04:00 - Constitutional Appears: Non-toxic, No Acute Distress - Head Exam Head Exam: ATRAUMATIC, NORMOCEPHALIC - Eye Exam Eye Exam: EOMI. absent: Scleral icterus - Respiratory Exam Respiratory Exam: NORMAL BREATHING PATTERN. absent: Respiratory Distress - GI/Abdominal Exam GI & Abdominal Exam: Soft, Tenderness (mild suprapubic). absent: Distended, Firm, Guarding, Rigid, Rebound - Rectal Exam Rectal Exam: Deferred - Neurological Exam Neurological Exam: Alert, Awake - Skin Skin Exam: Dry, Warm Assessment and Plan - Assessment and Plan (Free Text) Assessment: 51F with nausea and vomiting and abdominal pain and CT showing constipation Plan: Continue with enemas until passing stool Reduce opiod use Potassium repleted Pt on CLD Will D/W Dr. Villa Beverly PGY3 <Nilesh Driver B - Last Filed: 03/15/17 22:32> Objective - Vital Signs/Intake and Output Vital Signs (last 24 hours): Temp Pulse Resp BP Pulse Ox 97.4 F L 53 L 20 134/97 H 95 03/15/17 17:28 03/15/17 17:28 03/15/17 17:28 03/15/17 17:28 03/15/17 17:28 Intake and Output: 03/15/17 03/16/17 18:59 06:59 Intake Total 1320 960 Balance 1320 960 - Medications Medications: Current Medications Acetaminophen (Tylenol 325mg Tab) 650 mg PO Q6H PRN PRN Reason: Pain, moderate (4-7) Last Admin: 03/15/17 13:22 Dose: 650 mg Albuterol Sulfate (Albuterol 0.042% Inhal Lilian (1.25mg/3ml) Ud) 1.25 mg IH Q6 PRN PRN Reason: Shortness of Breath Arformoterol Tartrate (Brovana) 15 mcg IH [id number] [facility] Budesonide (Pulmicort Respules) 0.5 mg IH [id number] [facility] Last Admin: 03/15/17 19:55 Dose: 0.5 mg Carbidopa/Levodopa (Sinemet) 1 tab PO TID [facility] Last Admin: 03/15/17 18:01 Dose: 1 tab Lactated Ringer's (Lactated Ringer's) 1,000 mls @ 100 mls/hr IV .Q10H [facility] Last Admin: 03/15/17 13:38 Dose: 100 mls/hr Erythromycin 170 mg/ Sodium (Chloride) 100 mls @ 100 mls/hr IVPB Q8 [facility] Lactulose (Enulose) 10 gm PO TID [facility] Last Admin: 03/15/17 18:01 Dose: 10 gm Ondansetron HCl (Zofran Inj) 4 mg IVP Q4H PRN PRN Reason: Nausea/Vomiting Last Admin: 03/15/17 20:48 Dose: 4 mg Pantoprazole Sodium (Protonix Inj) 40 mg IVP DAILY [facility] Last Admin: 03/15/17 10:18 Dose: 40 mg Polyethylene Glycol (Miralax) 17 gm PO BID [facility] Last Admin: 03/15/17 18:01 Dose: 17 gm Sodium Phosphate (Fleet Enema) 135 ml RC Q8 [facility] Last Admin: 03/15/17 21:30 Dose: 135 ml Tiotropium [place] (Spiriva) 18 mcg INH DAILY [facility] Last Admin: 03/14/17 10:13 Dose: 18 mcg - Labs Labs: PT 10.5 Seconds (9.9-11.8) 03/14/17 04:00 INR 0.97 (0.93-1.08) 03/14/17 04:00 APTT 24.8 Seconds (23.7-30.8) 03/14/17 04:00 Attending/Attestation - Attestation I have personally seen and examined this patient.: Yes I have fully participated in the care of the patient.: Yes I have reviewed all pertinent clinical information, including history, physical exam and plan: Yes Notes (Text): 03/15/17 22:31 Pt was seen and examined at bedside on 03/15/17 Agree with above note and assessment. Pt with Improving Chronic constipation Pt had several BM after enema No need for any surgical intervention at present Plan d.w pt in detail Risk and benefit explained in detail.
[2017-03-15] MEDS: POLYETHYLENE GLYCOL 3350 17 GM/Dose PACKET PO SCH ×2 (10:18→18:01)
[2017-03-15] MEDS ORDERED: Carbidopa/Levodopa 25/250 PO ONE (10:40)
--- NOTE | 2017-03-15 11:30 | CP.PCM.PN ---
<Anthony Wade - Last Filed: 03/15/17 11:34> Subjective - Date & Time of Evaluation Date of Evaluation: 03/15/17 Time of Evaluation: 08:00 - Subjective Subjective: Pt was seen and examined at bedside. Pt has mild complaints of abdominal pain and discomfort. Pt reports passing minimal gas and denied any belching. Pt had enema yesterday however did not experience a bowel movement only watery discharge. Pt is moving her bladder regularly. Pt is experiencing tremors however is no worse than at baseline. Pt denied fever, chills, sob, chest pains , n/v/d/c or urinary symptoms. Objective - Vital Signs/Intake and Output Vital Signs (last 24 hours): Temp Pulse Resp BP Pulse Ox 97.6 F 60 16 130/86 97 03/15/17 08:00 03/15/17 08:00 03/15/17 08:00 03/15/17 08:00 03/15/17 08:00 - Medications Medications: Current Medications Acetaminophen (Tylenol 325mg Tab) 650 mg PO Q6H PRN PRN Reason: Pain, moderate (4-7) Last Admin: 03/15/17 05:33 Dose: 650 mg Albuterol Sulfate (Albuterol 0.042% Inhal Lilian (1.25mg/3ml) Ud) 1.25 mg IH Q6 PRN PRN Reason: Shortness of Breath Arformoterol Tartrate (Brovana) 15 mcg IH [id number] [facility] Budesonide (Pulmicort Respules) 0.5 mg IH [id number] [facility] Last Admin: 03/15/17 07:24 Dose: 0.5 mg Carbidopa/Levodopa (Sinemet) 1 tab PO TID [facility] Lactated Ringer's (Lactated Ringer's) 1,000 mls @ 100 mls/hr IV .Q10H [facility] Last Admin: 03/14/17 20:17 Dose: 100 mls/hr Lactulose (Enulose) 10 gm PO TID [facility] Last Admin: 03/15/17 10:17 Dose: 10 gm Metoclopramide HCl (Reglan) 5 mg IVP ACHS [facility] Last Admin: 03/15/17 10:32 Dose: 5 mg Ondansetron HCl (Zofran Inj) 4 mg IVP Q4H PRN PRN Reason: Nausea/Vomiting Last Admin: 03/15/17 05:33 Dose: 4 mg Pantoprazole Sodium (Protonix Inj) 40 mg IVP DAILY [facility] Last Admin: 03/15/17 10:18 Dose: 40 mg Polyethylene Glycol (Miralax) 17 gm PO BID [facility] Last Admin: 03/15/17 10:18 Dose: 17 gm Sodium Phosphate (Fleet Enema) 135 ml RC Q8 [facility] Last Admin: 03/15/17 05:45 Dose: Not Given Tiotropium [place] (Spiriva) 18 mcg INH DAILY [facility] Last Admin: 03/14/17 10:13 Dose: 18 mcg - Labs Labs: PT 10.5 Seconds (9.9-11.8) 03/14/17 04:00 INR 0.97 (0.93-1.08) 03/14/17 04:00 APTT 24.8 Seconds (23.7-30.8) 03/14/17 04:00 - Constitutional Appears: No Acute Distress - Head Exam Head Exam: ATRAUMATIC, NORMAL INSPECTION, NORMOCEPHALIC - Eye Exam Eye Exam: EOMI, Normal appearance, PERRL Pupil Exam: NORMAL ACCOMODATION, PERRL - ENT Exam ENT Exam: Mucous Membranes Moist, Normal Exam - Neck Exam Neck Exam: Full ROM, Normal Inspection. absent: Lymphadenopathy - Respiratory Exam Respiratory Exam: Clear to Ausculation Bilateral, NORMAL BREATHING PATTERN - Cardiovascular Exam Cardiovascular Exam: REGULAR RHYTHM, +S1, +S2. absent: Murmur - GI/Abdominal Exam GI & Abdominal Exam: Soft, Hypoactive Bowel Sounds. absent: Tenderness - Extremities Exam Extremities Exam: Full ROM, Normal Capillary Refill, Normal Inspection. absent : Joint Swelling, Pedal Edema - Back Exam Back Exam: NORMAL INSPECTION - Neurological Exam Neurological Exam: Alert, Awake, CN II-XII Intact, Oriented x3 - Psychiatric Exam Psychiatric exam: Normal Affect, Normal Mood - Skin Skin Exam: Dry, Intact, Normal Color, Warm Assessment and Plan - Assessment and Plan (Free Text) Assessment: 51yo female with history of COPD, hypertension, hypothyroidism, restless leg syndrome, gastroparesis, anxiety, and osteoporosis who presenting c/o abdominal pain admitted with gastroparesis and constipation 1. Abdominal pain -CT abd/pelvis from 2 weeks prior revealed mild ileus -Repeat Abd/pelvis CT shows constipation -Zofran 4mg q4h PRN for nausea/vomiting - CLD and ADAT -Surgery consult - Dr. Driver, recommend fleet enemas until bm -IVF - Reduce opiod use - Reglan - GI consulted, Dr. Payne, will appreciate recs 2. COPD -Continue home inhalers 3. Parkinsons - Continue home meds with sinemet 25/250 4. GI/DVT -Protonix/SCD's Patient seen and case discussed with Dr. Gramajo <Clarita Gramajo - Last Filed: 03/15/17 15:39> Objective - Vital Signs/Intake and Output Vital Signs (last 24 hours): Temp Pulse Resp BP Pulse Ox 97.6 F 60 16 130/86 97 03/15/17 08:00 03/15/17 08:00 03/15/17 08:00 03/15/17 08:00 03/15/17 08:00 Intake and Output: 03/15/17 03/15/17 06:59 18:59 Intake Total 1320 Balance 1320 - Medications Medications: Current Medications Acetaminophen (Tylenol 325mg Tab) 650 mg PO Q6H PRN PRN Reason: Pain, moderate (4-7) Last Admin: 03/15/17 13:22 Dose: 650 mg Albuterol Sulfate (Albuterol 0.042% Inhal Lilian (1.25mg/3ml) Ud) 1.25 mg IH Q6 PRN PRN Reason: Shortness of Breath Arformoterol Tartrate (Brovana) 15 mcg IH [id number] [facility] Budesonide (Pulmicort Respules) 0.5 mg IH [id number] [facility] Last Admin: 03/15/17 07:24 Dose: 0.5 mg Carbidopa/Levodopa (Sinemet) 1 tab PO TID [facility] Last Admin: 03/15/17 13:23 Dose: 1 tab Lactated Ringer's (Lactated Ringer's) 1,000 mls @ 100 mls/hr IV .Q10H [facility] Last Admin: 03/15/17 13:38 Dose: 100 mls/hr Erythromycin 170 mg/ Sodium (Chloride) 100 mls @ 100 mls/hr IVPB Q8 [facility] Erythromycin 170 mg/ Sodium (Chloride) 100 mls @ 100 mls/hr IVPB STAT STA Stop: 03/15/17 16:05 Lactulose (Enulose) 10 gm PO TID [facility] Last Admin: 03/15/17 13:20 Dose: 10 gm Ondansetron HCl (Zofran Inj) 4 mg IVP Q4H PRN PRN Reason: Nausea/Vomiting Last Admin: 03/15/17 05:33 Dose: 4 mg Pantoprazole Sodium (Protonix Inj) 40 mg IVP DAILY [facility] Last Admin: 03/15/17 10:18 Dose: 40 mg Polyethylene Glycol (Miralax) 17 gm PO BID [facility] Last Admin: 03/15/17 10:18 Dose: 17 gm Sodium Phosphate (Fleet Enema) 135 ml RC Q8 [facility] Last Admin: 03/15/17 13:38 Dose: Not Given Tiotropium [place] (Spiriva) 18 mcg INH DAILY [facility] Last Admin: 03/14/17 10:13 Dose: 18 mcg - Labs Labs: PT 10.5 Seconds (9.9-11.8) 03/14/17 04:00 INR 0.97 (0.93-1.08) 03/14/17 04:00 APTT 24.8 Seconds (23.7-30.8) 03/14/17 04:00 Attending/Attestation - Attestation I have personally seen and examined this patient.: Yes I have fully participated in the care of the patient.: Yes I have reviewed all pertinent clinical information, including history, physical exam and plan: Yes Notes (Text): 03/15/17 15:32 Attending note; Patient seen and examined with resident. Patient is a 51-year-old female admitted with CT abd/pelvis revealed mild ileus and constipation. status post Fleet enema. Continue Colace and MiraLAX. surgery evaluation appreciated. gastroparesis; continue Zofran. Clear liquid diet. GI evaluation appreciated. ordered on IV erythromycin. Advance diet as tolerated. Parkinson's/tremors; continue Sinemet. Follow-up with PMD Dr. cano. Follow-up with GI . 03/15/17 15:35
--- NOTE | 2017-03-15 12:18 | CP.PCM.CON ---
<Julissa Garcia - Last Filed: 03/15/17 13:41> History of Present Illness - History of Present Illness History of Present Illness: Gastroenterology Fellow/PGY4 Consult Note 51 year old female with history of COPD, Hypertension, Hyperlipidemia, Restless leg syndrome, Hypothyroidism, Osteoporosis, Parkinson's disease diagnosed 11/2016 , and Gastroparesis presenting with epigastric pain. Of note, recent discharge for epigastric pain with treatment of mild ileus and gastroenteritis. Patient notes persistent epigastric pain since discharge associated with nausea and bloating. Denies vomiting, hematemesis, heartburn, acid reflux, halitosis, diarrhea, melena, hematochezia, or unintentional weight loss. Notes last formed stool being Wednesday with prior bowel movement being last Wednesday. Baseline bowel habit of formed stool without strained every other day. Follows with court officer, Dr. Reyes, in [place]. Notes previous one year use of Reglan for gastroparesis management with switch to Domperidone in 11/2016 at time of Parkinson's diagnosis. Prior EGD and colonoscopy 2014 endorsed to be normal. Family- paternal grandfather-oral cancer; denies colon cancer or stomach cancer Social- quit [id number] years two years ago; denies alcohol or illicit drug use Surgery- appendectomy, hysterectomy, tonsillectomy Review of Systems - Review of Systems Review of Systems: A 12-point review of systems negative except for as above Past Patient History - Infectious Disease Hx of Infectious Diseases: None - Tetanus Immunizations Tetanus Immunization: Unknown - Past Social History Smoking Status: Former Smoker - CARDIAC Hx Hypertension: Yes - PULMONARY Hx Chronic Obstructive Pulmonary Disease (COPD): Yes - NEUROLOGICAL Hx Neurological Disorder: Yes Hx Dizziness: Yes Hx Parkinson's Disease: Yes - HEENT Hx HEENT Problems: Yes (TONSILLECTOMY) - RENAL Hx Chronic Kidney Disease: No - ENDOCRINE/METABOLIC Hx Hypothyroidism: Yes - HEMATOLOGICAL/ONCOLOGICAL Hx Blood Disorders: Yes Hx Anemia: Yes - INTEGUMENTARY Hx Dermatological Problems: No - MUSCULOSKELETAL/RHEUMATOLOGICAL Hx Falls: Yes - GASTROINTESTINAL Hx Gastrointestinal Disorders: Yes (APPENDECTOMY,GASTRITIS,GASTROPARESIS, GASTROENTERITIS,) Hx Gastroesophageal Reflux: Yes - GENITOURINARY/GYNECOLOGICAL Hx Genitourinary Disorders: No (TUBAL LIGATION,HYSTERECTOMY) - PSYCHIATRIC Hx Psychophysiologic Disorder: Yes (RX DRUG ABUSE,ETOH ABUSE,SMOKED CIGARETTES QUIT 2 YRS AGO) Hx Anxiety: Yes Hx Depression: Yes Hx Substance Use: No Other/Comment: ANEMIA - SURGICAL HISTORY Hx Appendectomy: Yes Hx Hysterectomy: Yes Other/Comment: tubal ligation - ANESTHESIA Hx Anesthesia: Yes Hx Anesthesia Reactions: No Hx Malignant Hyperthermia: No Meds Allergies/Adverse Reactions: Allergies Allergy/AdvReac Type Severity Reaction Status Date / Time No Known Allergies Allergy Verified 03/14/17 03:58 - Medications Medications: Current Medications Acetaminophen (Tylenol 325mg Tab) 650 mg PO Q6H PRN PRN Reason: Pain, moderate (4-7) Last Admin: 03/15/17 05:33 Dose: 650 mg Albuterol Sulfate (Albuterol 0.042% Inhal Lilian (1.25mg/3ml) Ud) 1.25 mg IH Q6 PRN PRN Reason: Shortness of Breath Arformoterol Tartrate (Brovana) 15 mcg IH [id number] [facility] Budesonide (Pulmicort Respules) 0.5 mg IH [id number] [facility] Last Admin: 03/15/17 07:24 Dose: 0.5 mg Carbidopa/Levodopa (Sinemet) 1 tab PO TID [facility] Lactated Ringer's (Lactated Ringer's) 1,000 mls @ 100 mls/hr IV .Q10H [facility] Last Admin: 03/14/17 20:17 Dose: 100 mls/hr Lactulose (Enulose) 10 gm PO TID [facility] Last Admin: 03/15/17 10:17 Dose: 10 gm Metoclopramide HCl (Reglan) 5 mg IVP ACHS [facility] Last Admin: 03/15/17 10:32 Dose: 5 mg Ondansetron HCl (Zofran Inj) 4 mg IVP Q4H PRN PRN Reason: Nausea/Vomiting Last Admin: 03/15/17 05:33 Dose: 4 mg Pantoprazole Sodium (Protonix Inj) 40 mg IVP DAILY [facility] Last Admin: 03/15/17 10:18 Dose: 40 mg Polyethylene Glycol (Miralax) 17 gm PO BID [facility] Last Admin: 03/15/17 10:18 Dose: 17 gm Sodium Phosphate (Fleet Enema) 135 ml RC Q8 [facility] Last Admin: 03/15/17 05:45 Dose: Not Given Tiotropium [place] (Spiriva) 18 mcg INH DAILY [facility] Last Admin: 03/14/17 10:13 Dose: 18 mcg Physical Exam - Constitutional Appears: Non-toxic, No Acute Distress - Head Exam Head Exam: ATRAUMATIC, NORMOCEPHALIC - Eye Exam Eye Exam: EOMI, PERRL Pupil Exam: PERRL. absent: Miosis, Mydriatic - ENT Exam ENT Exam: Mucous Membranes Moist, Normal Oropharynx - Neck Exam Neck exam: Positive for: Full Rom, Normal Inspection - Respiratory Exam Respiratory Exam: Clear to Auscultation Bilateral. absent: Rales, Rhonchi, Wheezes - Cardiovascular Exam Cardiovascular Exam: RRR, +S1, +S2. absent: Gallop, Rubs - GI/Abdominal Exam GI & Abdominal Exam: Distended, Hyperactive Bowel Sounds, Soft, Tenderness. absent: Firm, Guarding, Organomegaly, Rebound, Rigid - Extremities Exam Extremities exam: Positive for: full ROM. Negative for: pedal edema - Neurological Exam Neurological exam: Alert - Psychiatric Exam Psychiatric exam: Normal Affect, Normal Mood - Skin Skin Exam: Dry, Intact, Normal Color, Warm Results - Vital Signs Recent Vital Signs: Last Vital Signs Temp 97.6 F 03/15/17 08:00 Pulse 60 03/15/17 08:00 Resp 16 03/15/17 08:00 BP 130/86 03/15/17 08:00 Pulse Ox 97 03/15/17 08:00 - Labs Result Diagrams: 03/15/17 06:45 03/15/17 06:45 Assessment & Plan - Assessment and Plan (Free Text) Assessment: 51 year old female with history of COPD, Hypertension, Hyperlipidemia, Restless leg syndrome, Hypothyroidism, Osteoporosis, Parkinson's disease diagnosed 11/2016 , and Gastroparesis presenting with epigastric pain after recent discharge for epigastric pain with treatment of mild ileus and gastroenteritis. Active treatment of persistent ileus and constipation noted on CT A/P without contrast. Prior EGD and colonoscopy 2015 endorsed to be normal. Plan: >small bowel movement today >continue aggressive bowel regimen-Miralax, Lactulose >refused enema, consumer credit counselor on administration >avoid narcotics >caution Reglan use with history of Parkinson's disease >supportive care: pain control, antiemetics, IVFs >clear liquid diet as tolerated >serial abdominal exams >will follow clinical course <Sabino Rebollra - Last Filed: 03/15/17 14:22> Meds - Medications Medications: Current Medications Acetaminophen (Tylenol 325mg Tab) 650 mg PO Q6H PRN PRN Reason: Pain, moderate (4-7) Last Admin: 03/15/17 13:22 Dose: 650 mg Albuterol Sulfate (Albuterol 0.042% Inhal Lilian (1.25mg/3ml) Ud) 1.25 mg IH Q6 PRN PRN Reason: Shortness of Breath Arformoterol Tartrate (Brovana) 15 mcg IH [id number] [facility] Budesonide (Pulmicort Respules) 0.5 mg IH [id number] [facility] Last Admin: 03/15/17 07:24 Dose: 0.5 mg Carbidopa/Levodopa (Sinemet) 1 tab PO TID [facility] Last Admin: 03/15/17 13:23 Dose: 1 tab Lactated Ringer's (Lactated Ringer's) 1,000 mls @ 100 mls/hr IV .Q10H [facility] Last Admin: 03/15/17 13:38 Dose: 100 mls/hr Lactulose (Enulose) 10 gm PO TID [facility] Last Admin: 03/15/17 13:20 Dose: 10 gm Metoclopramide HCl (Reglan) 5 mg IVP ACHS [facility] Last Admin: 03/15/17 10:32 Dose: 5 mg Ondansetron HCl (Zofran Inj) 4 mg IVP Q4H PRN PRN Reason: Nausea/Vomiting Last Admin: 03/15/17 05:33 Dose: 4 mg Pantoprazole Sodium (Protonix Inj) 40 mg IVP DAILY [facility] Last Admin: 03/15/17 10:18 Dose: 40 mg Polyethylene Glycol (Miralax) 17 gm PO BID [facility] Last Admin: 03/15/17 10:18 Dose: 17 gm Sodium Phosphate (Fleet Enema) 135 ml RC Q8 [facility] Last Admin: 03/15/17 13:38 Dose: Not Given Tiotropium [place] (Spiriva) 18 mcg INH DAILY [facility] Last Admin: 03/14/17 10:13 Dose: 18 mcg Results - Vital Signs Recent Vital Signs: Last Vital Signs Temp 97.6 F 03/15/17 08:00 Pulse 60 03/15/17 08:00 Resp 16 03/15/17 08:00 BP 130/86 03/15/17 08:00 Pulse Ox 97 03/15/17 08:00 - Labs Result Diagrams: 03/15/17 06:45 03/15/17 06:45 Attending/Attestation - Attestation I have personally seen and examined this patient.: Yes I have fully participated in the care of the patient.: Yes I have reviewed all pertinent clinical information: Yes Notes (Text): 03/15/17 14:14 51 year old female with h/o COPD, HTN, HLD, RLS, Hypothyroidism, Osteoporosis, Parkinson's disease, and Gastroparesis on prokinetic therapy with ileus, abdominal pain, constipation, and gastroparesis. 1. Gastroparesis 2. Abdominal pain 3. Constipation 4. Ileus Plan: -patient overall has symptoms of global dysmotility -recommend supportive care -bowel regimen as above -would avoid reglan use in the setting of Parkinson's disease -could use erythromycin 3mg/kg IV q8 for 2-3 days -continue PPI -as an outpatient, she may resume domperidone -minimize narcotics -liquid diet/low fat/small frequent meals -surgery following
[2017-03-15] MEDS: Carbidopa/Levodopa 25/250 PO SCH ×2 (13:23→18:01)
[2017-03-15] MEDS: Lactated Ringer's 1,000 ML IV SCH (13:38)
[2017-03-15] MEDS ORDERED: Erythromycin 500 mg Inj IVPB SCH (14:30)
[2017-03-15] MEDS ORDERED: ERYTHROMYCIN IVPB STA (15:06)
[2017-03-15] MEDS ORDERED: SODIUM CHLORIDE 0.9% IVPB STA (15:06)
[2017-03-15] MEDS ORDERED: Erythromycin 500 mg Inj IVPB ONE (15:15)
[2017-03-15] MEDS: ERYTHROMYCIN IVPB SCH (23:45)
[2017-03-15] MEDS: SODIUM CHLORIDE 0.9% IVPB SCH (23:45)
[2017-03-16] MEDS: Lactated Ringer's 1,000 ML IV SCH ×2 (00:47→15:24)
[2017-03-16] MEDS: ERYTHROMYCIN IVPB SCH ×3 (05:40→22:24)
[2017-03-16] MEDS: SODIUM CHLORIDE 0.9% IVPB SCH ×3 (05:40→22:24)
[2017-03-16 07:24] LABS: ADD MANUAL DIFF? NO
[2017-03-16] MEDS: Budesonide 0.5 mg/2 ml Inhal Susp UD IH SCH ×2 (07:27→19:43)
[2017-03-16 07:29] LABS: BASO # 0.05 K/mm3 (0.0-2.0); BASO % 0.7 % (0.0-3.0); EOS # 0.2 (0.0-0.7); EOS % 3.3 % (1.5-5.0); GRAN # 4.32 (1.4-6.5); GRAN % 61.9 % (50.0-68.0); LYMPH # 1.8 (1.2-3.4); LYMPH % 25.9 % (22.0-35.0); MEAN CELL VOLUME 81.1 fL (80.0-105.0); MEAN CORPUSCULAR HEMOGLOBIN 25.7 pg (25.0-35.0); MEAN CORPUSCULAR HGB CONC 31.7 g/dl (31.0-37.0); MEAN PLATELET VOLUME 9.5 fl (7.0-11.0); MONO # 0.6 (0.1-0.6); MONO % 8.2 % (1.0-6.0); PLATELET COUNT 313 10^3/uL (120.0-450.0); RED CELL DISTRIBUTION WIDTH 14.2 % (11.5-14.5)
[2017-03-16 07:41] LABS: ALB/GLOB RATIO 1.3 (1.1-1.8); ALKALINE PHOSPHATASE 56 U/L (38-133); ALT/SGPT 26 U/L (7-56); AST/SGOT 34 U/L (15-39); BILIRUBIN,TOTAL 0.6 mg/dL (0.2-1.3); BLOOD UREA NITROGEN 5 mg/dL (7-21); CALCIUM 9.6 mg/dL (8.4-10.5); CARBON DIOXIDE 25 mmol/L (21-33); CHLORIDE 103 mmol/L (98-107); GFR AFRICAN-AMERICAN > 60; GLUCOSE,RANDOM 84 mg/dL (70-110); POTASSIUM 4.5 mmol/L (3.6-5.0); SODIUM 139 mmol/L (132-148); TOTAL PROTEIN 7.5 g/dL (5.8-8.3)
--- NOTE | 2017-03-16 07:49 | CP.PCM.PN ---
<Eva Larios - Last Filed: 03/16/17 11:23> Subjective - Date & Time of Evaluation Date of Evaluation: 03/16/17 Time of Evaluation: 07:42 - Subjective Subjective: GI progress note Pt is seen and examined at bedside. No acute events overnight. Patient received fleet enema overnight and had only a small amount of stool expelled. Passing gas. Patient states her abdominal pain has improved since yesterday. Patient is tolerating diet. Denies having any fevers or chills. 12 point ROS are negative except for the above mentioned. Objective - Vital Signs/Intake and Output Vital Signs (last 24 hours): Temp Pulse Resp BP Pulse Ox 97.4 F L 53 L 20 134/97 H 95 03/15/17 17:28 03/15/17 17:28 03/15/17 17:28 03/15/17 17:28 03/15/17 17:28 Intake and Output: 03/16/17 03/16/17 06:59 18:59 Intake Total 1320 Balance 1320 - Medications Medications: Current Medications Acetaminophen (Tylenol 325mg Tab) 650 mg PO Q6H PRN PRN Reason: Pain, moderate (4-7) Last Admin: 03/15/17 13:22 Dose: 650 mg Albuterol Sulfate (Albuterol 0.042% Inhal Lilian (1.25mg/3ml) Ud) 1.25 mg IH Q6 PRN PRN Reason: Shortness of Breath Arformoterol Tartrate (Brovana) 15 mcg IH [id number] [facility] Budesonide (Pulmicort Respules) 0.5 mg IH [id number] [facility] Last Admin: 03/16/17 07:27 Dose: 0.5 mg Carbidopa/Levodopa (Sinemet) 1 tab PO TID [facility] Last Admin: 03/15/17 18:01 Dose: 1 tab Lactated Ringer's (Lactated Ringer's) 1,000 mls @ 100 mls/hr IV .Q10H [facility] Last Admin: 03/16/17 00:47 Dose: 100 mls/hr Erythromycin 170 mg/ Sodium (Chloride) 100 mls @ 100 mls/hr IVPB Q8 [facility] Last Admin: 03/16/17 05:40 Dose: 100 mls/hr Lactulose (Enulose) 10 gm PO TID [facility] Last Admin: 03/15/17 18:01 Dose: 10 gm Ondansetron HCl (Zofran Inj) 4 mg IVP Q4H PRN PRN Reason: Nausea/Vomiting Last Admin: 03/15/17 20:48 Dose: 4 mg Pantoprazole Sodium (Protonix Inj) 40 mg IVP DAILY [facility] Last Admin: 03/15/17 10:18 Dose: 40 mg Polyethylene Glycol (Miralax) 17 gm PO BID [facility] Last Admin: 03/15/17 18:01 Dose: 17 gm Sodium Phosphate (Fleet Enema) 135 ml RC Q8 [facility] Last Admin: 03/16/17 07:09 Dose: 135 ml Tiotropium [place] (Spiriva) 18 mcg INH DAILY [facility] Last Admin: 03/14/17 10:13 Dose: 18 mcg - Labs Labs: 03/16/17 07:10 PT 10.5 Seconds (9.9-11.8) 03/14/17 04:00 INR 0.97 (0.93-1.08) 03/14/17 04:00 APTT 24.8 Seconds (23.7-30.8) 03/14/17 04:00 - Constitutional Appears: Non-toxic, No Acute Distress - Head Exam Head Exam: ATRAUMATIC - Eye Exam Eye Exam: EOMI - ENT Exam ENT Exam: Mucous Membranes Moist - Respiratory Exam Respiratory Exam: Clear to Ausculation Bilateral, NORMAL BREATHING PATTERN. absent: Accessory Muscle Use, Rales, Rhonchi, Wheezes - Cardiovascular Exam Cardiovascular Exam: REGULAR RHYTHM, +S1, +S2. absent: Diastolic murmur, Gallop , Rubs, Murmur - GI/Abdominal Exam GI & Abdominal Exam: Soft, Tenderness (epigastric region ), Normal Bowel Sounds. absent: Distended, Firm, Guarding, Rigid, Organomegaly - Rectal Exam Rectal Exam: absent: Black Stool, Bloody Stool, Fecal Impaction - Neurological Exam Neurological Exam: Alert, Awake, Oriented x3 - Psychiatric Exam Psychiatric exam: Normal Affect, Normal Mood - Skin Skin Exam: Dry, Intact, Normal Color, Warm Assessment and Plan - Assessment and Plan (Free Text) Assessment: 51 year old female with history of COPD, Hypertension, Hyperlipidemia, Restless leg syndrome, Hypothyroidism, Osteoporosis, Parkinson's disease diagnosed 11/2016 , and Gastroparesis presenting with epigastric pain after recent discharge for epigastric pain with treatment of mild ileus and gastroenteritis. CT of abd/pelvis w/o contrast showed colonic distention, likely ileus; fluid/loose stool within bowel may suggest diarrhea. Prior EGD and colonoscopy 2015 endorsed to be normal. Plan: >rectal exam showed no stool impaction >abdominal xray ordered for assessment of ileus. Daily abdominal x rays >continue aggressive bowel regimen-Miralax, Lactulose, fleet enema, dulculax po BID, dolculax rc qd >avoid narcotics >caution Reglan use with history of Parkinson's disease >supportive care: pain control, antiemetics, IVFs >clear liquid diet as tolerated >serial abdominal exams >will follow clinical course Case discussed with attending, Dr. Rebollar <Sabino Rebollar - Last Filed: 03/16/17 11:53> Objective - Vital Signs/Intake and Output Vital Signs (last 24 hours): Temp Pulse Resp BP Pulse Ox 98 F 61 18 129/84 95 03/16/17 08:29 03/16/17 08:29 03/16/17 08:29 03/16/17 08:29 03/16/17 08:29 Intake and Output: 03/16/17 03/16/17 06:59 18:59 Intake Total 3720 Balance 3720 - Medications Medications: Current Medications Acetaminophen (Tylenol 325mg Tab) 650 mg PO Q6H PRN PRN Reason: Pain, moderate (4-7) Last Admin: 03/16/17 10:14 Dose: 650 mg Albuterol Sulfate (Albuterol 0.042% Inhal Lilian (1.25mg/3ml) Ud) 1.25 mg IH [id number] [facility] Arformoterol Tartrate (Brovana) 15 mcg IH [id number] [facility] Bisacodyl (Dulcolax) 10 mg PO BID [facility] Bisacodyl (Dulcolax) 10 mg RC DAILY [facility] Bisacodyl (Dulcolax) 5 mg PO ONCE ONE Stop: 03/16/17 11:30 Budesonide (Pulmicort Respules) 0.5 mg IH [id number] [facility] Last Admin: 03/16/17 07:27 Dose: 0.5 mg Carbidopa/Levodopa (Sinemet) 1 tab PO TID [facility] Last Admin: 03/16/17 10:15 Dose: 1 tab Lactated Ringer's (Lactated Ringer's) 1,000 mls @ 100 mls/hr IV .Q10H [facility] Last Admin: 03/16/17 00:47 Dose: 100 mls/hr Erythromycin 170 mg/ Sodium (Chloride) 100 mls @ 100 mls/hr IVPB Q8 [facility] Last Admin: 03/16/17 05:40 Dose: 100 mls/hr Lactulose (Enulose) 10 gm PO TID [facility] Last Admin: 03/16/17 10:14 Dose: 10 gm Ondansetron HCl (Zofran Inj) 4 mg IVP Q4H PRN PRN Reason: Nausea/Vomiting Last Admin: 03/15/17 20:48 Dose: 4 mg Pantoprazole Sodium (Protonix Inj) 40 mg IVP DAILY [facility] Last Admin: 03/16/17 10:13 Dose: 40 mg Polyethylene Glycol (Miralax) 17 gm PO BID [facility] Last Admin: 03/16/17 10:14 Dose: 17 gm Sodium Phosphate (Fleet Enema) 135 ml RC Q8 [facility] Last Admin: 03/16/17 07:09 Dose: 135 ml Tiotropium [place] (Spiriva) 18 mcg INH DAILY [facility] Last Admin: 03/16/17 10:15 Dose: 18 mcg Zolpidem Tartrate (Ambien) 5 mg PO HS PRN; Protocol PRN Reason: Insomnia - Labs Labs: 03/16/17 07:10 03/16/17 07:10 PT 10.5 Seconds (9.9-11.8) 03/14/17 04:00 INR 0.97 (0.93-1.08) 03/14/17 04:00 APTT 24.8 Seconds (23.7-30.8) 03/14/17 04:00 Attending/Attestation - Attestation I have personally seen and examined this patient.: Yes I have fully participated in the care of the patient.: Yes I have reviewed all pertinent clinical information, including history, physical exam and plan: Yes Notes (Text): 03/16/17 11:52 51 year old female with h/o COPD, HTN, HLD, RLS, Hypothyroidism, Osteoporosis, Parkinson's disease, and Gastroparesis on prokinetic therapy with ileus, abdominal pain, constipation, and gastroparesis. 1. Gastroparesis 2. Abdominal pain 3. Constipation 4. Ileus Plan: -patient overall has symptoms of global dysmotility -recommend supportive care -continue bowel regimen -would avoid reglan use in the setting of Parkinson's disease -continue erythromycin 3mg/kg IV q8 for 2-3 days -continue PPI -as an outpatient, she may resume domperidone -minimize narcotics -liquid diet/low fat/small frequent meals -surgery following -patient may have Ogilve's syndrome / Colonic pseudoobstruction -repeat abdominal x ray today -may need to consider neostigmine therapy
[2017-03-16] MEDS ORDERED: Bisacodyl 5mg EC Tab PO SCH (10:00)
[2017-03-16] MEDS: POLYETHYLENE GLYCOL 3350 17 GM/Dose PACKET PO SCH ×2 (10:14→18:48)
[2017-03-16] MEDS: Tiotropium 18 mcg Cap For Inhalation INH SCH (10:15)
[2017-03-16] MEDS: Carbidopa/Levodopa 25/250 PO SCH ×3 (10:15→17:55)
--- NOTE | 2017-03-16 10:23 | CP.PCM.PN ---
<Anthony Wade - Last Filed: 03/16/17 10:24> Subjective - Date & Time of Evaluation Date of Evaluation: 03/16/17 Time of Evaluation: 07:00 - Subjective Subjective: Pt was seen and examined at bedside. No acute complaints at this time. Pt has been tolerating fleet enemas, however she has denied having any significant bowel movements or flatus. Pt is tolerating po intake today, she had an episode of nause and vomitting last night, however she had breakfast this morning without issue. Pt has been ambulating. Pt denied fever, chills, sob, chest pains , or urinary symptoms. Objective - Vital Signs/Intake and Output Vital Signs (last 24 hours): Temp Pulse Resp BP Pulse Ox 98 F 61 18 129/84 95 03/16/17 08:29 03/16/17 08:29 03/16/17 08:29 03/16/17 08:29 03/16/17 08:29 Intake and Output: 03/16/17 03/16/17 06:59 18:59 Intake Total 3720 Balance 3720 - Medications Medications: Current Medications Acetaminophen (Tylenol 325mg Tab) 650 mg PO Q6H PRN PRN Reason: Pain, moderate (4-7) Last Admin: 03/16/17 10:14 Dose: 650 mg Albuterol Sulfate (Albuterol 0.042% Inhal Lilian (1.25mg/3ml) Ud) 1.25 mg IH Q6 PRN PRN Reason: Shortness of Breath Arformoterol Tartrate (Brovana) 15 mcg IH [id number] [facility] Bisacodyl (Dulcolax) 5 mg PO DAILY [facility] Last Admin: 03/16/17 10:14 Dose: 5 mg Budesonide (Pulmicort Respules) 0.5 mg IH [id number] [facility] Last Admin: 03/16/17 07:27 Dose: 0.5 mg Carbidopa/Levodopa (Sinemet) 1 tab PO TID [facility] Last Admin: 03/16/17 10:15 Dose: 1 tab Lactated Ringer's (Lactated Ringer's) 1,000 mls @ 100 mls/hr IV .Q10H [facility] Last Admin: 03/16/17 00:47 Dose: 100 mls/hr Erythromycin 170 mg/ Sodium (Chloride) 100 mls @ 100 mls/hr IVPB Q8 [facility] Last Admin: 03/16/17 05:40 Dose: 100 mls/hr Lactulose (Enulose) 10 gm PO TID [facility] Last Admin: 03/16/17 10:14 Dose: 10 gm Ondansetron HCl (Zofran Inj) 4 mg IVP Q4H PRN PRN Reason: Nausea/Vomiting Last Admin: 03/15/17 20:48 Dose: 4 mg Pantoprazole Sodium (Protonix Inj) 40 mg IVP DAILY [facility] Last Admin: 03/16/17 10:13 Dose: 40 mg Polyethylene Glycol (Miralax) 17 gm PO BID [facility] Last Admin: 03/16/17 10:14 Dose: 17 gm Sodium Phosphate (Fleet Enema) 135 ml RC Q8 [facility] Last Admin: 03/16/17 07:09 Dose: 135 ml Tiotropium [place] (Spiriva) 18 mcg INH DAILY [facility] Last Admin: 03/16/17 10:15 Dose: 18 mcg - Labs Labs: 03/16/17 07:10 03/16/17 07:10 PT 10.5 Seconds (9.9-11.8) 03/14/17 04:00 INR 0.97 (0.93-1.08) 03/14/17 04:00 APTT 24.8 Seconds (23.7-30.8) 03/14/17 04:00 - Constitutional Appears: No Acute Distress - Head Exam Head Exam: ATRAUMATIC, NORMAL INSPECTION, NORMOCEPHALIC - Eye Exam Eye Exam: EOMI, Normal appearance, PERRL Pupil Exam: NORMAL ACCOMODATION, PERRL - ENT Exam ENT Exam: Mucous Membranes Moist - Neck Exam Neck Exam: Full ROM, Normal Inspection. absent: Lymphadenopathy - Respiratory Exam Respiratory Exam: Clear to Ausculation Bilateral, NORMAL BREATHING PATTERN - Cardiovascular Exam Cardiovascular Exam: REGULAR RHYTHM, +S1, +S2. absent: Murmur - GI/Abdominal Exam GI & Abdominal Exam: Soft, Normal Bowel Sounds. absent: Tenderness - Extremities Exam Extremities Exam: Full ROM, Normal Capillary Refill, Normal Inspection. absent : Joint Swelling, Pedal Edema - Back Exam Back Exam: NORMAL INSPECTION - Neurological Exam Neurological Exam: Alert, Awake, CN II-XII Intact, Normal Gait, Oriented x3 - Psychiatric Exam Psychiatric exam: Normal Affect, Normal Mood - Skin Skin Exam: Dry, Intact, Normal Color, Warm Assessment and Plan - Assessment and Plan (Free Text) Assessment: 51yo female with history of COPD, hypertension, hypothyroidism, restless leg syndrome, gastroparesis, anxiety, and osteoporosis who presenting c/o abdominal pain admitted with gastroparesis and constipation 1. Abdominal pain -CT abd/pelvis from 2 weeks prior revealed mild ileus -Repeat Abd/pelvis CT shows constipation -Zofran 4mg q4h PRN for nausea/vomiting - CLD and ADAT -Surgery consult - Dr. Driver, recommend fleet enemas until bm -IVF - Reduce opiod use - Erythromycin - GI consulted, Dr. Payne, continue bowel regimen and erythromycin and fu abdominal xray 2. COPD -Continue home inhalers 3. Parkinsons - Continue home meds with sinemet 25/250 4. GI/DVT -Protonix/SCD's Patient seen and case discussed with Dr. Gramajo <Clarita Gramajo - Last Filed: 03/16/17 13:29> Objective - Vital Signs/Intake and Output Vital Signs (last 24 hours): Temp Pulse Resp BP Pulse Ox 98 F 61 18 129/84 95 03/16/17 08:29 03/16/17 08:29 03/16/17 08:29 03/16/17 08:29 03/16/17 08:29 Intake and Output: 03/16/17 03/16/17 06:59 18:59 Intake Total 3720 Balance 3720 - Medications Medications: Current Medications Acetaminophen (Tylenol 325mg Tab) 650 mg PO Q6H PRN PRN Reason: Pain, moderate (4-7) Last Admin: 03/16/17 10:14 Dose: 650 mg Albuterol Sulfate (Albuterol 0.042% Inhal Lilian (1.25mg/3ml) Ud) 1.25 mg IH [id number] [facility] Arformoterol Tartrate (Brovana) 15 mcg IH [id number] [facility] Bisacodyl (Dulcolax) 10 mg PO BID [facility] Bisacodyl (Dulcolax) 10 mg RC DAILY [facility] Budesonide (Pulmicort Respules) 0.5 mg IH [id number] [facility] Last Admin: 03/16/17 07:27 Dose: 0.5 mg Carbidopa/Levodopa (Sinemet) 1 tab PO TID [facility] Last Admin: 03/16/17 10:15 Dose: 1 tab Lactated Ringer's (Lactated Ringer's) 1,000 mls @ 100 mls/hr IV .Q10H [facility] Last Admin: 03/16/17 00:47 Dose: 100 mls/hr Erythromycin 170 mg/ Sodium (Chloride) 100 mls @ 100 mls/hr IVPB Q8 [facility] Last Admin: 03/16/17 05:40 Dose: 100 mls/hr Lactulose (Enulose) 10 gm PO TID [facility] Last Admin: 03/16/17 10:14 Dose: 10 gm Ondansetron HCl (Zofran Inj) 4 mg IVP Q4H PRN PRN Reason: Nausea/Vomiting Last Admin: 03/15/17 20:48 Dose: 4 mg Pantoprazole Sodium (Protonix Inj) 40 mg IVP DAILY [facility] Last Admin: 03/16/17 10:13 Dose: 40 mg Polyethylene Glycol (Miralax) 17 gm PO BID [facility] Last Admin: 03/16/17 10:14 Dose: 17 gm Sodium Phosphate (Fleet Enema) 135 ml RC Q8 [facility] Last Admin: 03/16/17 07:09 Dose: 135 ml Tiotropium [place] (Spiriva) 18 mcg INH DAILY [facility] Last Admin: 03/16/17 10:15 Dose: 18 mcg Zolpidem Tartrate (Ambien) 5 mg PO HS PRN; Protocol PRN Reason: Insomnia - Labs Labs: 03/16/17 07:10 03/16/17 07:10 PT 10.5 Seconds (9.9-11.8) 03/14/17 04:00 INR 0.97 (0.93-1.08) 03/14/17 04:00 APTT 24.8 Seconds (23.7-30.8) 03/14/17 04:00 Attending/Attestation - Attestation I have personally seen and examined this patient.: Yes I have fully participated in the care of the patient.: Yes I have reviewed all pertinent clinical information, including history, physical exam and plan: Yes Notes (Text): 03/16/17 13:25 Attending note; Patient seen and examined with resident. Patient is a 51-year-old female admitted with CT abd/pelvis revealed mild ileus and constipation. status post Fleet enema. Continue Colace and MiraLAX. surgery evaluation appreciated. gastroparesis; continue Zofran. Clear liquid diet. GI evaluation appreciated. on IV erythromycin. currently on liquid diet. Complained of nausea. No vomiting today. Repeat Abdominal x-ray is normal. advance diet in a.m. If tolerates possible discharge tomorrow. Parkinson's/tremors; continue Sinemet. Follow-up with PMD Dr. cano. Follow-up with GI .
[2017-03-16] MEDS ORDERED: Bisacodyl 5mg EC Tab PO ONE (11:29)
--- NOTE | 2017-03-16 12:15 | RAD ---
HISTORY: possible ileus COMPARISON: No prior. FINDINGS: BOWEL: Normal. No obstruction. No free air. BONES: Normal. OTHER FINDINGS: None. IMPRESSION: No active disease.
[2017-03-16] MEDS: Albuterol 0.042% Inhal Sol (1.25 mg/3 mL) UD IH SCH ×2 (13:49→19:43)
--- NOTE | 2017-03-16 17:50 | RAD ---
HISTORY: follow up illeus COMPARISON: No prior. FINDINGS: BOWEL: Normal. No obstruction. No free air. BONES: Normal. OTHER FINDINGS: None. IMPRESSION: No active disease.
[2017-03-16] MEDS: Bisacodyl 5mg EC Tab PO SCH (17:55)
[2017-03-17] MEDS: Albuterol 0.042% Inhal Sol (1.25 mg/3 mL) UD IH SCH ×3 (01:01→13:15)
[2017-03-17] MEDS: Lactated Ringer's 1,000 ML IV SCH ×2 (03:27→14:14)
[2017-03-17] MEDS: SODIUM CHLORIDE 0.9% IVPB SCH ×2 (05:40→14:08)
[2017-03-17] MEDS: ERYTHROMYCIN IVPB SCH ×2 (05:40→14:08)
--- NOTE | 2017-03-17 06:47 | CP.PCM.PN ---
<Eva Larios - Last Filed: 03/17/17 07:48> Subjective - Date & Time of Evaluation Date of Evaluation: 03/17/17 Time of Evaluation: 06:40 - Subjective Subjective: GI progress note Pt is seen and examined at bedside. No acute events overnight. Per nurse, patient had a very small amount of bowel movement. Patient states that she is still passing gas. Patient is tolerating liquids and is ambulating without difficulty. Patient states abdominal pain has improved. 12 point ROS are negative except for the above mentioned. Objective - Vital Signs/Intake and Output Vital Signs (last 24 hours): Temp Pulse Resp BP Pulse Ox 97.8 F 64 20 122/88 94 L 03/16/17 16:00 03/16/17 16:00 03/16/17 16:00 03/16/17 16:00 03/16/17 16:00 Intake and Output: 03/16/17 03/17/17 18:59 06:59 Intake Total 2440 4080 Balance 2440 4080 - Medications Medications: Current Medications Acetaminophen (Tylenol 325mg Tab) 650 mg PO Q6H PRN PRN Reason: Pain, moderate (4-7) Last Admin: 03/16/17 10:14 Dose: 650 mg Albuterol Sulfate (Albuterol 0.042% Inhal Lilian (1.25mg/3ml) Ud) 1.25 mg IH [id number] [facility] Last Admin: 03/17/17 01:01 Dose: Not Given Arformoterol Tartrate (Brovana) 15 mcg IH [id number] [facility] Bisacodyl (Dulcolax) 10 mg PO BID [facility] Last Admin: 03/16/17 17:55 Dose: 10 mg Bisacodyl (Dulcolax) 10 mg RC DAILY [facility] Last Admin: 03/16/17 12:00 Dose: Not Given Budesonide (Pulmicort Respules) 0.5 mg IH [id number] [facility] Last Admin: 03/16/17 19:43 Dose: 0.5 mg Carbidopa/Levodopa (Sinemet) 1 tab PO TID [facility] Last Admin: 03/16/17 17:55 Dose: 1 tab Lactated Ringer's (Lactated Ringer's) 1,000 mls @ 100 mls/hr IV .Q10H [facility] Last Admin: 03/17/17 03:27 Dose: 100 mls/hr Erythromycin 170 mg/ Sodium (Chloride) 100 mls @ 100 mls/hr IVPB Q8 [facility] Last Admin: 03/17/17 05:40 Dose: 100 mls/hr Lactulose (Enulose) 10 gm PO TID [facility] Last Admin: 03/16/17 17:55 Dose: 10 gm Ondansetron HCl (Zofran Inj) 4 mg IVP Q4H PRN PRN Reason: Nausea/Vomiting Last Admin: 03/15/17 20:48 Dose: 4 mg Pantoprazole Sodium (Protonix Inj) 40 mg IVP DAILY [facility] Last Admin: 03/16/17 10:13 Dose: 40 mg Polyethylene Glycol (Miralax) 17 gm PO BID [facility] Last Admin: 03/16/17 18:48 Dose: 17 gm Sodium Phosphate (Fleet Enema) 135 ml RC Q8 [facility] Last Admin: 03/17/17 05:40 Dose: 135 ml Tiotropium [place] (Spiriva) 18 mcg INH DAILY [facility] Last Admin: 03/16/17 10:15 Dose: 18 mcg Zolpidem Tartrate (Ambien) 5 mg PO HS PRN; Protocol PRN Reason: Insomnia Last Admin: 03/16/17 21:40 Dose: 5 mg - Labs Labs: 03/16/17 07:10 03/16/17 07:10 PT 10.5 Seconds (9.9-11.8) 03/14/17 04:00 INR 0.97 (0.93-1.08) 03/14/17 04:00 APTT 24.8 Seconds (23.7-30.8) 03/14/17 04:00 - Constitutional Appears: Non-toxic, No Acute Distress - Head Exam Head Exam: ATRAUMATIC - Eye Exam Eye Exam: EOMI - ENT Exam ENT Exam: Mucous Membranes Moist - Respiratory Exam Respiratory Exam: Clear to Ausculation Bilateral, NORMAL BREATHING PATTERN. absent: Accessory Muscle Use, Rales, Rhonchi, Wheezes, Respiratory Distress - Cardiovascular Exam Cardiovascular Exam: REGULAR RHYTHM, +S1, +S2. absent: Gallop, Rubs, Murmur - GI/Abdominal Exam GI & Abdominal Exam: Soft, Normal Bowel Sounds. absent: Distended, Firm, Guarding, Rigid, Tenderness, Organomegaly - Extremities Exam Extremities Exam: absent: Pedal Edema, Tenderness - Neurological Exam Neurological Exam: Alert, Awake, Oriented x3 - Psychiatric Exam Psychiatric exam: Normal Affect, Normal Mood - Skin Skin Exam: Dry, Intact, Normal Color, Warm Assessment and Plan - Assessment and Plan (Free Text) Assessment: 51 year old female with history of COPD, Hypertension, Hyperlipidemia, Restless leg syndrome, Hypothyroidism, Osteoporosis, Parkinson's disease diagnosed 11/2016 , and Gastroparesis presenting with epigastric pain after recent discharge for epigastric pain with treatment of mild ileus and gastroenteritis. CT of abd/pelvis w/o contrast showed colonic distention, likely ileus; fluid/loose stool within bowel may suggest diarrhea. Prior EGD and colonoscopy 2015 endorsed to be normal. Plan: >rectal exam showed no stool impaction >abdominal xray yesterday showed distended bowel loops. Repeat xray fromthis morning is pending. >After evaluating abd xray, will consider starting patient on GoLytely >continue aggressive bowel regimen-Miralax, Lactulose, fleet enema, dulculax po BID, dolculax rc qd >continue erythromycin 3mg/kg IV q8 for 2-3 days >avoid narcotics >caution Reglan use with history of Parkinson's disease >supportive care: pain control, antiemetics, IVFs >clear liquid diet as tolerated >serial abdominal exams >will follow clinical course Case will be discussed with attending <Sabino Rebollar - Last Filed: 03/17/17 07:55> Objective - Vital Signs/Intake and Output Vital Signs (last 24 hours): Temp Pulse Resp BP Pulse Ox 97.8 F 64 20 122/88 94 L 03/16/17 16:00 03/16/17 16:00 03/16/17 16:00 03/16/17 16:00 03/16/17 16:00 Intake and Output: 03/17/17 03/17/17 06:59 18:59 Intake Total 4080 Balance 4080 - Medications Medications: Current Medications Acetaminophen (Tylenol 325mg Tab) 650 mg PO Q6H PRN PRN Reason: Pain, moderate (4-7) Last Admin: 03/16/17 10:14 Dose: 650 mg Albuterol Sulfate (Albuterol 0.042% Inhal Lilian (1.25mg/3ml) Ud) 1.25 mg IH [id number] [facility] Last Admin: 03/17/17 07:09 Dose: 1.25 mg Arformoterol Tartrate (Brovana) 15 mcg IH [id number] [facility] Bisacodyl (Dulcolax) 10 mg PO BID [facility] Last Admin: 03/16/17 17:55 Dose: 10 mg Bisacodyl (Dulcolax) 10 mg RC DAILY [facility] Last Admin: 03/16/17 12:00 Dose: Not Given Budesonide (Pulmicort Respules) 0.5 mg IH [id number] [facility] Last Admin: 03/17/17 07:09 Dose: 0.5 mg Carbidopa/Levodopa (Sinemet) 1 tab PO TID [facility] Last Admin: 03/16/17 17:55 Dose: 1 tab Lactated Ringer's (Lactated Ringer's) 1,000 mls @ 100 mls/hr IV .Q10H [facility] Last Admin: 03/17/17 03:27 Dose: 100 mls/hr Erythromycin 170 mg/ Sodium (Chloride) 100 mls @ 100 mls/hr IVPB Q8 [facility] Last Admin: 03/17/17 05:40 Dose: 100 mls/hr Lactulose (Enulose) 10 gm PO TID [facility] Last Admin: 03/16/17 17:55 Dose: 10 gm Ondansetron HCl (Zofran Inj) 4 mg IVP Q4H PRN PRN Reason: Nausea/Vomiting Last Admin: 03/15/17 20:48 Dose: 4 mg Pantoprazole Sodium (Protonix Inj) 40 mg IVP DAILY [facility] Last Admin: 03/16/17 10:13 Dose: 40 mg Polyethylene Glycol (Miralax) 17 gm PO BID [facility] Last Admin: 03/16/17 18:48 Dose: 17 gm Sodium Phosphate (Fleet Enema) 135 ml RC Q8 [facility] Last Admin: 03/17/17 05:40 Dose: 135 ml Tiotropium [place] (Spiriva) 18 mcg INH DAILY [facility] Last Admin: 03/16/17 10:15 Dose: 18 mcg Zolpidem Tartrate (Ambien) 5 mg PO HS PRN; Protocol PRN Reason: Insomnia Last Admin: 03/16/17 21:40 Dose: 5 mg - Labs Labs: 03/17/17 07:00 03/17/17 07:00 PT 10.5 Seconds (9.9-11.8) 03/14/17 04:00 INR 0.97 (0.93-1.08) 03/14/17 04:00 APTT 24.8 Seconds (23.7-30.8) 03/14/17 04:00 Attending/Attestation - Attestation I have personally seen and examined this patient.: Yes I have fully participated in the care of the patient.: Yes I have reviewed all pertinent clinical information, including history, physical exam and plan: Yes Notes (Text): 03/17/17 07:53 51 year old female with h/o COPD, HTN, HLD, RLS, Hypothyroidism, Osteoporosis, Parkinson's disease, and Gastroparesis on prokinetic therapy with ileus, abdominal pain, constipation, and gastroparesis. 1. Gastroparesis 2. Abdominal pain 3. Constipation 4. Ileus Plan: -patient overall has symptoms of global dysmotility -recommend supportive care -continue bowel regimen -would avoid reglan use in the setting of Parkinson's disease -continue erythromycin 3mg/kg IV q8 for 2-3 days -continue PPI -as an outpatient, she may resume domperidone -minimize narcotics -liquid diet/low fat/small frequent meals -surgery following -repeat abdominal x ray shows resolving ileus -still little bm -would try golytely 2 liters, if she is responding well, may continue to complete the 4 liters, however if she has increased abdominal pain or distention , would stop altogether
[2017-03-17] MEDS: Budesonide 0.5 mg/2 ml Inhal Susp UD IH SCH (07:09)
[2017-03-17 07:14] LABS: ADD MANUAL DIFF? NO
[2017-03-17 07:28] LABS: BASO # 0.05 K/mm3 (0.0-2.0); BASO % 0.6 % (0.0-3.0); EOS # 0.2 (0.0-0.7); EOS % 2.6 % (1.5-5.0); GRAN # 4.87 (1.4-6.5); GRAN % 58.3 % (50.0-68.0); HEMATOCRIT 36.6 % (36.0-48.0); LYMPH # 2.5 (1.2-3.4); LYMPH % 30.1 % (22.0-35.0); MEAN CELL VOLUME 81.9 fL (80.0-105.0); MEAN CORPUSCULAR HEMOGLOBIN 26.2 pg (25.0-35.0); MEAN PLATELET VOLUME 9.7 fl (7.0-11.0); MONO # 0.7 (0.1-0.6); MONO % 8.4 % (1.0-6.0); PLATELET COUNT 344 10^3/uL (120.0-450.0); RED CELL DISTRIBUTION WIDTH 14.3 % (11.5-14.5); WHITE BLOOD COUNT 8.4 10^3/ul (4.5-11.0)
[2017-03-17 07:30] LABS: ALB/GLOB RATIO 1.3 (1.1-1.8); ALKALINE PHOSPHATASE 59 U/L (38-133); ALT/SGPT 26 U/L (7-56); AST/SGOT 33 U/L (15-39); BILIRUBIN,TOTAL 0.5 mg/dL (0.2-1.3); BLOOD UREA NITROGEN 5 mg/dL (7-21); CALCIUM 9.9 mg/dL (8.4-10.5); CARBON DIOXIDE 25 mmol/L (21-33); CHLORIDE 105 mmol/L (98-107); GFR AFRICAN-AMERICAN > 60; GLUCOSE,RANDOM 85 mg/dL (70-110); POTASSIUM 4.2 mmol/L (3.6-5.0); SODIUM 140 mmol/L (132-148)
--- NOTE | 2017-03-17 07:47 | RAD ---
HISTORY: ileus COMPARISON: A 03/16/2017 button icon is noted. Its full display on the monitor is not present. The report is negative. A machine repair person CT image from 03/14/2017 is available for display. FINDINGS: BOWEL: The small bowel loops are not distended. There is less distended bowel loops on the current study. Mainly the cecum is still distended and not that the similar to the 03/14/2017 CT machine repair person image BONES: Normal. OTHER FINDINGS: None. IMPRESSION: Interval decreasing mostly left-sided colonic distension. Current small-bowel loops also appear less distended than before Findings may relate to a resolving ileus. Some persistent cecal distention noted. Continued clinical follow-up recommended
[2017-03-17] MEDS ORDERED: Peg-Electrolyte Oral Soln 4L (Golytely) PO ONE ×2 (07:54→07:57)
[2017-03-17] MEDS: POLYETHYLENE GLYCOL 3350 17 GM/Dose PACKET PO SCH (10:14)
[2017-03-17] MEDS: Tiotropium 18 mcg Cap For Inhalation INH SCH ×2 (10:14→12:00)
[2017-03-17] MEDS: Carbidopa/Levodopa 25/250 PO SCH ×3 (10:15→17:45)
[2017-03-17] MEDS: Bisacodyl 5mg EC Tab PO SCH (10:15)
--- NOTE | 2017-03-17 14:38 | CP.PCM.DIS ---
<Anthony Wade - Last Filed: 03/17/17 20:33> Provider - Provider Date of Admission: 03/15/17 10:04 Attending physician: Juanita Singh MD Primary care physician: Zuleyka Lomas DO Consults: GI - Dr. Payne Surgery - Dr. Driver Time Spent in preparation of Discharge (in minutes): 45 Hospital Course - Lab Results Lab Results: Most Recent Lab Values WBC 8.4 10^3/ul (4.5-11.0) 03/17/17 07:00 RBC 4.47 10^6/uL (3.5-6.1) 03/17/17 07:00 Hgb 11.7 gm/dL (12.0-16.0) L 03/17/17 07:00 Hct 36.6 % (36.0-48.0) 03/17/17 07:00 MCV 81.9 fL (80.0-105.0) 03/17/17 07:00 MCH 26.2 pg (25.0-35.0) 03/17/17 07:00 MCHC 32.0 g/dl (31.0-37.0) 03/17/17 07:00 RDW 14.3 % (11.5-14.5) 03/17/17 07:00 Plt Count 344 10^3/uL (120.0-450.0) 03/17/17 07:00 MPV 9.7 fl (7.0-11.0) 03/17/17 07:00 Gran % 58.3 % (50.0-68.0) 03/17/17 07:00 Lymph % (Auto) 30.1 % (22.0-35.0) 03/17/17 07:00 [place] % (Auto) 8.4 % (1.0-6.0) H 03/17/17 07:00 Eos % (Auto) 2.6 % (1.5-5.0) 03/17/17 07:00 Baso % (Auto) 0.6 % (0.0-3.0) 03/17/17 07:00 Gran # 4.87 (1.4-6.5) 03/17/17 07:00 Lymph # 2.5 (1.2-3.4) 03/17/17 07:00 [place] # 0.7 (0.1-0.6) H 03/17/17 07:00 Eos # 0.2 (0.0-0.7) 03/17/17 07:00 Baso # 0.05 K/mm3 (0.0-2.0) 03/17/17 07:00 PT 10.5 Seconds (9.9-11.8) 03/14/17 04:00 INR 0.97 (0.93-1.08) 03/14/17 04:00 APTT 24.8 Seconds (23.7-30.8) 03/14/17 04:00 pO2 56 mm/Hg (30-55) H 03/14/17 04:00 VBG pH 7.37 (7.32-7.43) 03/14/17 04:00 VBG pCO2 46.0 (40-60) 03/14/17 04:00 VBG HCO3 26.6 mmol/l (21-28) 03/14/17 04:00 VBG Total CO2 28.0 mmol.L (22-28) 03/14/17 04:00 VBG O2 Sat (Calc) 91.6 % (40-65) H 03/14/17 04:00 VBG Base Excess 0.8 mmol/L (0.0-2.0) 03/14/17 04:00 VBG Potassium 3.6 mmol/L (3.6-5.2) 03/14/17 04:00 Sodium 139.0 mmol/L (132-148) 03/14/17 04:00 Chloride 103.0 mmol/L (98-107) 03/14/17 04:00 Glucose 98 mg/dl (65-105) 03/14/17 04:00 Lactate 1.0 mmol/L (0.7-2.1) 03/14/17 04:00 FiO2 21.0 % 03/14/17 04:00 Sodium 140 mmol/L (132-148) 03/17/17 07:00 Potassium 4.2 mmol/L (3.6-5.0) 03/17/17 07:00 Chloride 105 mmol/L (98-107) 03/17/17 07:00 Carbon Dioxide 25 mmol/L (21-33) 03/17/17 07:00 Anion Gap 14 (10-20) 03/17/17 07:00 BUN 5 mg/dL (7-21) L 03/17/17 07:00 Creatinine 1.0 mg/dL (0.5-1.4) 03/17/17 07:00 Est GFR ( Amer) > 60 03/17/17 07:00 Est GFR (Non-Af Amer) 58 03/17/17 07:00 Random Glucose 85 mg/dL (70-110) 03/17/17 07:00 Calcium 9.9 mg/dL (8.4-10.5) 03/17/17 07:00 Total Bilirubin 0.5 mg/dL (0.2-1.3) 03/17/17 07:00 AST 33 U/L (15-39) 03/17/17 07:00 ALT 26 U/L (7-56) 03/17/17 07:00 Alkaline Phosphatase 59 U/L (38-133) 03/17/17 07:00 Lactate Dehydrogenase 408 U/L (333-699) 03/14/17 04:00 Total Creatine Kinase 70 U/L (35-230) 03/14/17 04:00 Troponin I < 0.01 ng/mL 03/14/17 04:00 Total Protein 8.0 g/dL (5.8-8.3) 03/17/17 07:00 Albumin 4.5 g/dL (3.0-4.8) 03/17/17 07:00 Globulin 3.5 gm/dL 03/17/17 07:00 Albumin/Globulin Ratio 1.3 (1.1-1.8) 03/17/17 07:00 Amylase 136 U/L (35-125) H 03/14/17 04:00 Lipase 59 U/L (23-300) 03/14/17 04:00 Venous Blood Potassium 3.6 mmol/L (3.6-5.2) 03/14/17 04:00 Urine Color Yellow (YELLOW) 03/14/17 04:00 Urine Appearance Clear (CLEAR) 03/14/17 04:00 Urine pH 7.0 (4.7-8.0) 03/14/17 04:00 Ur Specific Flynn 1.010 (1.005-1.035) 03/14/17 04:00 Urine Protein Negative mg/dL (<30 mg/dL) 03/14/17 04:00 Urine Glucose (UA) Negative mg/dL (NEGATIVE) 03/14/17 04:00 Urine Ketones Negative mg/dL (NEGATIVE) 03/14/17 04:00 Urine Blood Negative (NEGATIVE) 03/14/17 04:00 Urine Nitrate Negative (NEGATIVE) 03/14/17 04:00 Urine Bilirubin Negative (NEGATIVE) 03/14/17 04:00 Urine Urobilinogen 0.2 E.U./dL (<1 E.U./dL) 03/14/17 04:00 Ur Leukocyte Esterase Negative Ameya/uL (NEGATIVE) 03/14/17 04:00 - Hospital Course Hospital Course: Patient is a 51yo female with past medical history of COPD, hypertension, hypothyroidism, restless leg syndrome, gastroparesis, anxiety, parkinsons disease and osteoporosis who presenting c/o abdominal pain. She reported that the abdominal pain localizes to the epigastric and is associated with nausea however denies vomiting. She reports that her last bowel movement was on Wednesday prior to admission. Pt has experienced similar symptoms in the past, most recently two weeks prior for the same symptoms. A CT abd/pelvis done at that time was concerning for a mild ileus. Repeat CT abd/pelvis is demonstrating similar concerns. GI and Surgery were consulted, Dr. Payne and Dr. Carson, respectively. Pt was started on a bowel regimen of duculoax, miralax, fleet enemas. General surgery did not indicate any need for any acute intervention, and to continue with bowel regimen and advance diet as tolerated. Dr. Payne, GI, recommended erythromycin to increase gastric motility as well as golytely. Pt has recently began having bowel movements, serial abdominal xrays has demonstrated resolving ileus. Pt diet was advanced, and the patient ultimately tolerated regular diet without issue. Pt is ambulating, moving bowels, and bladder, and expressed an interest in going home. Upon discharge, pt is to fu with PMD Dr. Colon and GI Dr Chandler. Pt is to follow bowel regimen as needed at home and to continue her home meds. Discharge Exam - Head Exam Head Exam: ATRAUMATIC - Eye Exam Eye Exam: EOMI, Normal appearance, PERRL Pupil Exam: NORMAL ACCOMODATION, PERRL - ENT Exam ENT Exam: Mucous Membranes Moist - Respiratory Exam Respiratory Exam: Clear to PA & Lateral, NORMAL BREATHING PATTERN, UNREMARKABLE - Cardiovascular Exam Cardiovascular Exam: RRR, +S1, +S2 - GI/Abdominal Exam GI & Abdominal Exam: Normal Bowel Sounds - Extremities Exam Extremities exam: normal inspection - Back Exam Back exam: NORMAL INSPECTION - Neurological Exam Neurological exam: Alert, CN II-XII Intact, Normal Gait, Oriented x3, Reflexes Normal - Psychiatric Exam Psychiatric exam: Normal Affect, Normal Mood - Skin Skin Exam: Dry, Intact, Normal Color, Warm Discharge Plan - Discharge Medications Prescriptions: Bisacodyl [Dulcolax] 10 mg PO BID #28 Polyethylene Glycol 3350 [Miralax] 17 gm PO BID #28 packet - Follow Up Plan Condition: FAIR Disposition: HOME/ ROUTINE Instructions: Constipation (DC), Pneumococcal Vaccine for Adults (DC), Acute Abdominal Pain (DC), Ileus (DC), Gastroparesis (DC) Additional Instructions: 1. Pt is to Fu with PMD Dr. Colon within 3-5 days 2. Pt is to FU with GI Dr. Chandler within 3-5 days 3. Pt is encouraged to continue bowel regimen at home 4. Pt is to drink plenty of fluids and eat small meals 5. Pt is to resume her home meds 6. Pt is welcomed to return to [facility] if symptoms change or worsen Referrals: Zuleyka Lomas DO [Primary Care Provider] - Sabino Rebollar MD [Staff Provider] - <Juanita Singh - Last Filed: 03/18/17 21:56> Provider - Provider Date of Admission: 03/14/17 05:38 Attending physician: Juanita Singh MD Primary care physician: Zuleyka Lomas DO Hospital Course - Lab Results Lab Results: Most Recent Lab Values WBC 8.4 10^3/ul (4.5-11.0) 03/17/17 07:00 RBC 4.47 10^6/uL (3.5-6.1) 03/17/17 07:00 Hgb 11.7 gm/dL (12.0-16.0) L 03/17/17 07:00 Hct 36.6 % (36.0-48.0) 03/17/17 07:00 MCV 81.9 fL (80.0-105.0) 03/17/17 07:00 MCH 26.2 pg (25.0-35.0) 03/17/17 07:00 MCHC 32.0 g/dl (31.0-37.0) 03/17/17 07:00 RDW 14.3 % (11.5-14.5) 03/17/17 07:00 Plt Count 344 10^3/uL (120.0-450.0) 03/17/17 07:00 MPV 9.7 fl (7.0-11.0) 03/17/17 07:00 Gran % 58.3 % (50.0-68.0) 03/17/17 07:00 Lymph % (Auto) 30.1 % (22.0-35.0) 03/17/17 07:00 [place] % (Auto) 8.4 % (1.0-6.0) H 03/17/17 07:00 Eos % (Auto) 2.6 % (1.5-5.0) 03/17/17 07:00 Baso % (Auto) 0.6 % (0.0-3.0) 03/17/17 07:00 Gran # 4.87 (1.4-6.5) 03/17/17 07:00 Lymph # 2.5 (1.2-3.4) 03/17/17 07:00 [place] # 0.7 (0.1-0.6) H 03/17/17 07:00 Eos # 0.2 (0.0-0.7) 03/17/17 07:00 Baso # 0.05 K/mm3 (0.0-2.0) 03/17/17 07:00 PT 10.5 Seconds (9.9-11.8) 03/14/17 04:00 INR 0.97 (0.93-1.08) 03/14/17 04:00 APTT 24.8 Seconds (23.7-30.8) 03/14/17 04:00 pO2 56 mm/Hg (30-55) H 03/14/17 04:00 VBG pH 7.37 (7.32-7.43) 03/14/17 04:00 VBG pCO2 46.0 (40-60) 03/14/17 04:00 VBG HCO3 26.6 mmol/l (21-28) 03/14/17 04:00 VBG Total CO2 28.0 mmol.L (22-28) 03/14/17 04:00 VBG O2 Sat (Calc) 91.6 % (40-65) H 03/14/17 04:00 VBG Base Excess 0.8 mmol/L (0.0-2.0) 03/14/17 04:00 VBG Potassium 3.6 mmol/L (3.6-5.2) 03/14/17 04:00 Sodium 139.0 mmol/L (132-148) 03/14/17 04:00 Chloride 103.0 mmol/L (98-107) 03/14/17 04:00 Glucose 98 mg/dl (65-105) 03/14/17 04:00 Lactate 1.0 mmol/L (0.7-2.1) 03/14/17 04:00 FiO2 21.0 % 03/14/17 04:00 Sodium 140 mmol/L (132-148) 03/17/17 07:00 Potassium 4.2 mmol/L (3.6-5.0) 03/17/17 07:00 Chloride 105 mmol/L (98-107) 03/17/17 07:00 Carbon Dioxide 25 mmol/L (21-33) 03/17/17 07:00 Anion Gap 14 (10-20) 03/17/17 07:00 BUN 5 mg/dL (7-21) L 03/17/17 07:00 Creatinine 1.0 mg/dL (0.5-1.4) 03/17/17 07:00 Est GFR ( Amer) > 60 03/17/17 07:00 Est GFR (Non-Af Amer) 58 03/17/17 07:00 Random Glucose 85 mg/dL (70-110) 03/17/17 07:00 Calcium 9.9 mg/dL (8.4-10.5) 03/17/17 07:00 Total Bilirubin 0.5 mg/dL (0.2-1.3) 03/17/17 07:00 AST 33 U/L (15-39) 03/17/17 07:00 ALT 26 U/L (7-56) 03/17/17 07:00 Alkaline Phosphatase 59 U/L (38-133) 03/17/17 07:00 Lactate Dehydrogenase 408 U/L (333-699) 03/14/17 04:00 Total Creatine Kinase 70 U/L (35-230) 03/14/17 04:00 Troponin I < 0.01 ng/mL 03/14/17 04:00 Total Protein 8.0 g/dL (5.8-8.3) 03/17/17 07:00 Albumin 4.5 g/dL (3.0-4.8) 03/17/17 07:00 Globulin 3.5 gm/dL 03/17/17 07:00 Albumin/Globulin Ratio 1.3 (1.1-1.8) 03/17/17 07:00 Amylase 136 U/L (35-125) H 03/14/17 04:00 Lipase 59 U/L (23-300) 03/14/17 04:00 Venous Blood Potassium 3.6 mmol/L (3.6-5.2) 03/14/17 04:00 Urine Color Yellow (YELLOW) 03/14/17 04:00 Urine Appearance Clear (CLEAR) 03/14/17 04:00 Urine pH 7.0 (4.7-8.0) 03/14/17 04:00 Ur Specific Flynn 1.010 (1.005-1.035) 03/14/17 04:00 Urine Protein Negative mg/dL (<30 mg/dL) 03/14/17 04:00 Urine Glucose (UA) Negative mg/dL (NEGATIVE) 03/14/17 04:00 Urine Ketones Negative mg/dL (NEGATIVE) 03/14/17 04:00 Urine Blood Negative (NEGATIVE) 03/14/17 04:00 Urine Nitrate Negative (NEGATIVE) 03/14/17 04:00 Urine Bilirubin Negative (NEGATIVE) 03/14/17 04:00 Urine Urobilinogen 0.2 E.U./dL (<1 E.U./dL) 03/14/17 04:00 Ur Leukocyte Esterase Negative Ameya/uL (NEGATIVE) 03/14/17 04:00 Attending/Attestation - Attestation I have personally seen and examined this patient.: Yes I have fully participated in the care of the patient.: Yes I have reviewed all pertinent clinical information, including history, physical exam and plan: Yes Notes (Text): 03/17/17 51 year old female who was admitted for constipation and ileus. She was seen by GI and surgery. Symptoms improved with enema and golytely. Repeat xray showed improved ileus. Her diet was advanced and her symptoms improved. Patient is discharged home to follow up with her pmd. Follow up with GI. Counselled on risks of narcotic abuse. Juanita Singh MD Hospitalist.
[2017-03-17 18:31] VITALS: BP 134/89; PULSE 76; RESP 20; TEMP 97.5; O2SAT 95
== END 2017-03-17 20:44 | disposition home or self-care (01) | DRG 180 ==
LOC: ED 03:38 → ERH 05:38 → 5RSO 07:08 → OBSVTOIN 03-15 09:37 → INTOOBSV 03-15 10:04 → OBSVTOIN 03-15 10:04
PROVIDERS: ADMIT Internal Medicine; ATTEND Internal Medicine
PROC: 3E0F7GC Introduction of Other Therapeutic Substance into Respiratory Tract, Via Natural or Artificial Opening (ICD-10-PCS; principal; 2017-03-14)
DX: K56.7 Ileus, unspecified (principal); K59.00 Constipation, unspecified; K31.84 Gastroparesis; J44.9 Chronic obstructive pulmonary disease, unspecified; G20 Parkinson's disease; I10 Essential (primary) hypertension; E78.5 Hyperlipidemia, unspecified; I73.00 Raynaud's syndrome without gangrene; M81.0 Age-related osteoporosis without current pathological fracture; G25.81 Restless legs syndrome; E03.9 Hypothyroidism, unspecified; F41.9 Anxiety disorder, unspecified; Z90.710 Acquired absence of both cervix and uterus; Z87.891 Personal history of nicotine dependence; Z83.3 Family history of diabetes mellitus; Z82.49 Family history of ischemic heart disease and other diseases of the circulatory system

== ENCOUNTER 2017-03-19 19:53 | Emergency (ER) | payer MEDICAID ==
[2017-03-19 19:53] VITALS: BMI 23.8
[2017-03-19 20:04] VITALS: BP 96/56; PULSE 112; RESP 19; TEMP 98.2; O2SAT 95
[2017-03-19] MEDS ORDERED: Sodium Chloride 0.9% 1,000 ML IV STA (20:13)
--- NOTE | 2017-03-19 20:19 | ED PDOC ---
Arrival/HPI - General Chief Complaint: Abdominal Pain Time Seen by Provider: 03/19/17 20:05 Historian: Patient - History of Present Illness Narrative History of Present Illness (Text): 03/19/17 20:13 51 year old female whose past medical history includes gastroparesis and Parkinson's presents to the emergency department complaining of epigastric pain and nausea for the past week. noted 2 recent visits for ileus. Denies fever. pt reports able to pass gas and stool. PMD: Dr. Mohr 03/19/17 21:08 Time/Duration: < week Symptom Onset: Gradual Symptom Course: Unchanged Modifying Factors (Text): None Past Medical History - Provider Review Nursing Documentation Reviewed: Yes - Infectious Disease Hx of Infectious Diseases: None - Tetanus Immunization Tetanus Immunization: Unknown - Reproductive Menopause: Yes - Cardiac Hx Cardiac Disorders: Yes Hx Hypertension: Yes - Pulmonary Hx Respiratory Disorders: Yes Hx Chronic Obstructive Pulmonary Disease (COPD): Yes - Neurological Hx Neurological Disorder: Yes Hx Dizziness: Yes Hx Parkinson's Disease: Yes - HEENT Hx HEENT Disorder: Yes (TONSILLECTOMY) - Renal Hx Renal Disorder: No - Endocrine/Metabolic Hx Hypothyroidism: Yes - Hematological/Oncological Hx Blood Disorders: Yes Hx Anemia: Yes - Integumentary Hx Dermatological Disorder: No - Musculoskeletal/Rheumatological Hx Musculoskeletal Disorders: Yes Hx Falls: Yes - Gastrointestinal Hx Gastrointestinal Disorders: Yes (APPENDECTOMY,GASTRITIS,GASTROPARESIS, GASTROENTERITIS,) Hx Gastroesophageal Reflux: Yes - Genitourinary/Gynecological Hx Genitourinary Disorders: No (TUBAL LIGATION,HYSTERECTOMY) - Psychiatric Hx Psychophysiologic Disorder: Yes (RX DRUG ABUSE,ETOH ABUSE,SMOKED CIGARETTES QUIT 2 YRS AGO) Hx Anxiety: Yes Hx Depression: Yes Hx Substance Use: Yes (RX DRUG ABUSE) Other/Comment: ANEMIA - Surgical History Hx Appendectomy: Yes Hx Hysterectomy: Yes Hx Tubal Ligation: Yes - Anesthesia Hx Anesthesia: Yes Hx Anesthesia Reactions: No Hx Malignant Hyperthermia: No - Suicidal Assessment Feels Threatened In Home Enviroment: No Family/Social History - Physician Review Nursing Documentation Reviewed: Yes Family/Social History: Unknown Family HX Smoking Status: Former Smoker Hx Alcohol Use: Yes Frequency of alcohol use: Socially Hx Substance Use: Yes (RX DRUG ABUSE) Hx Substance Use Treatment: No Allergies/Home Meds Allergies/Adverse Reactions: Allergies No Known Allergies Allergy (Verified 03/23/17 00:57) Home Medications: Home Meds Medication Instructions Recorded Confirmed Alendronate [Fosamax] 70 mg PO QWK 07/01/16 03/21/17 Atorvastatin [Lipitor] 20 mg PO DAILY 07/01/16 03/21/17 Fluticasone/Salmeterol 250/50 1 puff IH BID 07/01/16 03/21/17 [Advair Diskus 250/50] Ergocalciferol [Drisdol 50,000 50,000 units PO DAILY 11/03/16 03/21/17 Intl Units Cap] Escitalopram [Lexapro] 10 mg PO DAILY 11/03/16 03/21/17 Tiotropium Vendor Inhaler 1 puff INH DAILY 11/03/16 03/21/17 [Spiriva Inhalation Handihaler Device] Review of Systems - Physician Review All systems were reviewed & negative as marked: Yes - Review of Systems Constitutional: absent: Fevers Gastrointestinal: Abdominal Pain, Nausea Neurological: Dizziness Physical Exam Vital Signs Reviewed: Yes Vital Signs Temp Pulse Resp BP Pulse Ox 03/19/17 20:02 98.2 F 112 H 19 96/56 L 95 Temperature: Afebrile Blood Pressure: Hypotensive Pulse: Tachycardic Respiratory Rate: Normal Appearance: Positive for: Well-Appearing, Non-Toxic, Uncomfortable Pain Distress: Mild Mental Status: Positive for: Alert and Oriented X 3 - Systems Exam Head: Present: Atraumatic, Normocephalic Pupils: Present: PERRL Extroacular Muscles: Present: EOMI Conjunctiva: Present: Normal Mouth: Present: Moist Mucous Membranes Neck: Present: Normal Range of Motion Respiratory/Chest: Present: Clear to Auscultation, Good Air Exchange. No: Respiratory Distress, Accessory Muscle Use Cardiovascular: Present: Regular Rate and Rhythm, Normal S1, S2. No: Murmurs Abdomen: Present: Tenderness (Mild epigastric), Normal Bowel Sounds. No: Distention, Peritoneal Signs Back: Present: Normal Inspection Upper Extremity: Present: Normal Inspection. No: Cyanosis, Edema Lower Extremity: Present: Normal Inspection. No: Edema Neurological: Present: GCS=15, CN II-XII Intact, Speech Normal Skin: Present: Warm, Dry, Normal Color. No: Rashes Psychiatric: Present: Alert, Oriented x 3, Normal Insight, Normal Concentration Medical Decision Making ED Course and Treatment: Impression: 51 year old female whose past medical history includes gastroparesis and Parkinson's presents to the emergency department complaining of epigastric pain and nausea for the past week. Differential Diagnosis include but are not limited to: ileus vs gastropareisis vs gastritis, pt with recent neg gallbladder us Plan: -- Toradol, Reglan -- Labs -- Reassess and disposition Prior Visits: Notes and results from previous visits were reviewed. Patient last seen in ED on 03/14/17 for abdominal pain and admitted for Gastroparesis, Intractable abdominal pain. Progress Notes: 03/19/17 21:09 pt initially with mild epigastirc pain and nausea, with h/o of gastroparesis. pt given antiemetic, and pain medication. pt reports improvement in symptoms. given history of recent ileus, pt offered ct scan, but pt now refuses, states she feels well to go home and return with worsening instead of imaging at this time. pt given strict return precations. cr similar to previous. pt notified of results and advised to follow up outpt - Lab Interpretations Lab Results: 03/19/17 20:25 03/19/17 20:25 Lab Results 03/19/17 20:25: Sodium 133, Potassium 3.5 L, Chloride 95 L, Carbon Dioxide 25, Anion Gap 17, BUN 13, Creatinine 2.0 H, Est GFR ( Amer) 32, Est GFR (Non- Af Amer) 26, Random Glucose 92, Calcium 9.3, Total Bilirubin 0.4, AST 33, ALT 17 , Alkaline Phosphatase 50, Total Protein 7.5, Albumin 4.4, Globulin 3.2, Albumin /Globulin Ratio 1.4, Lipase 82 03/19/17 20:25: PT 10.7, INR 0.99, APTT 24.8 03/19/17 20:25: WBC 10.0, RBC 4.14, Hgb 11.0 L, Hct 33.6 L, MCV 81.2, MCH 26.6, MCHC 32.7, RDW 14.3, Plt Count 322, MPV 9.4, Gran % 64.4, Lymph % (Auto) 27.2, [place] % (Auto) 6.2 H, Eos % (Auto) 1.9, Baso % (Auto) 0.3, Gran # 6.47, Lymph # 2.7, [place] # 0.6, Eos # 0.2, Baso # 0.03 - EKG Interpretation Interpreted by ED Physician: Yes (EKG shows NSR at 99 BPM, no ST/T wave changes) Type: 12 lead EKG - Medication Orders Current Medication Orders: Discontinued Medications Sodium Chloride (Sodium Chloride 0.9%) 1,000 mls @ 1,000 mls/hr IV .Q1H STA Stop: 03/19/17 21:12 Last Admin: 03/19/17 20:35 Dose: 1,000 mls/hr Ketorolac Tromethamine (Toradol) 30 mg IVP STAT STA Stop: 03/19/17 20:14 Last Admin: 03/19/17 20:34 Dose: 30 mg Metoclopramide HCl (Reglan) 10 mg IVP STAT STA Stop: 03/19/17 20:14 Last Admin: 03/19/17 20:34 Dose: 10 mg - Scribe Statement The provider has reviewed the documentation as recorded by the Bertha Lr Provider Scribe Attestation: All medical record entries made by the Bertha were at my direction and personally dictated by me. I have reviewed the chart and agree that the record accurately reflects my personal performance of the history, physical exam, medical decision making, and the department course for this patient. I have also personally directed, reviewed, and agree with the discharge instructions and disposition. Disposition/Present on Arrival - Present on Arrival Any Indicators Present on Arrival: No History of DVT/PE: No History of Uncontrolled Diabetes: No Urinary Catheter: No History of Decub. Ulcer: No History Surgical Site Infection Following: None - Disposition Have Diagnosis and Disposition been Completed?: Yes Diagnosis: Abdominal pain Disposition: HOME/ ROUTINE Disposition Time: 10:00 Condition: STABLE Discharge Instructions (ExitCare): Acute Abdominal Pain (ED) Additional Instructions: please follow upw ith your doctor and specialist. return to er with worsening symptoms or concerns. Prescriptions: Famotidine [Pepcid] 20 mg PO DAILY #20 tab Referrals: [facility] [Outside] - Follow up with primary [facility] [Outside] - Follow up with primary Deny Sands MD [Staff Provider] - Follow up with primary Basia Mohr MD [Primary Care Provider] - Follow up with primary
[2017-03-19 20:34] LABS: ADD MANUAL DIFF? NO
[2017-03-19 20:48] LABS: BASO # 0.03 K/mm3 (0.0-2.0); BASO % 0.3 % (0.0-3.0); EOS # 0.2 (0.0-0.7); EOS % 1.9 % (1.5-5.0); GRAN # 6.47 (1.4-6.5); GRAN % 64.4 % (50.0-68.0); HEMATOCRIT 33.6 % (36.0-48.0); LYMPH # 2.7 (1.2-3.4); LYMPH % 27.2 % (22.0-35.0); MEAN CELL VOLUME 81.2 fL (80.0-105.0); MEAN CORPUSCULAR HEMOGLOBIN 26.6 pg (25.0-35.0); MEAN CORPUSCULAR HGB CONC 32.7 g/dl (31.0-37.0); MEAN PLATELET VOLUME 9.4 fl (7.0-11.0); MONO # 0.6 (0.1-0.6); MONO % 6.2 % (1.0-6.0); PLATELET COUNT 322 10^3/uL (120.0-450.0); RED CELL DISTRIBUTION WIDTH 14.3 % (11.5-14.5)
[2017-03-19 20:49] LABS: ALB/GLOB RATIO 1.4 (1.1-1.8); BILIRUBIN,TOTAL 0.4 mg/dL (0.2-1.3); CALCIUM 9.3 mg/dL (8.4-10.5); POTASSIUM 3.5 mmol/L (3.6-5.0); TOTAL PROTEIN 7.5 g/dL (5.8-8.3)
[2017-03-19 21:04] LABS: INR 0.99 (0.93-1.08); PARTIAL THROMBOPLASTIN TIME 24.8 Seconds (23.7-30.8)
--- NOTE | 2017-03-20 20:15 | CARD ---
APPROVED REPORT EKG Measurement Heart [id number] <Conclusion> Normal sinus rhythm Normal ECG
== END 2017-03-19 21:16 | disposition home or self-care (01) ==
LOC: ED 19:53
DX: R10.9 Unspecified abdominal pain (principal); I10 Essential (primary) hypertension; K21.9 Gastro-esophageal reflux disease without esophagitis; K31.84 Gastroparesis; G20 Parkinson's disease; Z87.891 Personal history of nicotine dependence
CPT/HCPCS: 80053; 83690; 85025; 85610; 85730; 93005; 96361; 96374; 96375; 99283; J1885; J2765; J7040

== ENCOUNTER 2017-03-21 02:46 | Observation (INO) | payer MEDICAID ==
--- NOTE | 2017-03-21 03:12 | ED PDOC ---
Arrival/HPI - General Time Seen by Provider: 03/21/17 02:46 Historian: Patient - History of Present Illness Narrative History of Present Illness (Text): 03/21/17 03:12 Shanti Barnes is a 51 year old female, whose past medical history includes gastroparesis, chronic constipation, Raynaud's disease, Parkinson's disease, and COPD, who presents to the Emergency department complaining of upper abdominal pain since yesterday. Patient reports associated nausea, multiple episodes of vomiting, and diarrhea. Patient also reports decreased PO intake. Patient states she took Baclofen at home but denies any significant relief. Patient denies any fever, chills, chest pain, shortness of breath, urinary symptoms, back pain, neck pain, headache, dizziness, or any other complaints. Time/Duration: Other (yesterday) Symptom Onset: Gradual Symptom Course: Unchanged Activities at Onset: Rest, Light Context: Home Past Medical History - Provider Review Nursing Documentation Reviewed: Yes - Infectious Disease Hx of Infectious Diseases: None - Tetanus Immunization Tetanus Immunization: Unknown - Cardiac Hx Cardiac Disorders: Yes Hx Hypertension: Yes - Pulmonary Hx Respiratory Disorders: Yes Hx Chronic Obstructive Pulmonary Disease (COPD): Yes - Neurological Hx Neurological Disorder: Yes Hx Dizziness: Yes Hx Parkinson's Disease: Yes - HEENT Hx HEENT Disorder: Yes (TONSILLECTOMY) - Renal Hx Renal Disorder: No - Endocrine/Metabolic Hx Hypothyroidism: Yes - Hematological/Oncological Hx Blood Disorders: Yes Hx Anemia: Yes - Integumentary Hx Dermatological Disorder: No - Musculoskeletal/Rheumatological Hx Musculoskeletal Disorders: Yes Hx Falls: Yes - Gastrointestinal Hx Gastrointestinal Disorders: Yes (APPENDECTOMY,GASTRITIS,GASTROPARESIS, GASTROENTERITIS,) Hx Gastroesophageal Reflux: Yes - Genitourinary/Gynecological Hx Genitourinary Disorders: No (TUBAL LIGATION,HYSTERECTOMY) - Psychiatric Hx Psychophysiologic Disorder: Yes (RX DRUG ABUSE,ETOH ABUSE,SMOKED CIGARETTES QUIT 2 YRS AGO) Hx Anxiety: Yes Hx Depression: Yes Hx Substance Use: Yes (RX DRUG ABUSE) Other/Comment: ANEMIA - Surgical History Hx Appendectomy: Yes Hx Hysterectomy: Yes Hx Tubal Ligation: Yes - Anesthesia Hx Anesthesia: Yes Hx Anesthesia Reactions: No Hx Malignant Hyperthermia: No - Suicidal Assessment Feels Threatened In Home Enviroment: No Family/Social History - Physician Review Nursing Documentation Reviewed: Yes Family/Social History: Unknown Family HX Smoking Status: Former Smoker Hx Alcohol Use: Yes Hx Substance Use: Yes (RX DRUG ABUSE) Hx Substance Use Treatment: No Allergies/Home Meds Allergies/Adverse Reactions: Allergies No Known Allergies Allergy (Verified 03/19/17 19:59) Home Medications: Home Meds Medication Instructions Recorded Confirmed Alendronate [Fosamax] 70 mg PO QWK 07/01/16 03/21/17 Atorvastatin [Lipitor] 20 mg PO DAILY 07/01/16 03/21/17 Fluticasone/Salmeterol 250/50 1 puff IH BID 07/01/16 03/21/17 [Advair Diskus 250/50] Ergocalciferol [Drisdol 50,000 50,000 units PO DAILY 11/03/16 03/21/17 Intl Units Cap] Escitalopram [Lexapro] 10 mg PO DAILY 11/03/16 03/21/17 Tiotropium [place] Inhaler 1 puff INH DAILY 11/03/16 03/21/17 [Spiriva Inhalation Handihaler Device] Review of Systems - Physician Review All systems were reviewed & negative as marked: Yes - Review of Systems Constitutional: Normal. absent: Fevers Eyes: Normal ENT: Normal Respiratory: Normal. absent: SOB, Cough Cardiovascular: Normal. absent: Chest Pain Gastrointestinal: Abdominal Pain, Diarrhea, Nausea, Vomiting Genitourinary Female: Normal. absent: Dysuria, Frequency, Hematuria, Urine Output Changes Musculoskeletal: Normal. absent: Back Pain, Neck Pain Skin: Normal. absent: Rash Neurological: Normal. absent: Headache, Dizziness Endocrine: Normal Hemo/Lymphatic: Normal Psychiatric: Normal Physical Exam Vital Signs Reviewed: Yes Vital Signs Temp Pulse Resp BP Pulse Ox 03/21/17 02:58 98.3 F 105 H 16 104/63 93 L Temperature: Afebrile Blood Pressure: Normal Pulse: Regular Respiratory Rate: Normal Appearance: Positive for: Well-Appearing, Non-Toxic, Comfortable Pain Distress: None Mental Status: Positive for: Alert and Oriented X 3 Finger Stick Blood Glucose: 99 - Systems Exam Head: Present: Atraumatic, Normocephalic Pupils: Present: PERRL Extroacular Muscles: Present: EOMI Conjunctiva: Present: Normal Mouth: Present: Dry Neck: Present: Normal Range of Motion Respiratory/Chest: Present: Clear to Auscultation, Good Air Exchange. No: Respiratory Distress, Accessory Muscle Use Cardiovascular: Present: Regular Rate and Rhythm, Normal S1, S2. No: Murmurs Abdomen: Present: Normal Bowel Sounds. No: Tenderness, Distention, Peritoneal Signs Back: Present: Normal Inspection Upper Extremity: Present: Normal Inspection. No: Cyanosis, Edema Lower Extremity: Present: Normal Inspection. No: Edema Neurological: Present: GCS=15, CN II-XII Intact, Speech Normal Skin: Present: Warm, Dry, Normal Color. No: Rashes Psychiatric: Present: Alert, Oriented x 3, Normal Insight, Normal Concentration Medical Decision Making ED Course and Treatment: 03/21/17 03:12 Impression: 51 year old female complaining of upper abdominal pain, nausea, vomiting, and diarrhea. Differential Diagnosis included but are not limited to: intractable abdominal pain vs. gastroparesis Plan: -- Labs, lipase -- IV fluids -- Zofran -- Protonix -- Reassess and disposition Prior Visits: Notes and results from previous visits were reviewed. On 03/19/2017, pt was seen in the emergency department for epigastric pain and nausea. Pt was d/c home. Progress Notes: 03/21/17 04:44 Case discussed with medical instrument technician social economist, who is aware and agrees with plan. 03/21/17 05:[address] Bebeto Torres, who is aware and agrees with plan. Accepts pt in to hospitalist service. Pt will Med Surge observation for intractable abdominal pain and gastroparesis. Discussed results and hospital observation plan with pt, who is aware and verbalizes understanding. - Lab Interpretations Lab Results: 03/21/17 03:30 03/21/17 03:30 Lab Results 03/21/17 03:30: WBC 10.3, RBC 3.77, Hgb 9.8 L, Hct 29.5 L, MCV 78.2 L, MCH 26.0 , MCHC 33.2, RDW 13.7, Plt Count 279, MPV 9.2 03/21/17 03:30: Sodium 126 L, Potassium 3.4 L, Chloride 90 L, Carbon Dioxide 22 , Anion Gap 17, BUN 17, Creatinine 1.6 H, Est GFR ( Amer) 41, Est GFR ( Non-Af Amer) 34, Random Glucose 95, Calcium 8.3 L, Total Bilirubin 0.3, AST 33, ALT 19, Alkaline Phosphatase 57, Total Protein 7.0, Albumin 3.9, Globulin 3.1, Albumin/Globulin Ratio 1.3, Lipase 32 03/21/17 02:55: POC Glucose (mg/dL) 99 I have reviewed the lab results: Yes - Medication Orders Current Medication Orders: Discontinued Medications Sodium Chloride (Sodium Chloride 0.9%) 1,000 mls @ 999 mls/hr IV .Q1H1M STA Stop: 03/21/17 04:21 Last Admin: 03/21/17 03:37 Dose: 999 mls/hr Ondansetron HCl (Zofran Inj) 4 mg IVP ONCE ONE Stop: 03/21/17 03:22 Last Admin: 03/21/17 03:34 Dose: 4 mg Pantoprazole Sodium (Protonix Inj) 40 mg IVP ONCE STA Stop: 03/21/17 03:22 Last Admin: 03/21/17 03:34 Dose: 40 mg - Aixaibe Statement The provider has reviewed the documentation as recorded by the Aixaibchristiano Blackburn All medical record entries made by the Aixaibchristiano were at my direction and personally dictated by me. I have reviewed the chart and agree that the record accurately reflects my personal performance of the history, physical exam, medical decision making, and the department course for this patient. I have also personally directed, reviewed, and agree with the discharge instructions and disposition. Disposition/Present on Arrival - Present on Arrival Any Indicators Present on Arrival: No History of DVT/PE: No History of Uncontrolled Diabetes: No Urinary Catheter: No History of Decub. Ulcer: No History Surgical Site Infection Following: None - Disposition Have Diagnosis and Disposition been Completed?: Yes Diagnosis: Gastroparesis, Intractable vomiting Disposition: HOSPITALIZED Disposition Time: 05:01 Patient Plan: Observation Patient Problems: Current Active Problems Problem Status Onset Gastroparesis Acute Intractable vomiting Acute Condition: STABLE Referrals: Basia Mohr MD [Primary Care Provider] - Follow up with primary
[2017-03-21] MEDS ORDERED: Sodium Chloride 0.9% 1,000 ML IV STA (03:21)
[2017-03-21 04:02] LABS: HEMOGLOBIN 9.8 gm/dL (12.0-16.0); MEAN CELL VOLUME 78.2 fL (80.0-105.0); MEAN CORPUSCULAR HGB CONC 33.2 g/dl (31.0-37.0); MEAN PLATELET VOLUME 9.2 fl (7.0-11.0); RBC 3.77 10^6/uL (3.5-6.1); RED CELL DISTRIBUTION WIDTH 13.7 % (11.5-14.5); WHITE BLOOD COUNT 10.3 10^3/ul (4.5-11.0)
[2017-03-21 04:15] LABS: ALB/GLOB RATIO 1.3 (1.1-1.8); ALBUMIN 3.9 g/dL (3.0-4.8); CALCIUM 8.3 mg/dL (8.4-10.5)
--- NOTE | 2017-03-21 05:13 | CP.PCM.HP ---
History of Present Illness - History of Present Illness History of Present Illness: cc: abdominal pain HPI: Patient is a 51yo female with past medical history of COPD, hypertension, hypothyroidism, restless leg syndrome, gastroparesis, anxiety, parkinsons disease and osteoporosis presents c/o abdominal pain. Reports that the abdominal pain is epigastric in nature and associated with nausea and vomiting. She reports having vomiting 4 times earlier this evening. States that her last bowel movement was today and was watery however admits to using laxatives/ enemas at home. She reported that her appetite has been poor as of late. Per chart, she has been seen multiple times recently for the same symptoms. Prior imaging revealed mild ileus (see full reports). Denies chest pain, palpitations , SOB, vomiting, fever, chills, cough. 12point ROS as per HPI above, otherwise negative PMHx: COPD, HTN, Restless leg syndrome, Gastroparesis, Anxiety, Osteoporosis, Parkinsons PSHx: Hysterectomy 2014, Appendectomy, Tonsillectomy Allergies: NKDA Family Hx: CAD, DM on both maternal and paternal first degree relatives; Grandfather: oral cancer Social Hx: Former tobacco use (quit 2 yrs prior, 1/2ppd); Occasional alcohol use ; Denies illicit drug use; lives with fiance Present on Admission - Present on Admission Any Indicators Present on Admission: No Past Patient History - Infectious Disease Hx of Infectious Diseases: None - Tetanus Immunizations Tetanus Immunization: Unknown - Past Social History Smoking Status: Former Smoker - CARDIAC Hx Cardiac Disorders: Yes Hx Hypertension: Yes - PULMONARY Hx Respiratory Disorders: Yes Hx Chronic Obstructive Pulmonary Disease (COPD): Yes - NEUROLOGICAL Hx Neurological Disorder: Yes Hx Dizziness: Yes Hx Parkinson's Disease: Yes - HEENT Hx HEENT Problems: Yes (TONSILLECTOMY) - RENAL Hx Chronic Kidney Disease: No - ENDOCRINE/METABOLIC Hx Hypothyroidism: Yes - HEMATOLOGICAL/ONCOLOGICAL Hx Blood Disorders: Yes Hx Anemia: Yes - INTEGUMENTARY Hx Dermatological Problems: No - MUSCULOSKELETAL/RHEUMATOLOGICAL Hx Musculoskeletal Disorders: Yes Hx Falls: Yes - GASTROINTESTINAL Hx Gastrointestinal Disorders: Yes (APPENDECTOMY,GASTRITIS,GASTROPARESIS, GASTROENTERITIS,) Hx Gastroesophageal Reflux: Yes - GENITOURINARY/GYNECOLOGICAL Hx Genitourinary Disorders: No (TUBAL LIGATION,HYSTERECTOMY) - PSYCHIATRIC Hx Psychophysiologic Disorder: Yes (RX DRUG ABUSE,ETOH ABUSE,SMOKED CIGARETTES QUIT 2 YRS AGO) Hx Anxiety: Yes Hx Depression: Yes Hx Substance Use: Yes (RX DRUG ABUSE) Other/Comment: ANEMIA - SURGICAL HISTORY Hx Appendectomy: Yes Hx Hysterectomy: Yes Hx Tubal Ligation: Yes - ANESTHESIA Hx Anesthesia: Yes Hx Anesthesia Reactions: No Hx Malignant Hyperthermia: No Meds Allergies/Adverse Reactions: Allergies Allergy/AdvReac Type Severity Reaction Status Date / Time No Known Allergies Allergy Verified 03/19/17 19:59 Physical Exam - Constitutional Appears: No Acute Distress, Chronically Ill - Head Exam Head Exam: ATRAUMATIC, NORMAL INSPECTION, NORMOCEPHALIC - Eye Exam Eye Exam: EOMI, PERRL - ENT Exam ENT Exam: Mucous Membranes Dry - Neck Exam Neck exam: Positive for: Normal Inspection - Respiratory Exam Respiratory Exam: Clear to Auscultation Bilateral. absent: Rales, Rhonchi, Wheezes - Cardiovascular Exam Cardiovascular Exam: RRR, +S1, +S2. absent: Gallop, JVD, Rubs - GI/Abdominal Exam GI & Abdominal Exam: Soft, Tenderness (mild epigastric tenderness). absent: Distended, Firm, Guarding, Rigid - Extremities Exam Extremities exam: Positive for: normal inspection. Negative for: calf tenderness - Neurological Exam Neurological exam: Alert, Oriented x3 - Psychiatric Exam Psychiatric exam: Normal Affect, Normal Mood - Skin Skin Exam: Dry, Intact, Normal Color, Warm Results - Vital Signs Recent Vital Signs: Last Vital Signs Temp 98.3 F 03/21/17 02:58 Pulse 105 H 03/21/17 02:58 Resp 16 03/21/17 02:58 BP 104/63 03/21/17 02:58 Pulse Ox 93 L 03/21/17 02:58 - Labs Result Diagrams: 03/21/17 03:30 03/21/17 03:30 Labs: Laboratory Results - last 24 hr 03/21/17 03/21/17 03/21/17 02:55 03:30 03:30 WBC 10.3 RBC 3.77 Hgb 9.8 L Hct 29.5 L MCV 78.2 L MCH 26.0 MCHC 33.2 RDW 13.7 Plt Count 279 MPV 9.2 Sodium 126 L Potassium 3.4 L Chloride 90 L Carbon Dioxide 22 Anion Gap 17 BUN 17 Creatinine 1.6 H Est GFR ( Amer) 41 Est GFR (Non-Af Amer) 34 POC Glucose (mg/dL) 99 Random Glucose 95 Calcium 8.3 L Total Bilirubin 0.3 AST 33 ALT 19 Alkaline Phosphatase 57 Total Protein 7.0 Albumin 3.9 Globulin 3.1 Albumin/Globulin Ratio 1.3 Lipase 32 Assessment & Plan - Assessment and Plan (Free Text) Plan: 51yo female with history of COPD, hypertension, hypothyroidism, restless leg syndrome, gastroparesis, anxiety, and osteoporosis who presenting c/o abdominal pain 1. Abdominal pain -Reviewed prior admissions CT abd/pelvis which showed mild ileus/constipation ( please refer to full reports) -Abd US and HIDA scan done on prior admission were negative for GB pathology -Lipase within normal limits -Zofran 4mg q4h PRN for nausea/vomiting -NPO -GI consulted - Dr. Sands 2. Hyponatremia -Workup pending: Serum Osm/Urine Osm/Urine Na -Continue with IVF hydration with NS @100cc/hr 3. COPD -Continue home inhalers 4. Hypothyroidism -Continue home synthroid 5. Parkinsons -Continue home sinemet 6. GI/DVT -Protonix/SCD's Patient seen and case discussed with attending, Dr. Torres - Date & Time Date: 03/21/17 Time: 05:15
[2017-03-21] MEDS ORDERED: Albuterol 0.042% Inhal Sol (1.25 mg/3 mL) UD IH PRN (05:15)
[2017-03-21] MEDS ORDERED: POLYETHYLENE GLYCOL 3350 17 GM/Dose PACKET PO PRN (05:15)
[2017-03-21] MEDS ORDERED: Albuterol-Ipratrop 3 mg / 0.5 (3 ml) UD IH PRN (05:20)
[2017-03-21] MEDS ORDERED: Sodium Chloride 0.9% 1,000 ML IV SCH (05:45)
[2017-03-21 07:05] LABS: MAGNESIUM 2.4 mg/dL (1.7-2.2)
[2017-03-21] MEDS ORDERED: Levothyroxine 50 MCG TAB PO SCH (07:30)
[2017-03-21] MEDS: Tiotropium 18 mcg Cap For Inhalation IH SCH (09:17)
[2017-03-21] MEDS: Bisacodyl 5mg EC Tab PO SCH ×2 (09:19→17:42)
[2017-03-21] MEDS: Carbidopa/Levodopa 25/250 PO SCH ×3 (09:20→17:42)
[2017-03-21] MEDS: Multivitamin Therapeutic Tab PO SCH (09:20)
[2017-03-21] MEDS ORDERED: Fluticasone-Salmeterol 250-50mcg Diskus IH SCH (10:00)
[2017-03-21] MEDS ORDERED: Levothyroxine 25 MCG TAB PO SCH (10:03)
[2017-03-21] MEDS: Arformoterol 15 mcg/2 ml Inh Sol IH SCH ×2 (13:26→21:10)
[2017-03-21] MEDS: Budesonide 0.5 mg/2 ml Inhal Susp UD IH SCH ×2 (13:26→21:10)
[2017-03-21 13:28] VITALS: BMI 29.2
[2017-03-21 13:33] LABS: URINE BILIRUBIN NEGATIVE (NEGATIVE); URINE BLOOD TRACE-LYSED (NEGATIVE); URINE GLUCOSE (UA) NEGATIVE (NEGATIVE); URINE LEUKOCYTE ESTERASE NEGATIVE Leu/uL (NEGATIVE); URINE NITRATE NEGATIVE (NEGATIVE); URINE PROTEIN NEGATIVE mg/dL (<30 mg/dL); URINE UROBILINOGEN 0.2 E.U./dL (<1 E.U./dL)
[2017-03-21 13:36] LABS: URINE APPEARANCE CLEAR (CLEAR); URINE COLOR YELLOW (YELLOW)
[2017-03-21 13:51] LABS: URINE EPITHELIAL CELLS 0 - 2 /hpf (0-5); URINE WBC 0 - 2 /hpf (0-6)
[2017-03-21 14:40] LABS: OSMOLALITY,URINE 123 mosm/kg (50-645)
--- NOTE | 2017-03-21 15:26 | RAD ---
HISTORY: Abdominal pain and vomiting. COMPARISON: 03/17/2017 FINDINGS: BOWEL: Normal. No obstruction. No free air. Continued decrease in distention of the colon. BONES: Normal. OTHER FINDINGS: None. IMPRESSION: No acute findings related to/accounting for the clinical presentation.
[2017-03-22] MEDS: Arformoterol 15 mcg/2 ml Inh Sol IH SCH (07:20)
[2017-03-22] MEDS: Budesonide 0.5 mg/2 ml Inhal Susp UD IH SCH (07:20)
[2017-03-22 08:27] LABS: BASO # 0.02 K/mm3 (0.0-2.0); BASO % 0.3 % (0.0-3.0); EOS # 0.1 (0.0-0.7); EOS % 1.9 % (1.5-5.0); GRAN # 4.12 (1.4-6.5); GRAN % 65.3 % (50.0-68.0); LYMPH # 1.5 (1.2-3.4); LYMPH % 23.3 % (22.0-35.0); MEAN CELL VOLUME 79.5 fL (80.0-105.0); MEAN CORPUSCULAR HEMOGLOBIN 25.9 pg (25.0-35.0); MEAN CORPUSCULAR HGB CONC 32.5 g/dl (31.0-37.0); MEAN PLATELET VOLUME 9.2 fl (7.0-11.0); MONO # 0.6 (0.1-0.6); MONO % 9.2 % (1.0-6.0); PLATELET COUNT 292 10^3/uL (120.0-450.0); RBC 4.25 10^6/uL (3.5-6.1); RED CELL DISTRIBUTION WIDTH 14.1 % (11.5-14.5); WHITE BLOOD COUNT 6.3 10^3/ul (4.5-11.0)
[2017-03-22 08:44] LABS: ALB/GLOB RATIO 1.3 (1.1-1.8); ALBUMIN 4.3 g/dL (3.0-4.8); ALT/SGPT 23 U/L (7-56); AST/SGOT 52 U/L (15-39); BLOOD UREA NITROGEN 8 mg/dL (7-21); CALCIUM 8.4 mg/dL (8.4-10.5); GFR AFRICAN-AMERICAN > 60; GFR NON-AFRICAN AMERICAN 52
[2017-03-22] MEDS ORDERED: Potassium Chloride 20 mEq ER Tab PO STA (09:07)
[2017-03-22] MEDS: Carbidopa/Levodopa 25/250 PO SCH (09:25)
[2017-03-22] MEDS: Multivitamin Therapeutic Tab PO SCH (09:26)
[2017-03-22] MEDS: Tiotropium 18 mcg Cap For Inhalation IH SCH (09:27)
[2017-03-22] MEDS ORDERED: Potassium Chloride 10 mEq ER Tab PO SCH (12:00)
--- NOTE | 2017-03-22 16:06 | CP.PCM.DIS ---
Provider - Provider Date of Admission: 03/21/17 05:02 Attending physician: Savi De Oliveira MD Primary care physician: Basia Mohr MD Time Spent in preparation of Discharge (in minutes): 35 Hospital Course - Lab Results Lab Results: Most Recent Lab Values WBC 6.3 10^3/ul (4.5-11.0) D 03/22/17 05:00 RBC 4.25 10^6/uL (3.5-6.1) 03/22/17 05:00 Hgb 11.0 gm/dL (12.0-16.0) L 03/22/17 05:00 Hct 33.8 % (36.0-48.0) L 03/22/17 05:00 MCV 79.5 fL (80.0-105.0) L 03/22/17 05:00 MCH 25.9 pg (25.0-35.0) 03/22/17 05:00 MCHC 32.5 g/dl (31.0-37.0) 03/22/17 05:00 RDW 14.1 % (11.5-14.5) 03/22/17 05:00 Plt Count 292 10^3/uL (120.0-450.0) 03/22/17 05:00 MPV 9.2 fl (7.0-11.0) 03/22/17 05:00 Gran % 65.3 % (50.0-68.0) 03/22/17 05:00 Lymph % (Auto) 23.3 % (22.0-35.0) 03/22/17 05:00 [place] % (Auto) 9.2 % (1.0-6.0) H 03/22/17 05:00 Eos % (Auto) 1.9 % (1.5-5.0) 03/22/17 05:00 Baso % (Auto) 0.3 % (0.0-3.0) 03/22/17 05:00 Gran # 4.12 (1.4-6.5) 03/22/17 05:00 Lymph # 1.5 (1.2-3.4) 03/22/17 05:00 [place] # 0.6 (0.1-0.6) 03/22/17 05:00 Eos # 0.1 (0.0-0.7) 03/22/17 05:00 Baso # 0.02 K/mm3 (0.0-2.0) 03/22/17 05:00 Sodium 139 mmol/L (132-148) 03/22/17 05:00 Potassium 3.0 mmol/L (3.6-5.0) L 03/22/17 05:00 Chloride 106 mmol/L (98-107) 03/22/17 05:00 Carbon Dioxide 22 mmol/L (21-33) 03/22/17 05:00 Anion Gap 14 (10-20) 03/22/17 05:00 BUN 8 mg/dL (7-21) 03/22/17 05:00 Creatinine 1.1 mg/dL (0.5-1.4) 03/22/17 05:00 Est GFR ( Amer) > 60 03/22/17 05:00 Est GFR (Non-Af Amer) 52 03/22/17 05:00 POC Glucose (mg/dL) 99 mg/dL (65-110) 03/21/17 02:55 Random Glucose 82 mg/dL (70-110) 03/22/17 05:00 Serum Osmolality 287 mosm/kg (271-296) 03/21/17 06:30 Calcium 8.4 mg/dL (8.4-10.5) 03/22/17 05:00 Phosphorus 1.8 mg/dL (2.5-4.5) L 03/21/17 03:30 Magnesium 2.4 mg/dL (1.7-2.2) H 03/21/17 03:30 Total Bilirubin 0.9 mg/dL (0.2-1.3) 03/22/17 05:00 AST 52 U/L (15-39) H 03/22/17 05:00 ALT 23 U/L (7-56) 03/22/17 05:00 Alkaline Phosphatase 66 U/L (38-133) 03/22/17 05:00 Total Protein 7.7 g/dL (5.8-8.3) 03/22/17 05:00 Albumin 4.3 g/dL (3.0-4.8) 03/22/17 05:00 Globulin 3.4 gm/dL 03/22/17 05:00 Albumin/Globulin Ratio 1.3 (1.1-1.8) 03/22/17 05:00 Lipase 32 U/L (23-300) 03/21/17 03:30 TSH 3rd Generation 0.18 mIU/mL (0.46-4.68) L 03/21/17 06:30 Urine Color Yellow (YELLOW) 03/21/17 13:16 Urine Appearance Clear (CLEAR) 03/21/17 13:16 Urine pH 7.0 (4.7-8.0) 03/21/17 13:16 Ur Specific [place] <= 1.005 (1.005-1.035) 03/21/17 13:16 Urine Protein Negative mg/dL (<30 mg/dL) 03/21/17 13:16 Urine Glucose (UA) Negative mg/dL (NEGATIVE) 03/21/17 13:16 Urine Ketones Negative mg/dL (NEGATIVE) 03/21/17 13:16 Urine Blood Trace-lysed (NEGATIVE) H 03/21/17 13:16 Urine Nitrate Negative (NEGATIVE) 03/21/17 13:16 Urine Bilirubin Negative (NEGATIVE) 03/21/17 13:16 Urine Urobilinogen 0.2 E.U./dL (<1 E.U./dL) 03/21/17 13:16 Ur Leukocyte Esterase Negative [place]/uL (NEGATIVE) 03/21/17 13:16 Urine RBC 1 - 3 /hpf (0-2) 03/21/17 13:16 Urine WBC 0 - 2 /hpf (0-6) 03/21/17 13:16 Ur Epithelial Cells 0 - 2 /hpf (0-5) 03/21/17 13:16 Urine Osmolality 123 mosm/kg (50-645) 03/21/17 13:16 Ur Random Sodium 28 meq/L 03/21/17 13:16 Ur Random Potassium 3.3 meq/L 03/21/17 13:16 Urine HCG, Qual Negative (NEGATIVE) 03/21/17 13:16 Alcohol, Quantitative 48 mg/dL (0-10) H 03/21/17 06:30 - Hospital Course Hospital Course: CC: Abdominal Pain. Patient is a 51 year old female w a PMH of COPD, HTN, Hypothyroidism, restless leg syndrome, gastroparesis, anxiety, parkinsons, and osteoporosis. She presented to the ED Complaining of Abdominal pain and vomitting. GI was consulted (Dr. Sands) and she was given Zofran, and made NPO. Abdominal X-ray was ordered and showed no acute findings. She was found to be hyponatremic, and was given given IV hydration with NS, which has resolved. She was continued on all her home medications. Her abdominal pain and Nausea has resolved, and she is tolerating diet. Patient offered protonix and denied it stating that she has the medication at home Home Medications were discussed with patient and agreed to. Discharge Exam - Head Exam Head Exam: ATRAUMATIC, NORMAL INSPECTION, NORMOCEPHALIC Discharge Plan - Follow Up Plan Condition: STABLE Disposition: HOME/ ROUTINE Instructions: Gastritis (GEN)
[2017-03-22 16:21] VITALS: BP 141/99; PULSE 90; RESP 20; TEMP 97.8; O2SAT 98
== END 2017-03-22 19:04 | disposition home or self-care (01) ==
LOC: ED 02:46 → ERH 05:02 → 5RNO 07:25
PROVIDERS: ADMIT Internal Medicine; ATTEND Internal Medicine
DX: K31.84 Gastroparesis (principal); F10.20 Alcohol dependence, uncomplicated; Y90.2 Blood alcohol level of 40-59 mg/100 ml; J44.9 Chronic obstructive pulmonary disease, unspecified; I73.00 Raynaud's syndrome without gangrene; G20 Parkinson's disease; M81.0 Age-related osteoporosis without current pathological fracture; I10 Essential (primary) hypertension; G25.81 Restless legs syndrome; E03.9 Hypothyroidism, unspecified; F41.9 Anxiety disorder, unspecified; E87.1 Hypo-osmolality and hyponatremia; Z90.710 Acquired absence of both cervix and uterus; Z87.891 Personal history of nicotine dependence; Z98.51 Tubal ligation status; Z90.49 Acquired absence of other specified parts of digestive tract
CPT/HCPCS: 36415; 74022; 80053; 80320; 81001; 82436; 82948; 83690; 83735; 83930; 83935; 84100; 84132; 84300; 84443; 84703; 85025; 85027; 94640; 94760; 96361; 96374; 96375; 96376; 99285; C9113; G0378; J2405; J2765; J7040

== ENCOUNTER 2017-03-23 00:51 | Observation (INO) | payer MEDICAID ==
[2017-03-23 00:51] VITALS: BMI 29.2
[2017-03-23 01:02] VITALS: TEMP 98.8
--- NOTE | 2017-03-23 01:15 | ED PDOC ---
Arrival/HPI - General Chief Complaint: Medical Clearance Time Seen by Provider: 03/23/17 00:57 Historian: Patient - History of Present Illness Narrative History of Present Illness (Text): 03/23/17 01:10 Shanti Barnes is a 51 year old female, whose past medical history includes gastroparesis, Raynaud's disease, Parkinson's disease, and COPD, was brought to the emergency department via EMS because patient was acting in a bizarre manner. Patient was found strolling up and down a hallway. Patient appears inebriated, and per collateral information, suggests that she has been drinking tonight. Patient is awake, alert,with slurred speech,AOB. Denies chest pain, shortness of breath, nausea, vomiting, diarrhea, or any other complaints.Denies SI/HI. Time/Duration: 1-3 hours Symptom Onset: Gradual Severity Level: Mild Activities at Onset: Light Context: Home Past Medical History - Provider Review Nursing Documentation Reviewed: Yes - Infectious Disease Hx of Infectious Diseases: None - Tetanus Immunization Tetanus Immunization: Unknown - Reproductive Menopause: Yes - Cardiac Hx Cardiac Disorders: Yes Hx Hypertension: Yes - Pulmonary Hx Respiratory Disorders: Yes Hx Chronic Obstructive Pulmonary Disease (COPD): Yes - Neurological Hx Neurological Disorder: Yes Hx Dizziness: Yes Hx Parkinson's Disease: Yes - HEENT Hx HEENT Disorder: Yes (TONSILLECTOMY) - Renal Hx Renal Disorder: No - Endocrine/Metabolic Hx Hypothyroidism: Yes - Hematological/Oncological Hx Blood Disorders: Yes Hx Anemia: Yes - Integumentary Hx Dermatological Disorder: No - Musculoskeletal/Rheumatological Hx Falls: Yes - Gastrointestinal Hx Gastrointestinal Disorders: Yes (APPENDECTOMY,GASTRITIS,GASTROPARESIS, GASTROENTERITIS,) Hx Gastroesophageal Reflux: Yes - Genitourinary/Gynecological Hx Genitourinary Disorders: No (TUBAL LIGATION,HYSTERECTOMY) - Psychiatric Hx Psychophysiologic Disorder: Yes (RX DRUG ABUSE,ETOH ABUSE,SMOKED CIGARETTES QUIT 2 YRS AGO) Hx Anxiety: Yes Hx Depression: Yes Hx Substance Use: Yes (RX DRUG ABUSE) Other/Comment: ANEMIA - Surgical History Hx Appendectomy: Yes Hx Hysterectomy: Yes - Anesthesia Hx Anesthesia: Yes Hx Anesthesia Reactions: No Hx Malignant Hyperthermia: No - Suicidal Assessment Feels Threatened In Home Enviroment: No Family/Social History - Physician Review Nursing Documentation Reviewed: Yes Family/Social History: No Known Family HX Smoking Status: Former Smoker Hx Alcohol Use: Yes (social) Hx Substance Use: Yes (RX DRUG ABUSE) Hx Substance Use Treatment: No Allergies/Home Meds Allergies/Adverse Reactions: Allergies No Known Allergies Allergy (Verified 03/23/17 00:57) Home Medications: Home Meds Medication Instructions Recorded Confirmed Alendronate [Fosamax] 70 mg PO QWK 07/01/16 03/21/17 Atorvastatin [Lipitor] 20 mg PO DAILY 07/01/16 03/21/17 Fluticasone/Salmeterol 250/50 1 puff IH BID 07/01/16 03/21/17 [Advair Diskus 250/50] Ergocalciferol [Drisdol 50,000 50,000 units PO DAILY 11/03/16 03/21/17 Intl Units Cap] Escitalopram [Lexapro] 10 mg PO DAILY 11/03/16 03/21/17 Tiotropium [place] Inhaler 1 puff INH DAILY 11/03/16 03/21/17 [Spiriva Inhalation Handihaler Device] Review of Systems - Physician Review All systems were reviewed & negative as marked: Yes - Review of Systems Constitutional: Normal. absent: Fatigue, Fevers Respiratory: Normal. absent: SOB, Cough, Sputum Cardiovascular: Normal. absent: Chest Pain, Palpitations Gastrointestinal: Normal. absent: Abdominal Pain, Diarrhea, Nausea, Vomiting Genitourinary Female: Normal. absent: Dysuria Neurological: Normal. absent: Headache, Dizziness Psychiatric: Other (bizarre behavior ) Physical Exam Vital Signs Reviewed: Yes Vital Signs Temp Pulse Resp BP Pulse Ox 03/23/17 02:51 105 H 20 150/92 H 94 L 03/23/17 00:58 98.8 F 105 H 20 132/73 94 L Temperature: Afebrile Blood Pressure: Normal Pulse: Tachycardic Respiratory Rate: Normal Appearance: Positive for: Comfortable Pain Distress: None Mental Status: Positive for: Alert and Oriented X 3 - Systems Exam Head: Present: Atraumatic, Normocephalic Pupils: Present: PERRL Extroacular Muscles: Present: EOMI Conjunctiva: Present: Normal Mouth: Present: Moist Mucous Membranes Neck: Present: Normal Range of Motion. No: MIDLINE TENDERNESS, Paraspinal Tenderness Respiratory/Chest: Present: Clear to Auscultation, Good Air Exchange. No: Respiratory Distress, Accessory Muscle Use Cardiovascular: Present: Regular Rate and Rhythm, Normal S1, S2. No: Murmurs Abdomen: Present: Normal Bowel Sounds. No: Tenderness, Distention, Peritoneal Signs, Rebound, Guarding Back: Present: Normal Inspection Upper Extremity: Present: Normal Inspection. No: Cyanosis, Edema Lower Extremity: Present: Normal Inspection. No: Edema Neurological: Present: GCS=15, CN II-XII Intact, Motor Func Grossly Intact, Normal Sensory Function. No: Speech Normal (slurred speech ) Skin: Present: Warm, Dry, Normal Color. No: Rashes Psychiatric: Present: Alert, Oriented x 3, Intoxicated. No: Suicidal Ideation, Homicidal Ideation Medical Decision Making ED Course and Treatment: 03/23/17 01:18 Impression: A 51 year old female who presents to the emergency department via EMS for bizarre behavior. Plan: -- EKG -- Labs -- Alcohol level -- Drug screen -- CXR Progress Notes: 03/23/17 01:19 - Lab Interpretations Lab Results: 03/23/17 01:20 03/23/17 01:20 Lab Results 03/23/17 01:20: Alcohol, Quantitative 169 H 03/23/17 01:20: Sodium 133, Potassium 5.0, Chloride 104, Carbon Dioxide 17 L, Anion Gap 17, BUN 5 L, Creatinine 1.1, Est GFR ( Amer) > 60, Est GFR (Non -Af Amer) 52, Random Glucose 97, Calcium 8.7, Total Bilirubin 0.3, AST 54 H, ALT 24, Alkaline Phosphatase 64, Total Protein 7.5, Albumin 4.4, Globulin 3.1, Albumin/Globulin Ratio 1.4 03/23/17 01:20: WBC 7.5, RBC 3.94, Hgb 10.4 L, Hct 31.5 L, MCV 79.9 L, MCH 26.4 , MCHC 33.0, RDW 14.3, Plt Count 292, MPV 9.2 03/23/17 00:00: Urine Opiates Screen Negative, Urine Methadone Screen Negative, Ur Barbiturates Screen Negative, Ur Phencyclidine Scrn Negative, Ur Amphetamines Screen Negative, U Benzodiazepines Scrn Negative, U Oth Cocaine Metabols Negative, U Cannabinoids Screen Negative - RAD Interpretation Radiology Orders: 03/23/17 01:12 CHEST PORTABLE [RAD] Stat ED OBSERVATION Discharge: Yes Date of observation admission: 03/23/17 Time of observation admission: 01:00 - Observation admission statement Patient is being placed in observation because:: alcohol intoxication - Goals of Observation Goals of observation are:: Observe for sobriety/PES evaluation - Progress Note Progress Note: 03/23/17 06:12 Pt. awake alert,sober.Was seen and evaluated by GIRMA Scott.Pt. cleared for discharge and out patient follow up. - Scribe Statement The provider has reviewed the documentation as recorded by the Bertha Rivas Provider Attestation: All medical record entries made by the Bertha were at my direction and personally dictated by me. I have reviewed the chart and agree that the record accurately reflects my personal performance of the history, physical exam, medical decision making, and the department course for this patient. I have also personally directed, reviewed, and agree with the discharge instructions and disposition. Disposition/Present on Arrival - Present on Arrival Any Indicators Present on Arrival: No History of DVT/PE: No History of Uncontrolled Diabetes: No Urinary Catheter: No History of Decub. Ulcer: No History Surgical Site Infection Following: None - Disposition Have Diagnosis and Disposition been Completed?: Yes Diagnosis: Alcohol intoxication Disposition: HOME/ ROUTINE Disposition Time: 06:15 Patient Plan: Discharge Patient Problems: Current Active Problems Problem Status Onset Alcohol intoxication Acute Condition: STABLE Referrals: Basia Mohr MD [Primary Care Provider] - Follow up with primary
[2017-03-23 01:36] LABS: HEMOGLOBIN 10.4 gm/dL (12.0-16.0); MEAN CELL VOLUME 79.9 fL (80.0-105.0); MEAN CORPUSCULAR HEMOGLOBIN 26.4 pg (25.0-35.0); MEAN PLATELET VOLUME 9.2 fl (7.0-11.0); RBC 3.94 10^6/uL (3.5-6.1); RED CELL DISTRIBUTION WIDTH 14.3 % (11.5-14.5); WHITE BLOOD COUNT 7.5 10^3/ul (4.5-11.0)
[2017-03-23 01:52] LABS: ALB/GLOB RATIO 1.4 (1.1-1.8); ALBUMIN 4.4 g/dL (3.0-4.8); ALT/SGPT 24 U/L (7-56); AST/SGOT 54 U/L (15-39); BLOOD UREA NITROGEN 5 mg/dL (7-21); CALCIUM 8.7 mg/dL (8.4-10.5); GFR AFRICAN-AMERICAN > 60; GFR NON-AFRICAN AMERICAN 52
[2017-03-23 04:24] LABS: BARBITURATES, UR NEGATIVE (NEGATIVE); BENZODIAZEPINES, UR NEGATIVE (NEGATIVE); OPIATES, UR NEGATIVE (NEGATIVE); PHENCYCLIDINE, UR NEGATIVE (NEGATIVE)
[2017-03-23 06:38] VITALS: BP 132/74; PULSE 85; RESP 18; O2SAT 98
--- NOTE | 2017-03-23 10:59 | RAD ---
HISTORY: medical clearance COMPARISON: 01/29/2017 FINDINGS: LUNGS: No active pulmonary disease. PLEURA: No significant pleural effusion identified, no pneumothorax apparent. CARDIOVASCULAR: Normal. OSSEOUS STRUCTURES: No significant abnormalities. VISUALIZED UPPER ABDOMEN: Normal. OTHER FINDINGS: None. IMPRESSION: No active disease.
== END 2017-03-23 06:13 | disposition home or self-care (01) ==
LOC: ED 00:51 → EROBSV 01:00
PROVIDERS: ADMIT Emergency Medicine; ATTEND Emergency Medicine
DX: F10.129 Alcohol abuse with intoxication, unspecified (principal); Y90.6 Blood alcohol level of 120-199 mg/100 ml; I10 Essential (primary) hypertension; G20 Parkinson's disease; Z87.891 Personal history of nicotine dependence
CPT/HCPCS: 71010; 80053; 80320; 80324; 80345; 80346; 80349; 80353; 80358; 80361; 83992; 85027; 99283; G0378

== ENCOUNTER 2017-04-07 18:24 | Emergency (ER) | payer MEDICAID ==
[2017-04-07 18:36] VITALS: BMI 24.7
[2017-04-07 18:41] VITALS: RESP 18; TEMP 97.5; O2SAT 98
--- NOTE | 2017-04-07 19:20 | ED PDOC ---
Arrival/HPI <Rodrigo Thomas - Last Filed: 04/07/17 22:26> <Amirah Garcia - Last Filed: 04/07/17 22:47> - General Chief Complaint: Abdominal Pain Time Seen by Provider: 04/07/17 18:31 - History of Present Illness Narrative History of Present Illness (Text): 04/07/17 19:20 This patient is a 51yo female with past medical history of COPD, hypertension, hypothyroidism, restless leg syndrome, gastroparesis, anxiety, parkinsons disease and osteoporosis who is coming in for a 2d history of nausea and vomiting, non-bloody non bilious, and states she cannot keep anything down. She states she is passing flatus. She was here 2 weeks ago for the same complaint, but was found to be intoxicated and was discharged home and encouraged to follow up as an outpatient. [place] [facility] shows that she is filling multiple benzodiazepines and tylenol with codeine, which is known to cause extreme constipation and nausea/vomiting, as well as tramadol filled on 03/25/17. Her last EGD was two years ago, which showed mild changes and gastroparesis. Dr. Rebollar recommended aggressive bowel management with miralax, Lactulose, fleet enema, dulculax po BID, dolculax rc qd which the patient has not been maintaining as an outpatient. The patient currently denies any fevers/chills, headache, cp, sob, abdominal pain, diarrhea, lower extremity pain/swelling. (Rodrigo Thomas) Past Medical History - Provider Review Nursing Documentation Reviewed: Yes - Travel History Have you recently traveled outside [place] w/in the past 3 mons?: No - Past History Past History: No Previous - Infectious Disease Hx of Infectious Diseases: None - Tetanus Immunization Tetanus Immunization: Unknown - Reproductive Menopause: Yes - Cardiac Hx Cardiac Disorders: Yes Hx Hypertension: Yes - Pulmonary Hx Respiratory Disorders: Yes Hx Chronic Obstructive Pulmonary Disease (COPD): Yes - Neurological Hx Neurological Disorder: Yes Hx Dizziness: Yes Hx Parkinson's Disease: Yes - HEENT Hx HEENT Disorder: Yes (TONSILLECTOMY) - Renal Hx Renal Disorder: No - Endocrine/Metabolic Hx Hypothyroidism: Yes - Hematological/Oncological Hx Blood Disorders: Yes Hx Anemia: Yes - Integumentary Hx Dermatological Disorder: No - Musculoskeletal/Rheumatological Hx Musculoskeletal Disorders: Yes Hx Falls: Yes - Gastrointestinal Hx Gastrointestinal Disorders: Yes (APPENDECTOMY,GASTRITIS,GASTROPARESIS, GASTROENTERITIS,) Hx Gastroesophageal Reflux: Yes - Genitourinary/Gynecological Hx Genitourinary Disorders: No (TUBAL LIGATION,HYSTERECTOMY) - Psychiatric Hx Psychophysiologic Disorder: Yes (RX DRUG ABUSE,ETOH ABUSE,SMOKED CIGARETTES QUIT 2 YRS AGO) Hx Anxiety: Yes Hx Depression: Yes Hx Substance Use: Yes (RX DRUG ABUSE) Other/Comment: ANEMIA - Surgical History Hx Appendectomy: Yes Hx Hysterectomy: Yes Hx Tonsillectomy: Yes Hx Tubal Ligation: Yes - Anesthesia Hx Anesthesia: Yes Hx Anesthesia Reactions: No Hx Malignant Hyperthermia: No - Suicidal Assessment Feels Threatened In Home Enviroment: No <Rodrigo Thomas - Last Filed: 04/07/17 22:26> Family/Social History - Physician Review Nursing Documentation Reviewed: Yes Family/Social History: CVA/TIA, Diabetes, Hypertension Smoking Status: Former Smoker Hx Alcohol Use: Yes (social) Hx Substance Use: Yes (RX DRUG ABUSE) Hx Substance Use Treatment: No <Rodrigo Thomas - Last Filed: 04/07/17 22:26> Allergies/Home Meds <Rodrigo Thomas - Last Filed: 04/07/17 22:26> <Amirah Garcia - Last Filed: 04/07/17 22:47> Allergies/Adverse Reactions: Allergies No Known Allergies Allergy (Verified 04/07/17 18:36) Home Medications: Home Meds Medication Instructions Recorded Confirmed Alendronate [Fosamax] 70 mg PO QWK 07/01/16 04/07/17 Atorvastatin [Lipitor] 20 mg PO DAILY 07/01/16 04/07/17 Fluticasone/Salmeterol 250/50 1 puff IH BID 07/01/16 04/07/17 [Advair Diskus 250/50] Tiotropium [place] Inhaler 1 puff INH DAILY 11/03/16 04/07/17 [Spiriva Inhalation Handihaler Device] Review of Systems - Review of Systems Constitutional: Normal Eyes: Normal ENT: Normal Respiratory: Normal Cardiovascular: Normal Gastrointestinal: Stool Changes, Constipation, Nausea, Vomiting. absent: Abdominal Pain, Diarrhea Genitourinary Female: Normal Musculoskeletal: Normal Skin: Normal Neurological: Normal Endocrine: Normal Hemo/Lymphatic: Normal Psychiatric: Normal <Rodrigo Thomas - Last Filed: 04/07/17 22:26> Physical Exam Temperature: Afebrile Blood Pressure: Normal Pulse: Regular Respiratory Rate: Normal Appearance: Positive for: Well-Appearing Pain Distress: None Mental Status: Positive for: Alert and Oriented X 3 - Systems Exam Head: Present: Atraumatic Pupils: Present: PERRL Extroacular Muscles: Present: EOMI Conjunctiva: Present: Normal Mouth: Present: Moist Mucous Membranes Neck: Present: Normal Range of Motion Respiratory/Chest: Present: Clear to Auscultation, Good Air Exchange. No: Respiratory Distress, Accessory Muscle Use, Tachypneic Cardiovascular: Present: Regular Rate and Rhythm. No: Murmurs Abdomen: Present: Normal Bowel Sounds. No: Tenderness, Distention, Peritoneal Signs, Rebound, Guarding Upper Extremity: Present: Normal Inspection. No: Cyanosis, Edema Lower Extremity: Present: Normal Inspection. No: Edema Neurological: Present: GCS=15, CN II-XII Intact, Speech Normal (patient has resting tremor that gets worse with movement, blank facies) Skin: Present: Warm <AnelMariuszmoniqueRodrigo almanzar - Last Filed: 04/07/17 22:26> Vital Signs Reviewed: Yes <RadhaFelizjc - Last Filed: 04/07/17 22:47> Vital Signs Temp Pulse Resp BP Pulse Ox 04/07/17 18:39 97.5 F L 89 18 122/86 98 Medical Decision Making <AnelvinnieRodrigo - Last Filed: 04/07/17 22:26> <Amirah Garcia - Last Filed: 04/07/17 22:47> ED Course and Treatment: 04/07/17 19:[address] w/ PO contrast CBC CMP Lipase Urinalysis Zofran; avoid reglan 2/2 to parkinsons Patient is currently resting comfortably in bed even though is complaining of pain. Exam is largely benign Patient denies taking any narcotic medications or previously being intoxicated even though documented as such Reassess and disposition 04/07/17 20:47 CBC and CMP largely unremarkable; mild elevation of calcium and low chloride but at patients baseline Urinalysis negative Awaiting CT Scan patient resting comfortably in bed no episodes of N/V 04/07/17 22:26 CT scan showed the following 1. No definite acute intraabdominal abnormality. 2. Incidental/non-acute findings are described above. 04/07/17 22:29 The patient is stable to go home as per Dr. Garcia She will be prescribed the following stool softeners as per Dr. Rebollar in his last note -Lactulose 30mg daily -Dulcolax BID -Miralax Daily -Fleet enemas as needed The patient was advised to stop taking lactulose first if she starts to have diarrhea, and to taper down the other medicines accordingly until she has normal and regular bowel movements that are not diarrhea like in nature. (Rodrigo Turner) Patient seen and examined with resident and came up with plan together. A 51 year old female with nausea and non-bilious non-bloody vomiting. 04/07/17 22:44 Recent records reviewed, including imaging reports and GI consult. Essentially , the patient's symptoms have been thought to be due to gastroparesis. Given the no BMs today associated with the n/v, a repeat CT was done to r/o obstruction was negative. She was able to tolerate po in the ED. She never got the scripts that were advised by Dr. Rebollar; they will be written out for her and sent to her pharmacy. She feels better and will d/c to f/u pmd and GI. (Amirah Garcia) - Lab Interpretations Lab Results: 04/07/17 19:55 04/07/17 19:55 Lab Results 04/07/17 19:55: Sodium 142, Potassium 4.4, Chloride 96 L, Carbon Dioxide 32, Anion Gap 18, BUN 16, Creatinine 1.2, Est GFR ( Amer) 57, Est GFR (Non- Af Amer) 47, Random Glucose 90, Calcium 11.7 H, Total Bilirubin 0.5, AST 25, ALT 28, Alkaline Phosphatase 58, Total Protein 8.5 H, Albumin 4.9 H, Globulin 3.6, Albumin/Globulin Ratio 1.4, Lipase 36 04/07/17 19:55: WBC 7.2, RBC 5.04, Hgb 13.1, Hct 40.9, MCV 81.2, MCH 26.0, MCHC 32.0, RDW 14.3, Plt Count 375, MPV 10.3, Gran % 66.4, Lymph % (Auto) 26.1, [place] % (Auto) 6.0, Eos % (Auto) 1.1 L, Baso % (Auto) 0.4, Gran # 4.78, Lymph # 1.9, [place] # 0.4, Eos # 0.1, Baso # 0.03 04/07/17 19:34: Urine Color Yellow, Urine Appearance Clear, Urine pH 8.0, Ur Specific [place] 1.015, Urine Protein Trace H, Urine Glucose (UA) Negative, Urine Ketones Negative, Urine Blood Negative, Urine Nitrate Negative, Urine Bilirubin Negative, Urine Urobilinogen 0.2, Ur Leukocyte Esterase Negative, Urine RBC 1 - 3, Urine WBC 0 - 2, Ur Epithelial Cells 3 - 4, Urine Bacteria Mod - RAD Interpretation Radiology Orders: 04/07/17 19:31 ABDOMEN & PELVIS [ABD & PELVIS PO CONTRAST ONLY] [CT] Stat - Medication Orders Current Medication Orders: Discontinued Medications Acetaminophen (Tylenol 650 Mg Supp) 650 mg RC STAT STA Stop: 04/07/17 19:55 Last Admin: 04/07/17 20:24 Dose: 650 mg Sodium Chloride (Sodium Chloride 0.9%) 1,000 mls @ 999 mls/hr IV .Q1H1M STA Stop: 04/07/17 20:32 Last Admin: 04/07/17 19:45 Dose: 999 mls/hr Iohexol (Omnipaque 240 (50 Ml)) Confirm Administered Dose 50 ml .ROUTE .STK-MED ONE Stop: 04/07/17 19:37 Last Admin: 04/07/17 20:25 Dose: 50 ml Ondansetron HCl (Zofran Inj) 8 mg IVP STAT STA Stop: 04/07/17 19:33 Last Admin: 04/07/17 19:55 Dose: 8 mg Promethazine HCl (Phenergan Inj) 12.5 mg IVPB STAT STA Stop: 04/07/17 20:49 Last Admin: 04/07/17 21:24 Dose: 12.5 mg Disposition/Present on Arrival - Present on Arrival Any Indicators Present on Arrival: No History of DVT/PE: No History of Uncontrolled Diabetes: No Urinary Catheter: No History of Decub. Ulcer: No History Surgical Site Infection Following: None - Disposition Have Diagnosis and Disposition been Completed?: Yes Disposition Time: 22:36 <Rodrigo Thomas - Last Filed: 04/07/17 22:26> - Disposition Patient Plan: Discharge <Amirah Garcia - Last Filed: 04/07/17 22:47> - Disposition Diagnosis: Constipation, Gastroparesis, Vomiting Disposition: HOME/ ROUTINE Patient Problems: Current Active Problems Problem Status Onset Constipation Acute Condition: GOOD Additional Instructions: You have 4 prescriptions waiting for you at your pharmacy 1) Lactulose-if you have diarrhea, do not take this medicine. it will make your diarrhea worse 2) Miralax-take this daily 3) dulcolax- take this twice a day 4) Fleet enemas- only use this if you are unable to have a bowel movement after the other 3. do not do this every day Please come back to the ER for any other emergencies. Prescriptions: Bisacodyl [Ducolax] 5 mg PO BID #30 ect Lactulose [Enulose] 30 gm PO DAILY #15 packet Phosphate Enema [Fleet Enema 135 Ml] 133 ml RC PRN PRN #5 nma PRN Reason: Constipation Polyethylene Glycol 3350 [Miralax] 17 gm PO DAILY #15 packet Referrals: Basia Mohr MD [Primary Care Provider] - Follow up with primary
[2017-04-07] MEDS ORDERED: Sodium Chloride 0.9% 1,000 ML IV STA (19:32)
[2017-04-07] MEDS ORDERED: Iohexol 240 (50 ml) ONE (19:36)
[2017-04-07 19:42] LABS: URINE BILIRUBIN NEGATIVE (NEGATIVE); URINE BLOOD NEGATIVE (NEGATIVE); URINE GLUCOSE (UA) NEGATIVE (NEGATIVE); URINE LEUKOCYTE ESTERASE NEGATIVE Leu/uL (NEGATIVE); URINE NITRATE NEGATIVE (NEGATIVE); URINE PROTEIN TRACE mg/dL (<30 mg/dL); URINE UROBILINOGEN 0.2 E.U./dL (<1 E.U./dL)
[2017-04-07 19:46] LABS: URINE APPEARANCE CLEAR (CLEAR); URINE COLOR YELLOW (YELLOW)
[2017-04-07 20:23] LABS: HEMOGLOBIN 13.1 gm/dL (12.0-16.0); MEAN CELL VOLUME 81.2 fL (80.0-105.0); PLATELET COUNT 375 10^3/uL (120.0-450.0); RBC 5.04 10^6/uL (3.5-6.1); RED CELL DISTRIBUTION WIDTH 14.3 % (11.5-14.5); WHITE BLOOD COUNT 7.2 10^3/ul (4.5-11.0)
[2017-04-07 20:24] LABS: BASO # 0.03 K/mm3 (0.0-2.0); BASO % 0.4 % (0.0-3.0); EOS # 0.1 (0.0-0.7); EOS % 1.1 % (1.5-5.0); GRAN # 4.78 (1.4-6.5); GRAN % 66.4 % (50.0-68.0); LYMPH # 1.9 (1.2-3.4); LYMPH % 26.1 % (22.0-35.0); MEAN PLATELET VOLUME 10.3 fl (7.0-11.0); MONO # 0.4 (0.1-0.6)
[2017-04-07 20:39] LABS: ALB/GLOB RATIO 1.4 (1.1-1.8); ALBUMIN 4.9 g/dL (3.0-4.8); CALCIUM 11.7 mg/dL (8.4-10.5)
[2017-04-07 20:41] LABS: URINE BACTERIA MOD (NEG); URINE WBC 0 - 2 /hpf (0-6)
--- NOTE | 2017-04-07 22:21 | CT ---
EXAM: CT Abdomen and Pelvis Without Intravenous Contrast CLINICAL HISTORY: 51 years old, female; Pain; Abdominal pain; Other: Upper abdomen pain and vomiting; Prior surgery; Surgery date: 6+ months; Surgery type: Ap, hysterectomy TECHNIQUE: Axial computed tomography images of the abdomen and pelvis without intravenous contrast. This CT exam was performed using one or more of the following dose reduction techniques: automated exposure control, adjustment of the mA and/or kV according to patient size, and/or use of iterative reconstruction technique. Coronal and sagittal reformatted images were created and reviewed. COMPARISON: CT - ABD PELVIS W/O PO OR IV CONT 03/14/2017 5:04:04 AM FINDINGS: Lower thorax: Minimal atelectasis/scarring. ABDOMEN: Liver: Unremarkable. Gallbladder and bile ducts: No calcified stones. No ductal dilation. Pancreas: Unremarkable. No ductal dilation. Spleen: No splenomegaly. Adrenals: No mass. Kidneys and ureters: Mild scarring of kidneys. Few small renal calculi/calcifications. No hydronephrosis. Stomach and bowel: Few scattered diverticula within colon. No associated inflammatory stranding. Segmental areas of underdistention of colon. No definite mural thickening. No obstruction. Appendix: No findings to suggest acute appendicitis. PELVIS: Bladder: Unremarkable. No stones. Reproductive: Hysterectomy. ABDOMEN and PELVIS: Intraperitoneal space: No significant fluid collection. No free air. Bones/joints: Degenerative changes of spine. Degenerative anterolisthesis of lower lumbar spine. No acute fracture. Soft tissues: Unremarkable. Vasculature: [id number] atherosclerotic disease. No aneurysm. Lymph nodes: No pathologically enlarged lymph nodes. IMPRESSION: 1. No definite acute intraabdominal abnormality. 2. Incidental/non-acute findings are described above.
[2017-04-07 23:11] VITALS: BP 130/72; PULSE 79
== END 2017-04-07 22:30 | disposition home or self-care (01) ==
LOC: ED 18:24
DX: K31.84 Gastroparesis (principal); K59.00 Constipation, unspecified; I10 Essential (primary) hypertension; K21.9 Gastro-esophageal reflux disease without esophagitis; Z87.891 Personal history of nicotine dependence
CPT/HCPCS: 74176; 80053; 81001; 83690; 85025; 96361; 96374; 96375; 99283; J2405; J2550; J7040; Q9966

== ENCOUNTER 2017-04-12 13:27 | Emergency (ER) | payer MEDICAID ==
[2017-04-12 13:33] VITALS: BMI 23.8
[2017-04-12 13:34] VITALS: TEMP 97.8; O2SAT 100
[2017-04-12] MEDS ORDERED: Sodium Chloride 0.9% 1,000 ML IV ONE (14:15)
[2017-04-12] MEDS ORDERED: Alum-Mag Hydrox-Simethicone Susp (30 mL) PO STA (14:22)
--- NOTE | 2017-04-12 14:22 | ED PDOC ---
Arrival/HPI - General Chief Complaint: Abdominal Pain Time Seen by Provider: 04/12/17 13:47 - History of Present Illness Narrative History of Present Illness (Text): 04/12/17 14:18 Pt is a 51 year old female with past medical history significant for gastroparesis, parkinsons, hypertension, hypothyroidism and COPD who presents with a 24 hour history of abdominal discomfort. Pt reports having left sided abdominal pain that is sharp, stabbing pain rated as a 10/10. She indicates the pain is constant and is relieved by nothing. She indicates the pain is worsened with movement. She reports the pain is similar to previous abdominal pain episodes, including her most recent visit 04/07/2017. She reports having one episode of non-bilious, non bloody vomit this morning after eating breakfast. Pt denies chest pain, shortness of breath, and fever. (Luther Feldman) Past Medical History - Provider Review Nursing Documentation Reviewed: Yes - Past History Past History: No Previous - Infectious Disease Hx of Infectious Diseases: None - Tetanus Immunization Tetanus Immunization: Unknown - Cardiac Hx Cardiac Disorders: Yes Hx Hypertension: Yes - Pulmonary Hx Respiratory Disorders: Yes Hx Chronic Obstructive Pulmonary Disease (COPD): Yes - Neurological Hx Neurological Disorder: Yes Hx Dizziness: Yes Hx Parkinson's Disease: Yes - HEENT Hx HEENT Disorder: Yes (TONSILLECTOMY) - Renal Hx Renal Disorder: No - Endocrine/Metabolic Hx Hypothyroidism: Yes - Hematological/Oncological Hx Blood Disorders: Yes Hx Anemia: Yes - Integumentary Hx Dermatological Disorder: No - Musculoskeletal/Rheumatological Hx Musculoskeletal Disorders: Yes Hx Falls: Yes - Gastrointestinal Hx Gastrointestinal Disorders: Yes (APPENDECTOMY,GASTRITIS,GASTROPARESIS, GASTROENTERITIS,) Hx Gastroesophageal Reflux: Yes - Genitourinary/Gynecological Hx Genitourinary Disorders: No (TUBAL LIGATION,HYSTERECTOMY) - Psychiatric Hx Psychophysiologic Disorder: Yes (RX DRUG ABUSE,ETOH ABUSE,SMOKED CIGARETTES QUIT 2 YRS AGO) Hx Anxiety: Yes Hx Depression: Yes Hx Substance Use: Yes (RX DRUG ABUSE) Other/Comment: ANEMIA - Surgical History Hx Appendectomy: Yes Hx Hysterectomy: Yes Hx Tonsillectomy: Yes Hx Tubal Ligation: Yes - Anesthesia Hx Anesthesia: Yes Hx Anesthesia Reactions: No Hx Malignant Hyperthermia: No - Suicidal Assessment Feels Threatened In Home Enviroment: No Family/Social History - Physician Review Nursing Documentation Reviewed: Yes Family/Social History: No Known Family HX Smoking Status: Former Smoker Hx Alcohol Use: Yes (social) Hx Substance Use: Yes (RX DRUG ABUSE) Hx Substance Use Treatment: No Allergies/Home Meds Allergies/Adverse Reactions: Allergies No Known Allergies Allergy (Verified 04/07/17 18:36) Home Medications: Home Meds Medication Instructions Recorded Confirmed Alendronate [Fosamax] 70 mg PO QWK 07/01/16 04/07/17 Atorvastatin [Lipitor] 20 mg PO DAILY 07/01/16 04/07/17 Fluticasone/Salmeterol 250/50 1 puff IH BID 07/01/16 04/07/17 [Advair Diskus 250/50] Tiotropium [place] Inhaler 1 puff INH DAILY 11/03/16 04/07/17 [Spiriva Inhalation Handihaler Device] Review of Systems - Physician Review All systems were reviewed & negative as marked: Yes - Review of Systems Constitutional: absent: Fatigue, Fevers Gastrointestinal: Abdominal Pain, Diarrhea, Nausea, Vomiting (one episode). absent: Food Intolerance Physical Exam Vital Signs Reviewed: Yes Temperature: Afebrile Blood Pressure: Hypertensive Respiratory Rate: Normal Appearance: Positive for: Uncomfortable Pain Distress: Moderate Mental Status: Positive for: Alert and Oriented X 3 - Systems Exam Head: Present: Atraumatic, Normocephalic Pupils: Present: PERRL Extroacular Muscles: Present: EOMI Conjunctiva: Present: Normal Mouth: Present: Moist Mucous Membranes Neck: Present: Normal Range of Motion Respiratory/Chest: Present: Clear to Auscultation, Good Air Exchange. No: Respiratory Distress, Accessory Muscle Use Cardiovascular: Present: Regular Rate and Rhythm, Normal S1, S2. No: Murmurs Abdomen: No: Tenderness, Distention, Normal Bowel Sounds, Peritoneal Signs, Rebound, Guarding, McBurney's Point Tender Upper Extremity: Present: Normal Inspection. No: Cyanosis, Edema Lower Extremity: Present: Normal Inspection. No: Edema Neurological: Present: GCS=15, CN II-XII Intact, Speech Normal Psychiatric: Present: Alert, Oriented x 3, Anxious, Agitated Medical Decision Making - Lab Interpretations I have reviewed the lab results: Yes ED Course and Treatment: 04/12/17 14:28 Impression: Mrs. Barnes is a 51 year old female with past medical history significant for gastroparesis, parkinsons, hypothyroid, and COPD who presents with abdominal pain for the past 24-48 hours similar to recent episodes. Differential Diagnosis included but are not limited to: - gastroparesis - chronic gastritis Plan: - CBC, CMP, Lipase, Urinalysis - Zofran, Pepcid, Maalox, IVF - Reassess and disposition Progress Notes: 04/12/17 15:17 (Luther Feldman) A 51 year old female with abdominal pain. In agreement with resident note, which includes further HPI details. Patient was seen and evaluated with resident , came up with plan and treatment together. On exam, no abdominal guarding. ( Matthew Wiley) - Lab Interpretations Lab Results: 04/12/17 14:50 04/12/17 14:50 Lab Results 04/12/17 14:50: Sodium 136, Potassium 3.7, Chloride 95 L, Carbon Dioxide 26, Anion Gap 19, BUN 17, Creatinine 1.5 H, Est GFR ( Amer) 44, Est GFR (Non- Af Amer) 36, Random Glucose 98, Calcium 10.6 H, Total Bilirubin 0.5, AST 29, ALT 21, Alkaline Phosphatase 61, Total Protein 9.0 H, Albumin 5.0 H, Globulin 4.0, Albumin/Globulin Ratio 1.3, Lipase 59 04/12/17 14:50: WBC 10.1 D, RBC 4.61, Hgb 12.4, Hct 36.5, MCV 79.2 L, MCH 26.9 , MCHC 34.0, RDW 13.1, Plt Count 355, MPV 9.9, Gran % 80.5 H, Lymph % (Auto) 14.0 L, [place] % (Auto) 4.2, Eos % (Auto) 0.8 L, Baso % (Auto) 0.5, Gran # 8.15 H , Lymph # 1.4, [place] # 0.4, Eos # 0.1, Baso # 0.05 - Medication Orders Current Medication Orders: Sodium Chloride (Sodium Chloride 0.9%) 1,000 mls @ 250 mls/hr IV .Q4H ONE Stop: 04/12/17 18:14 Last Admin: 04/12/17 14:54 Dose: 250 mls/hr Discontinued Medications Al Hydrox/Mg Hydrox/Simethicone (Maalox Plus 30 Ml) 30 ml PO STAT STA Stop: 04/12/17 14:23 Last Admin: 04/12/17 14:52 Dose: 30 ml Famotidine (Pepcid) 20 mg IVP STAT STA Stop: 04/12/17 14:23 Last Admin: 04/12/17 14:53 Dose: 20 mg Ondansetron HCl (Zofran Inj) 4 mg IVP STAT STA Stop: 04/12/17 14:16 Last Admin: 04/12/17 14:53 Dose: 4 mg - PA / OPERATIONS PROFESSIONAL / Resident Statement MD/DO has reviewed & agrees with the documentation as recorded. MD/DO has examined the patient and agrees with the treatment plan. Disposition/Present on Arrival - Present on Arrival Any Indicators Present on Arrival: No History of DVT/PE: No History of Uncontrolled Diabetes: No Urinary Catheter: No History of Decub. Ulcer: No History Surgical Site Infection Following: None - Disposition Have Diagnosis and Disposition been Completed?: Yes Disposition Time: 15:15 - Disposition Diagnosis: Gastro enteritis Disposition: HOME/ ROUTINE Additional Instructions: M, thank you for letting us take care of you today. Your provider was Dr. Feldman. You were treated for gastritis. The emergency medical care you received today was directed at your acute symptoms. If you were prescribed any medication, please fill it and take as directed. It may take several days for your symptoms to resolve. Return to the Emergency Department if your symptoms worsen, do not improve, or if you have any other problems. Please contact your doctor or call one of the physicians/clinics you have been referred to that are listed on the Patient Visit Information form that is included in your discharge packet. Bring any paperwork you were given at discharge with you along with any medications you are taking to your follow up visit. Our treatment cannot replace ongoing medical care by a primary care provider (PCP) outside of the emergency department. Thank you for allowing the [facility] team to be part of your care today.
[2017-04-12 15:05] LABS: BASO # 0.05 K/mm3 (0.0-2.0); BASO % 0.5 % (0.0-3.0); EOS # 0.1 (0.0-0.7); EOS % 0.8 % (1.5-5.0); GRAN # 8.15 (1.4-6.5); GRAN % 80.5 % (50.0-68.0); HEMOGLOBIN 12.4 gm/dL (12.0-16.0); LYMPH # 1.4 (1.2-3.4); MEAN CELL VOLUME 79.2 fL (80.0-105.0); MEAN CORPUSCULAR HEMOGLOBIN 26.9 pg (25.0-35.0); MEAN PLATELET VOLUME 9.9 fl (7.0-11.0); MONO # 0.4 (0.1-0.6); MONO % 4.2 % (1.0-6.0); PLATELET COUNT 355 10^3/uL (120.0-450.0); RBC 4.61 10^6/uL (3.5-6.1); RED CELL DISTRIBUTION WIDTH 13.1 % (11.5-14.5); WHITE BLOOD COUNT 10.1 10^3/ul (4.5-11.0)
[2017-04-12 15:13] LABS: ALB/GLOB RATIO 1.3 (1.1-1.8); CALCIUM 10.6 mg/dL (8.4-10.5)
[2017-04-12 15:56] VITALS: BP 169/77; PULSE 99; RESP 16
--- NOTE | 2017-04-12 21:01 | CARD ---
APPROVED REPORT EKG Measurement Heart [id number] OR [id number] <Conclusion> Normal sinus rhythm Normal ECG
== END 2017-04-12 15:53 | disposition home or self-care (01) ==
LOC: ED 13:27
DX: K52.9 Noninfective gastroenteritis and colitis, unspecified (principal)
CPT/HCPCS: 80053; 83690; 85025; 93005; 96374; 96375; 99284; J2405; J7040

== ENCOUNTER 2018-11-08 11:10 | Outpatient (CLI) | payer OTHER | END 2018-11-08 11:11 | disposition home or self-care (01) | LOC: RAD 11:10 ==